=== PATIENT | male | born 1965 | race Caucasian/White ===

== ENCOUNTER 2018-05-24 19:37 | Emergency (ER) | payer MEDICARE ==
[~2018-05-24] VITALS: Ht 190.5 cm; Wt 65.8 kg
== END 2018-05-25 00:09 | disposition home or self-care (01) ==
LOC: ER 19:37
DX: S80.212A Abrasion, left knee, initial encounter (principal); W19.XXXA Unspecified fall, initial encounter
CPT/HCPCS: 73070; 73502; 73562-LT; 73610; 99283-25; A9270-GY

== ENCOUNTER 2018-07-12 17:38 | Emergency (ER) | payer MEDICARE, OTHER ==
[~2018-07-12] VITALS: Ht 190.5 cm; Wt 68.0 kg
[2018-07-12] MEDS ORDERED: SINEMET 25-1001 EACH PO (18:18)
[2018-07-12] MEDS ORDERED: GABA600 PO (18:19)
[2018-07-12] MEDS ORDERED: FLUO10 PO (18:19)
[2018-07-12 19:32] LABS: BASOPHILS ABSOLUTE AUTO 0.05 K/mm3 (0.00-0.23); BASOPHILS PERCENT AUTO 1 % (0-2); EOSINOPHILS ABSOLUTE AUTO 0.18 K/mm3 (0.00-0.68); EOSINOPHILS PERCENT AUTO 2 % (0-6); Hematocrit 40.4 % (37.0-53.0); Hemoglobin 13.4 g/dL (13.5-17.5); IMMATURE GRAN ABSOLUTE AUTO 0.02 K/mm3 (0.00-0.10); IMMATURE GRAN PERCENT AUTO 0 % (0-1); LYMPHOCYTES ABSOLUTE AUTO 2.35 K/mm3 (0.84-5.20); LYMPHOCYTES PERCENT AUTO 31 % (21-46); MONOCYTES ABSOLUTE AUTO 0.69 K/mm3 (0.16-1.47); MONOCYTES PERCENT AUTO 9 % (4-13); Mean Corpuscular HGB Conc 33.2 g/dL (31.5-36.5); Mean Corpuscular Volume 90 fL (80-100); Mean Platelet Volume 9.3 fL (9.1-12.4); NEUTROPHILS PERCENT AUTO 57 % (41-73); Platelet Count 238 K/mm3 (150-400); RDW Coefficient Variation 11.9 % (11.7-14.2); RDW Standard Deviation 39.6 fL (35.1-46.3); Red Blood Cell Count 4.47 M/mm3 (4.30-5.90); White Blood Cell Count 7.59 K/mm3 (4.00-11.30)
[2018-07-12 19:46] LABS: C-REACTIVE PROTEIN, EXT RANGE 0.352 mg/dL (0.000-0.300)
[2018-07-12 19:48] LABS: Alanine Aminotransfer (ALT/SGP 13 U/L (12-78); Albumin, Blood 4.2 g/dL (3.4-5.0); Albumin/Globulin Ratio 1.1 (0.8-1.8); Alk Phos 63 U/L (50-136); Anion Gap 4 mmol/L (6-16); Aspartate Aminotrans (AST/SGOT 19 U/L (12-37); Bilirubin, Total 0.4 mg/dL (0.1-1.0); Blood Urea Nitrogen 16 mg/dL (8-24); Bun/Creatinine Ratio 19.5 (12.0-20.0); CO2, Blood 28 mmol/L (21-32); CPK Creatine Kinase 235 U/L (39-308); Calcium, Blood 9.2 mg/dL (8.5-10.1); Chloride, Blood 106 mmol/L (98-108); Creatinine, Blood 0.82 mg/dL (0.60-1.20); Globulin, Blood 3.7 g/dL (2.2-4.0); Glomerular Filtration Rate >60 (60-); Glucose, Blood 86 mg/dL (70-99); Potassium, Blood 4.4 mmol/L (3.5-5.5); Sodium, Blood 138 mmol/L (136-145); Total Protein, Blood 7.9 g/dL (6.4-8.2)
== END 2018-07-12 21:38 | disposition home or self-care (01) ==
LOC: ER 17:38
PROVIDERS: Physician Assistant
DX: S46.211A Strain of muscle, fascia and tendon of other parts of biceps, right arm, initial encounter (principal); W19.XXXA Unspecified fall, initial encounter; Z79.899 Other long term (current) drug therapy; Z87.891 Personal history of nicotine dependence; G20 Parkinson's disease
CPT/HCPCS: 36415; 73080; 80053; 82550; 83690; 84484; 85025; 85651; 86140; 96361; 96374; 99283-25; A9270-GY; J1170; J7030; Q0163

== ENCOUNTER 2018-08-04 03:37 | Emergency (ER) | payer MEDICARE, OTHER ==
[~2018-08-04] VITALS: Ht 188 cm; Wt 74.8 kg
[~2018-08-04 03:37] MED LIST: FLUO10 PO; GABA600 PO; SINEMET 25-1001 EACH PO
[2018-08-04] MEDS ORDERED: ONDA4ODT MM (04:41)
== END 2018-08-04 06:00 | disposition home or self-care (01) ==
LOC: ER 03:37
DX: S06.9X9A Unspecified intracranial injury with loss of consciousness of unspecified duration, initial encounter (principal); S00.83XA Contusion of other part of head, initial encounter; G20 Parkinson's disease; Z79.899 Other long term (current) drug therapy; W19.XXXA Unspecified fall, initial encounter
CPT/HCPCS: 70450; 72125; 96374; 96375; 99285-25; J2060; J2405; J3010

== ENCOUNTER 2019-01-05 19:46 | Emergency (ER) | payer MEDICARE, OTHER ==
[~2019-01-05] VITALS: Ht 188 cm; Wt 79.4 kg
[~2019-01-05 19:46] MED LIST changes: +ONDA4ODT MM
[2019-01-05 20:14] LABS: BASOPHILS ABSOLUTE AUTO 0.07 K/mm3 (0.00-0.23); BASOPHILS PERCENT AUTO 1 % (0-2); EOSINOPHILS PERCENT AUTO 5 % (0-6); Hematocrit 41.2 % (37.0-53.0); Hemoglobin 13.6 g/dL (13.5-17.5); IMMATURE GRAN ABSOLUTE AUTO 0.01 K/mm3 (0.00-0.10); IMMATURE GRAN PERCENT AUTO 0 % (0-1); LYMPHOCYTES ABSOLUTE AUTO 1.97 K/mm3 (0.84-5.20); LYMPHOCYTES PERCENT AUTO 32 % (21-46); MONOCYTES ABSOLUTE AUTO 0.49 K/mm3 (0.16-1.47); MONOCYTES PERCENT AUTO 8 % (4-13); Mean Corpuscular HGB 29.8 pg (26.0-34.0); Mean Corpuscular Volume 90 fL (80-100); Mean Platelet Volume 9.1 fL (9.1-12.4); NEUTROPHILS ABSOLUTE AUTO 3.25 K/mm3 (1.96-9.15); NEUTROPHILS PERCENT AUTO 54 % (41-73); Platelet Count 250 K/mm3 (150-400); RDW Coefficient Variation 11.9 % (11.7-14.2); RDW Standard Deviation 39.4 fL (35.1-46.3); Red Blood Cell Count 4.57 M/mm3 (4.30-5.90); White Blood Cell Count 6.09 K/mm3 (4.00-11.30)
[2019-01-05 20:35] LABS: Alanine Aminotransfer (ALT/SGP 15 U/L (12-78); Albumin, Blood 3.9 g/dL (3.4-5.0); Albumin/Globulin Ratio 1.1 (0.8-1.8); Alk Phos 90 U/L (50-136); Anion Gap 5 mmol/L (6-16); Aspartate Aminotrans (AST/SGOT 19 U/L (12-37); Bilirubin, Total 0.4 mg/dL (0.1-1.0); Blood Urea Nitrogen 16 mg/dL (8-24); Bun/Creatinine Ratio 17.8 (12.0-20.0); CO2, Blood 27 mmol/L (21-32); Calcium, Blood 9.1 mg/dL (8.5-10.1); Chloride, Blood 107 mmol/L (98-108); Globulin, Blood 3.4 g/dL (2.2-4.0); Glomerular Filtration Rate >60 (60-); Glucose, Blood 83 mg/dL (70-99); Potassium, Blood 4.3 mmol/L (3.5-5.5); Sodium, Blood 139 mmol/L (136-145); Total Protein, Blood 7.3 g/dL (6.4-8.2); Troponin I <0.015 ng/mL (0.000-0.040)
== END 2019-01-06 00:19 | disposition home or self-care (01) ==
LOC: ER 19:46
PROVIDERS: Emergency Medicine
DX: R55 Syncope and collapse (principal); S01.81XA Laceration without foreign body of other part of head, initial encounter; G20 Parkinson's disease; Z87.891 Personal history of nicotine dependence; Z79.899 Other long term (current) drug therapy; W01.10XA Fall on same level from slipping, tripping and stumbling with subsequent striking against unspecified object, initial encounter
CPT/HCPCS: 12011; 70450; 72125; 80053; 84484; 85025; 93005; 93010; 96374-59; 99284-25; J3010

== ENCOUNTER 2019-01-28 10:10 | Emergency (ER) | payer MEDICARE, OTHER ==
[~2019-01-28] VITALS: Ht 188 cm; Wt 79.4 kg
== END 2019-01-28 11:52 | disposition home or self-care (01) ==
LOC: ER 10:10
DX: M25.572 Pain in left ankle and joints of left foot (principal); Z87.891 Personal history of nicotine dependence
CPT/HCPCS: 29515; 73610; 99283-25; L1906

== ENCOUNTER 2019-03-19 04:10 | Emergency (ER) | payer MEDICARE, OTHER ==
[~2019-03-19] VITALS: Ht 188 cm; Wt 79.4 kg
[2019-03-19] MEDS ORDERED: AMAN100 PO (04:26)
[2019-03-19 05:06] LABS: BASOPHILS ABSOLUTE AUTO 0.05 K/mm3 (0.00-0.23); BASOPHILS PERCENT AUTO 1 % (0-2); EOSINOPHILS ABSOLUTE AUTO 0.34 K/mm3 (0.00-0.68); EOSINOPHILS PERCENT AUTO 7 % (0-6); Hematocrit 36.4 % (37.0-53.0); Hemoglobin 11.8 g/dL (13.5-17.5); IMMATURE GRAN ABSOLUTE AUTO 0.01 K/mm3 (0.00-0.10); IMMATURE GRAN PERCENT AUTO 0 % (0-1); LYMPHOCYTES ABSOLUTE AUTO 1.89 K/mm3 (0.84-5.20); LYMPHOCYTES PERCENT AUTO 36 % (21-46); MONOCYTES PERCENT AUTO 12 % (4-13); Mean Corpuscular HGB 29.5 pg (26.0-34.0); Mean Corpuscular HGB Conc 32.4 g/dL (31.5-36.5); Mean Corpuscular Volume 91 fL (80-100); Mean Platelet Volume 9.5 fL (9.1-12.4); NEUTROPHILS ABSOLUTE AUTO 2.33 K/mm3 (1.96-9.15); NEUTROPHILS PERCENT AUTO 45 % (41-73); Platelet Count 214 K/mm3 (150-400); RDW Coefficient Variation 12.1 % (11.7-14.2); RDW Standard Deviation 40.7 fL (35.1-46.3); White Blood Cell Count 5.22 K/mm3 (4.00-11.30)
[2019-03-19 05:17] LABS: Alanine Aminotransfer (ALT/SGP 21 U/L (12-78); Albumin, Blood 3.6 g/dL (3.4-5.0); Albumin/Globulin Ratio 1.2 (0.8-1.8); Alk Phos 76 U/L (50-136); Anion Gap 4 mmol/L (6-16); Aspartate Aminotrans (AST/SGOT 13 U/L (12-37); Bilirubin, Total 0.4 mg/dL (0.1-1.0); Blood Urea Nitrogen 22 mg/dL (8-24); Bun/Creatinine Ratio 26.3 (12.0-20.0); CO2, Blood 27 mmol/L (21-32); Calcium, Blood 8.6 mg/dL (8.5-10.1); Chloride, Blood 108 mmol/L (98-108); Creatinine, Blood 0.84 mg/dL (0.60-1.20); Globulin, Blood 3.1 g/dL (2.2-4.0); Glomerular Filtration Rate >60 (60-); Glucose, Blood 84 mg/dL (70-99); Magnesium, Blood 2.1 mg/dL (1.6-2.4); Potassium, Blood 4.2 mmol/L (3.5-5.5); Sodium, Blood 139 mmol/L (136-145); Total Protein, Blood 6.7 g/dL (6.4-8.2)
== END 2019-03-19 07:29 | disposition home or self-care (01) ==
LOC: ER 04:10
PROVIDERS: Emergency Medicine
DX: R60.0 Localized edema (principal); Z79.899 Other long term (current) drug therapy; Z87.891 Personal history of nicotine dependence
CPT/HCPCS: 36415; 80053; 83735; 83880; 85025; 93971; 99284-25

== ENCOUNTER 2019-08-02 14:56 | Observation (INO) | payer MEDICARE, OTHER ==
[~2019-08-02] VITALS: Ht 188 cm; Wt 78.9 kg
[~2019-08-02 14:56] MED LIST changes: +AMAN100 PO; +CARBIDOPA-LEVO1 EA15 PO; -FLUO10 PO; +Prozac40 MG PO; -SINEMET 25-1001 EACH PO
[2019-08-02] MEDS ORDERED: GABAPENTIN600 MG PO (15:24)
[2019-08-02 15:46] LABS: BASOPHILS ABSOLUTE AUTO 0.06 K/mm3 (0.00-0.23); BASOPHILS PERCENT AUTO 1 % (0-2); EOSINOPHILS ABSOLUTE AUTO 0.35 K/mm3 (0.00-0.68); EOSINOPHILS PERCENT AUTO 5 % (0-6); Hematocrit 42.3 % (37.0-53.0); Hemoglobin 13.6 g/dL (13.5-17.5); IMMATURE GRAN ABSOLUTE AUTO 0.02 K/mm3 (0.00-0.10); IMMATURE GRAN PERCENT AUTO 0 % (0-1); LYMPHOCYTES ABSOLUTE AUTO 1.56 K/mm3 (0.84-5.20); LYMPHOCYTES PERCENT AUTO 21 % (21-46); MONOCYTES ABSOLUTE AUTO 0.69 K/mm3 (0.16-1.47); MONOCYTES PERCENT AUTO 9 % (4-13); Mean Corpuscular HGB 28.9 pg (26.0-34.0); Mean Corpuscular HGB Conc 32.2 g/dL (31.5-36.5); Mean Corpuscular Volume 90 fL (80-100); Mean Platelet Volume 9.1 fL (9.1-12.4); NEUTROPHILS ABSOLUTE AUTO 4.73 K/mm3 (1.96-9.15); NEUTROPHILS PERCENT AUTO 64 % (41-73); Platelet Count 278 K/mm3 (150-400); RDW Standard Deviation 39.8 fL (35.1-46.3); Red Blood Cell Count 4.71 M/mm3 (4.30-5.90); White Blood Cell Count 7.41 K/mm3 (4.00-11.30)
[2019-08-02 15:48] LABS: Alanine Aminotransfer (ALT/SGP 30 U/L (12-78); Albumin, Blood 3.8 g/dL (3.4-5.0); Alk Phos 77 U/L (50-136); Anion Gap 3 mmol/L (6-16); Aspartate Aminotrans (AST/SGOT 34 U/L (12-37); Bilirubin, Total 0.3 mg/dL (0.1-1.0); Blood Urea Nitrogen 13 mg/dL (8-24); Bun/Creatinine Ratio 15.4 (12.0-20.0); CO2, Blood 30 mmol/L (21-32); Calcium, Blood 9.2 mg/dL (8.5-10.1); Chloride, Blood 105 mmol/L (98-108); Creatinine, Blood 0.85 mg/dL (0.60-1.20); Globulin, Blood 3.9 g/dL (2.2-4.0); Glomerular Filtration Rate >60 (60-); Glucose, Blood 72 mg/dL (70-99); Potassium, Blood 4.9 mmol/L (3.5-5.5); Sodium, Blood 138 mmol/L (136-145); Total Protein, Blood 7.7 g/dL (6.4-8.2); Troponin I <0.015 ng/mL (0.000-0.040)
[2019-08-02 19:33] LABS: Source, Urine Clean Catch
[2019-08-02 19:43] LABS: Appearance, Urine Clear (Clear); Bilirubin, Urine Neg (Neg); Blood, Urine Neg (Neg); Color, Urine Yellow (P-Yellow); Glucose Qualitative, Urine Neg (Neg); Ketones, Urine Neg (Neg); Leukocyte Esterase, Urine 1+ (Neg); Nitrite, Urine Neg (Neg); Protein, Urine Neg (Neg); Urobilinogen, Urine NORM (Normal); pH, Urine 6.5 (5.0-8.0)
[2019-08-02 19:50] LABS: Red Blood Cells, Urine 0-2 /hpf (0-2); Squamous Epithelial Cells Not Seen /hpf (Few); White Blood Cells, Urine 0-2 /hpf (0-5)
[2019-08-02 19:51] LABS: Bacteria Mod /hpf; Hyaline Casts 0-2 /lpf (0-2)
[2019-08-03 05:08] LABS: CHOL/HDL RATIO 3.1; Cholesterol 163 mg/dL (50-200); HDL Cholesterol 53 mg/dL (>39); LDL/HDL RATIO 1.7; Low Density Lipoprotein Chol 92 mg/dL (0-110); Triglycerides 92 mg/dL (30-160); Very Low Density Lipoprot Chol 18 mg/dL (6-32)
[2019-08-03] MEDS ORDERED: METH40 PO (06:32)
[2019-08-03] MEDS ORDERED: ASPI81CH PO (13:10)
--- NOTE | 2019-08-03 15:06 | NUR ---
Per admit trigger, I met with Mr. Johnson to offer information/education about advanced care planning. He was very interested in completing an Advanced Directive. I explained the document to him. He plans to complete it post-discharge. I will remain available.
--- NOTE | 2019-08-03 15:42 | NUR ---
DISCHARGE NOTE PT WENT HOME BY [facility]AXI. PIV REMOVED. ONLY NEW MED WAS ASPIRIN (OTC), SO MEDS WERE NOT FAXED, BUT WENT OVER MED CHANGES. EDUCATED ON CVA PREVENTION. [facility] IS TO CALL TO MAKE F/U APPT. PT GOT HIS ONE DOSE OF METHADONE PRIOR TO DC.
== END 2019-08-03 15:17 | disposition home or self-care (01) ==
LOC: ER 14:56 → MEDS 14:57 → ENPENDDIS 08-03 12:35 → MEDS 08-03 15:17
PROVIDERS: Emergency Medicine; ADMIT Internal Medicine
DX: I65.23 Occlusion and stenosis of bilateral carotid arteries (principal); G20 Parkinson's disease; G89.4 Chronic pain syndrome; Z79.899 Other long term (current) drug therapy; Z79.891 Long term (current) use of opiate analgesic; Z87.891 Personal history of nicotine dependence
CPT/HCPCS: 36415; 70450; 70551; 71045; 80053; 80061; 81001; 82947; 84484; 85025; 87086; 93005; 93010; 93880; 96372; 96374; 97166; 97530; 99285-25; A9270; G0378; J1650; J2405

== ENCOUNTER 2020-01-26 11:38 | Inpatient (IN) | payer MEDICARE, OTHER ==
[~2020-01-26] VITALS: Ht 188 cm; Wt 79.6 kg
[~2020-01-26 11:38] MED LIST changes: +ASPI81CH PO; +GABAPENTIN600 MG PO; +METH40 PO
[2020-01-26 12:25] LABS: BASOPHILS ABSOLUTE AUTO 0.05 K/mm3 (0.00-0.23); BASOPHILS PERCENT AUTO 1 % (0-2); EOSINOPHILS ABSOLUTE AUTO 0.01 K/mm3 (0.00-0.68); EOSINOPHILS PERCENT AUTO 0 % (0-6); Hematocrit 41.2 % (37.0-53.0); Hemoglobin 13.6 g/dL (13.5-17.5); IMMATURE GRAN ABSOLUTE AUTO 0.02 K/mm3 (0.00-0.10); IMMATURE GRAN PERCENT AUTO 0 % (0-1); LYMPHOCYTES ABSOLUTE AUTO 0.66 K/mm3 (0.84-5.20); LYMPHOCYTES PERCENT AUTO 8 % (21-46); MONOCYTES ABSOLUTE AUTO 0.45 K/mm3 (0.16-1.47); MONOCYTES PERCENT AUTO 5 % (4-13); Mean Corpuscular HGB 30.1 pg (26.0-34.0); Mean Corpuscular Volume 91 fL (80-100); Mean Platelet Volume 9.6 fL (9.1-12.4); NEUTROPHILS ABSOLUTE AUTO 7.39 K/mm3 (1.96-9.15); NEUTROPHILS PERCENT AUTO 86 % (41-73); Platelet Count 282 K/mm3 (150-400); RDW Coefficient Variation 12.3 % (11.7-14.2); Red Blood Cell Count 4.52 M/mm3 (4.30-5.90); White Blood Cell Count 8.58 K/mm3 (4.00-11.30)
[2020-01-26 12:44] LABS: Alanine Aminotransfer (ALT/SGP 50 U/L (12-78); Albumin, Blood 3.8 g/dL (3.4-5.0); Albumin/Globulin Ratio 1.1 (0.8-1.8); Alk Phos 100 U/L (50-136); Anion Gap 10 mmol/L (6-16); Aspartate Aminotrans (AST/SGOT 40 U/L (12-37); Bilirubin, Total 0.3 mg/dL (0.1-1.0); Blood Urea Nitrogen 13 mg/dL (8-24); Bun/Creatinine Ratio 20.3 (12.0-20.0); CO2, Blood 22 mmol/L (21-32); Calcium, Blood 9.2 mg/dL (8.5-10.1); Chloride, Blood 104 mmol/L (98-108); Creatinine, Blood 0.64 mg/dL (0.60-1.20); Globulin, Blood 3.6 g/dL (2.2-4.0); Glomerular Filtration Rate >60 (60-); Glucose, Blood 115 mg/dL (70-99); Potassium, Blood 4.5 mmol/L (3.5-5.5); Sodium, Blood 136 mmol/L (136-145); Total Protein, Blood 7.4 g/dL (6.4-8.2)
[2020-01-26 16:03] LABS: U Amphetamine Screen Not Detected; U Barbituate Screen Not Detected; U Benzodiazapine Screen Not Detected; U Cocaine Screen Not Detected; U Methadone Screen DETECTED; U Methamphetamine Screen Not Detected; U Opiates Screen Not Detected; U Phencyclidine Screen Not Detected
[2020-01-26 16:04] LABS: U Buprenorphine Screen Not Detected; U Cannabinoids Screen Not Detected; U Oxycodone Screen Not Detected; U Propoxyphene Screen Not Detected
[2020-01-26 16:39] LABS: International Normalized Ratio 0.98; Prothrombin Time Results 10.5 Sec (9.7-11.5)
--- NOTE | 2020-01-26 19:10 | NUR ---
ADMIT NOTE RECEIVED REPORT FROM ENMA AYALA IN ED. PT TO ROOM AT 1755, 4 PERSON TRANSFER ASSIST WITH SLIDER SHEET. PT ON IV FLUDIS WITH ADDITIVES. SEVERE TREMORS; NUMB/TINGLING; COLLINS 7/10; DIAPHORETIC; ANXIOUS; CIWA 25; MEDICATED PER EMAR. PT STATES LAST DRINK 0700 01/26/20; DRINKING 1/2 GALLOR OF WHISKEY DAILY. PT LIVES WITH BROTHER WHO HELPS WHEN HE IS NOT AT WORK, PT STATES HE WALKS WITH WALKER SHORT DISTANCES. OUTPATIENT PLANS TO BE ADMITED TO [facility]. PT ORIENTED TO ROOM AND CALL LIGHT. EDUCATED ON FALL RISK AND BED ALARM. PT A&Ox4; ANSWER QUESTIONS APPROPRIATELY, SPEECH SLURRED AT TIMES. PUPILS EQUAL AT 5 MM, SLUGGISH REPOSNSE TO LIGHT. PT DENIES PAIN, SOB, NAUSEA AND DIZZINESS. VSS. NO OTHER ACUTE CHAGNES NOTED. BED IN LOW, BED ALARM ON, CALL LIGHT WITHIN REACH.
--- NOTE | 2020-01-26 20:05 | NUR ---
ASSUMED CARE RECEIVED REPORT BEDSIDE FROM ENMA MIRZA; PT SLEEPING SOUNDLY; CAMERA VERIFIED ON IN ROOM; VSS; CURRENTLY NO TELE ON DUE TO TREMORS PER REPORT; O2 SATS >93 ON RA; SEIZURE PADS IN PLACE; CALL LIGHT IN REACH; BED IN LOWEST POSITION; BED ALARM ON FOR SAFETY.
[2020-01-27 04:10] LABS: Alanine Aminotransfer (ALT/SGP 9 U/L (12-78); Albumin/Globulin Ratio 0.9 (0.8-1.8); Alk Phos 80 U/L (50-136); Anion Gap 6 mmol/L (6-16); Aspartate Aminotrans (AST/SGOT 27 U/L (12-37); Bilirubin, Direct 0.1 mg/dL (0.0-0.3); Bilirubin, Indirect 0.6 mg/dL (0.1-0.7); Bilirubin, Total 0.7 mg/dL (0.1-1.0); Blood Urea Nitrogen 12 mg/dL (8-24); Bun/Creatinine Ratio 16.1 (12.0-20.0); CO2, Blood 27 mmol/L (21-32); Chloride, Blood 107 mmol/L (98-108); Creatinine, Blood 0.75 mg/dL (0.60-1.20); Globulin, Blood 3.2 g/dL (2.2-4.0); Glomerular Filtration Rate >60 (60-); Glucose, Blood 82 mg/dL (70-99); Magnesium, Blood 2.3 mg/dL (1.6-2.4); Phosphorus, Blood 2.9 mg/dL (2.5-4.9); Potassium, Blood 3.7 mmol/L (3.5-5.5); Sodium, Blood 140 mmol/L (136-145); Total Protein, Blood 6.2 g/dL (6.4-8.2)
--- NOTE | 2020-01-27 06:28 | NUR ---
SHIFT SUMMARY PT ORIENTED TO SELF; PLACE; EVENT & BIRTHDATE, WHEN FULLY AWAKE; ATIVAN GIVEN FOR CIWA OF 18, SEVERE TREMORS / SWEATING; VSS; DENIES CHEST PAIN; O2 SATS >93 ON RA; CAMERA ON IN ROOM; SEIZURE PADS IN PLACE; URINAL W/ ASSISTANCE IN BED; ATTENDS IN PLACE BACK UP; CALL LIGHT IN REACH; BED IN LOWEST POSITION; WILL CONTINUE TO MONITOR CLOSELY UNTIL HAND OFF TO DAY SHIFT RN.
--- NOTE | 2020-01-27 18:38 | NUR ---
NO ACUTE EVENTS THIS SHIFT, VSS. PATIENT ORIENTED, RESPONDS TO VERBAL STIMULUS. CIWA SCORES RANGED FROM 9-16 THIS SHIFT. PATIENT ENDORSED CHRONIC HIP AND LOWER BACK PAIN, HOWEVER ENDORSED IMPROVEMENT AFTER ATIVAN ADMINISTRATIONS PER CIWA PROTOCOL. PATIENT ON CAMERA, NO NOTABLE EVENTS THIS SHIFT.
[2020-01-28 04:12] LABS: Anion Gap 3 mmol/L (6-16); Blood Urea Nitrogen 9 mg/dL (8-24); Bun/Creatinine Ratio 11.8 (12.0-20.0); CO2, Blood 30 mmol/L (21-32); Calcium, Blood 8.9 mg/dL (8.5-10.1); Chloride, Blood 106 mmol/L (98-108); Creatinine, Blood 0.76 mg/dL (0.60-1.20); Glomerular Filtration Rate >60 (60-); Glucose, Blood 80 mg/dL (70-99); Potassium, Blood 3.6 mmol/L (3.5-5.5); Sodium, Blood 139 mmol/L (136-145)
--- NOTE | 2020-01-28 06:35 | NUR ---
SHIFT SUMMARY PT A&O TO SELF & LOCATION. DISORIENTED TO DATE BY 2 DAYS & UNABLE TO ADD SERIAL #'[id number]. PT CIWA < 10 W/ MOST SIGNIFICANT SCORING BEING TREMORS WHICH PT HAS AT BASELINE. PT VSS. SPO2 > 90% ON RA. PT NO TELE STATUS. PT W/ EPISODES OF CONTINENCE & INCONTINENCE THIS SHIFT, USING URINAL AT TIMES OR SOILING ATTENDS. Q2H REPOSITIONING PROVIDED. PT SLEEPING MAJORITY OF SHIFT W/ NO NEED FOR CIWA TREATMENT PER EMAR THIS SHIFT. WILL CONTINUE TO MONITOR & PROVIDE CARE UNTIL REPORT OFF TO DAY SHIFT RN.
--- NOTE | 2020-01-28 17:55 | NUR ---
NO ACUTE EVENTS THIS SHIFT. PATIENT'S VSS, HR NOTED IN 50S. CIWA SCORE RANGED 9-10 THIS SHIFT, 1 MG ATIVAN EFFECTIVE FOR WITHDRAWAL MANAGEMENT. TREMORS ABSENT AT TIMES THIS SHIFT, AT WORST SEVERE ARM JERKING MOTIONS NOTED. PATIENT IS PLEASANT AND APPRECIATIVE OF CARE, UNDERSTANDS AND WILLING PART OF WITHDRAWAL MANAGEMENT AND INTERESTED IN ALCOHOL USE CESSATION. PATIENT IS NOT ABLE TO MANAGE PO INTAKE WITHOUT ASSISTANCE R/T PARKINSON'S, PO MEDS GIVEN EFFECTIVELY VIA APPLESAUCE D/T TREMORS, SUFFICIENT SWALLOW NOTED.
[2020-01-29 04:10] LABS: BASOPHILS ABSOLUTE AUTO 0.05 K/mm3 (0.00-0.23); BASOPHILS PERCENT AUTO 1 % (0-2); EOSINOPHILS ABSOLUTE AUTO 0.35 K/mm3 (0.00-0.68); EOSINOPHILS PERCENT AUTO 6 % (0-6); Hematocrit 40.4 % (37.0-53.0); Hemoglobin 12.9 g/dL (13.5-17.5); IMMATURE GRAN ABSOLUTE AUTO 0.02 K/mm3 (0.00-0.10); IMMATURE GRAN PERCENT AUTO 0 % (0-1); LYMPHOCYTES ABSOLUTE AUTO 1.67 K/mm3 (0.84-5.20); LYMPHOCYTES PERCENT AUTO 28 % (21-46); MONOCYTES ABSOLUTE AUTO 0.58 K/mm3 (0.16-1.47); MONOCYTES PERCENT AUTO 10 % (4-13); Mean Corpuscular HGB 29.3 pg (26.0-34.0); Mean Corpuscular HGB Conc 31.9 g/dL (31.5-36.5); Mean Corpuscular Volume 92 fL (80-100); Mean Platelet Volume 9.4 fL (9.1-12.4); NEUTROPHILS ABSOLUTE AUTO 3.24 K/mm3 (1.96-9.15); NEUTROPHILS PERCENT AUTO 55 % (41-73); Platelet Count 237 K/mm3 (150-400); RDW Coefficient Variation 11.9 % (11.7-14.2); RDW Standard Deviation 40.5 fL (35.1-46.3); Red Blood Cell Count 4.41 M/mm3 (4.30-5.90); White Blood Cell Count 5.91 K/mm3 (4.00-11.30)
[2020-01-29 04:30] LABS: Alanine Aminotransfer (ALT/SGP 10 U/L (12-78); Albumin, Blood 3.2 g/dL (3.4-5.0); Alk Phos 86 U/L (50-136); Anion Gap 5 mmol/L (6-16); Aspartate Aminotrans (AST/SGOT 36 U/L (12-37); Bilirubin, Total 0.6 mg/dL (0.1-1.0); Blood Urea Nitrogen 9 mg/dL (8-24); Bun/Creatinine Ratio 11.1 (12.0-20.0); CO2, Blood 30 mmol/L (21-32); Calcium, Blood 9.3 mg/dL (8.5-10.1); Chloride, Blood 105 mmol/L (98-108); Creatinine, Blood 0.81 mg/dL (0.60-1.20); Globulin, Blood 3.2 g/dL (2.2-4.0); Glomerular Filtration Rate >60 (60-); Glucose, Blood 78 mg/dL (70-99); Sodium, Blood 140 mmol/L (136-145); Total Protein, Blood 6.4 g/dL (6.4-8.2)
--- NOTE | 2020-01-29 05:57 | NUR ---
SHIFT SUMMARY PT CONTINUES TO BE A&O TO SELF & LOCATION, FOLLOWING INSTRUCTIONS. CONTINUED BUE TREMORS/JERKING MOVEMENTS NOTED. VSS. SPO2 > 90% ON RA. PT C/O HEADACHE, MEDICATED W/ TYLENOL PER EMAR X1 THIS SHIFT & DAMP WASH CLOTH TO FOREHEAD W/ PT REPORT OF IMPROVEMENT. PT SLEEPING MAJORITY OF SHIFT.
--- NOTE | 2020-01-29 17:29 | NUR ---
NO ACUTE EVENTS THIS SHIFT. VSS, CIWA RANGED 8-16. PATIENT APPEARS MORE ALERT THIS SHIFT, SPEAKING MORE CLEARLY AND HOLDING CONVERSATIONS WITH NURSING STAFF. PATIENT STILL NOT ABLE TO USE CALL LIGHT. WITH FFREQUENT ROUNDING PATIENT IS ABLE TO VERBALIZE WELL ANY NEEDS FOR PO INTAKE/TOILETING ETC. ON ROOM AIR, WILL SNORE AT TIMES WHEN SLEEPING, BUT NO APNEIC EPISODES NOTED THIS SHIFT.
[2020-01-30 04:12] LABS: BASOPHILS ABSOLUTE AUTO 0.07 K/mm3 (0.00-0.23); BASOPHILS PERCENT AUTO 1 % (0-2); EOSINOPHILS ABSOLUTE AUTO 0.38 K/mm3 (0.00-0.68); EOSINOPHILS PERCENT AUTO 7 % (0-6); Hematocrit 41.4 % (37.0-53.0); Hemoglobin 13.6 g/dL (13.5-17.5); IMMATURE GRAN ABSOLUTE AUTO 0.01 K/mm3 (0.00-0.10); IMMATURE GRAN PERCENT AUTO 0 % (0-1); LYMPHOCYTES ABSOLUTE AUTO 1.63 K/mm3 (0.84-5.20); LYMPHOCYTES PERCENT AUTO 31 % (21-46); MONOCYTES ABSOLUTE AUTO 0.56 K/mm3 (0.16-1.47); MONOCYTES PERCENT AUTO 11 % (4-13); Mean Corpuscular HGB Conc 32.9 g/dL (31.5-36.5); Mean Corpuscular Volume 91 fL (80-100); Mean Platelet Volume 9.6 fL (9.1-12.4); NEUTROPHILS ABSOLUTE AUTO 2.59 K/mm3 (1.96-9.15); NEUTROPHILS PERCENT AUTO 49 % (41-73); Platelet Count 225 K/mm3 (150-400); RDW Coefficient Variation 11.9 % (11.7-14.2); RDW Standard Deviation 40.2 fL (35.1-46.3); Red Blood Cell Count 4.54 M/mm3 (4.30-5.90); White Blood Cell Count 5.24 K/mm3 (4.00-11.30)
[2020-01-30 04:33] LABS: Alanine Aminotransfer (ALT/SGP 14 U/L (12-78); Albumin, Blood 3.1 g/dL (3.4-5.0); Albumin/Globulin Ratio 0.9 (0.8-1.8); Alk Phos 83 U/L (50-136); Anion Gap 5 mmol/L (6-16); Aspartate Aminotrans (AST/SGOT 30 U/L (12-37); Bilirubin, Total 0.5 mg/dL (0.1-1.0); Blood Urea Nitrogen 11 mg/dL (8-24); CO2, Blood 29 mmol/L (21-32); Calcium, Blood 9.2 mg/dL (8.5-10.1); Chloride, Blood 105 mmol/L (98-108); Creatinine, Blood 0.78 mg/dL (0.60-1.20); Globulin, Blood 3.4 g/dL (2.2-4.0); Glomerular Filtration Rate >60 (60-); Glucose, Blood 89 mg/dL (70-99); Sodium, Blood 139 mmol/L (136-145); Total Protein, Blood 6.5 g/dL (6.4-8.2)
--- NOTE | 2020-01-30 06:11 | NUR ---
SHIFT SUMMARY PT CONTINUES TO BE A&O X3. PCU NO TELE STATUS. VSS. SPO2 > 90% ON RA. BUE TREMORS/JERKING MOVEMENTS NOTED. PT C/O HEADACHE, MEDICATED W/ TYLENOL PER EMAR X1 THIS SHIFT. PT C/O NAUSEA & "GETTING ANXIOUS" @ APPROX 2200 THIS SHIFT W/ PT REPORT OF "I USUALLY MEDICATE W/ ALCOHOL AT THIS TIME." PT PROVIDED W/ PRN ATIVAN PER EMAR W/ PT REPORT OF IMPROVEMENT IN SYMPTOMS. CIWA 5-8 THIS SHIFT. WILL CONTINUE TO MONITOR & PROVIDE CARE UNTIL REPORT OFF TO DAY SHIFT RN.
--- NOTE | 2020-01-30 11:01 | NUR ---
ASSUMED CARE FROM [facility] RN. PT HAS HISTORY OF PARKINSON'S DISEASE; PT STATES "TREMORS ARE WORSE THAN NORMAL." PT HAS BEEN FEELING ANXIOUS THIS MORNING; 2MG OF ATIVAN WAS GIVEN THIS MORNING; PT STATED HE WAS NOT FEELING ANY RELIEF AND WAS GIVEN 2MG MORE OF ATIVAN; PT IS ATTEMPTED TO SLEEP AND REST AT THIS TIME. PT TOOK ALL MORNING MEDICATIONS AND WAS REPOSITIONED AFTER BREAKFAST. PT WAS ASSISTED WITH HIS MEAL BY LUIS CANELA RN.
--- NOTE | 2020-01-30 18:12 | NUR ---
SHIFT SUMMARY PT HAS CHANGED TO MEDICAL STATUS AND IS CURRENTLY WAITING ON A BED. VS STABLE, CIWA SCORE 10 THIS EVENING. PT REPORTS FEELING ANXIOUS. EARLIER IN THE DAY HE WAS GIVEN 4MG OF ATIVAN SPLIT INTO 2 2MG DOSES, AFTER HE REPORTED STILL FEELING ANXIOUS DESPITE THE 1ST 2MG DOSE; PT WAS THEN ABLE TO SLEEP AND REST, HOWEVER HIS BREATING SLOWED TO 12-14 RESPIRATIONS PER MINUTE FROM AN EARLIER 18; WILL CONTINUE TO MONITOR RESPIRATIONS WITH ATIVAN ADMINISTRATION. PT WAS ABLE TO USE THE URINAL THROUGHOUT THE DAY WITH STAFF ASSISTANCE. PT RESTING AT THIS TIME.
--- NOTE | 2020-01-30 18:21 | NUR ---
SHIFT SUMMARY ADDITION: PT HAS BEEN TAKING METHADONE BUT WILL REMAIN HERE AT THE HOSPITAL FOR THE NEXT WEEK OR SO AND WILL BE WEANED FROM THE METHADONE AND SWITCHED TO SABOXONE SO THAT ALL OF THE MEDICATIONS CAN BE UNDER THE CARE OF [facility].
[2020-01-31 03:43] LABS: BASOPHILS ABSOLUTE AUTO 0.06 K/mm3 (0.00-0.23); BASOPHILS PERCENT AUTO 1 % (0-2); EOSINOPHILS ABSOLUTE AUTO 0.42 K/mm3 (0.00-0.68); EOSINOPHILS PERCENT AUTO 6 % (0-6); Hematocrit 41.5 % (37.0-53.0); Hemoglobin 13.2 g/dL (13.5-17.5); IMMATURE GRAN ABSOLUTE AUTO 0.02 K/mm3 (0.00-0.10); IMMATURE GRAN PERCENT AUTO 0 % (0-1); LYMPHOCYTES ABSOLUTE AUTO 1.65 K/mm3 (0.84-5.20); LYMPHOCYTES PERCENT AUTO 25 % (21-46); MONOCYTES ABSOLUTE AUTO 0.59 K/mm3 (0.16-1.47); MONOCYTES PERCENT AUTO 9 % (4-13); Mean Corpuscular HGB 29.1 pg (26.0-34.0); Mean Corpuscular HGB Conc 31.8 g/dL (31.5-36.5); Mean Corpuscular Volume 91 fL (80-100); Mean Platelet Volume 9.2 fL (9.1-12.4); NEUTROPHILS ABSOLUTE AUTO 3.89 K/mm3 (1.96-9.15); NEUTROPHILS PERCENT AUTO 59 % (41-73); Platelet Count 225 K/mm3 (150-400); RDW Standard Deviation 40.1 fL (35.1-46.3); Red Blood Cell Count 4.54 M/mm3 (4.30-5.90); White Blood Cell Count 6.63 K/mm3 (4.00-11.30)
[2020-01-31 04:05] LABS: Alanine Aminotransfer (ALT/SGP 14 U/L (12-78); Albumin/Globulin Ratio 0.9 (0.8-1.8); Alk Phos 80 U/L (50-136); Anion Gap 4 mmol/L (6-16); Aspartate Aminotrans (AST/SGOT 30 U/L (12-37); Bilirubin, Total 0.3 mg/dL (0.1-1.0); Blood Urea Nitrogen 14 mg/dL (8-24); Bun/Creatinine Ratio 18.4 (12.0-20.0); CO2, Blood 29 mmol/L (21-32); Calcium, Blood 8.9 mg/dL (8.5-10.1); Chloride, Blood 105 mmol/L (98-108); Creatinine, Blood 0.76 mg/dL (0.60-1.20); Globulin, Blood 3.4 g/dL (2.2-4.0); Glomerular Filtration Rate >60 (60-); Glucose, Blood 82 mg/dL (70-99); Potassium, Blood 4.4 mmol/L (3.5-5.5); Sodium, Blood 138 mmol/L (136-145); Total Protein, Blood 6.4 g/dL (6.4-8.2)
--- NOTE | 2020-01-31 04:55 | NUR ---
SHIFT SUMMARY NO ACUTE CHANGES THIS SHIFT. A&O, ABLE TO STATE SELF, PERSON, PLACE, EVENT. SP02>92% ON RA. PT MEDICAL STATUS, NO TELEMETRY. BP SOFT. PT OCCASIONALLY INCONTINENT, C/D ATTENDS IN PLACE. Q2H REPOSITIONS. PT C/O OF HIP/SIATIC PAIN. REPOSITIONING HELPED ALLEVIATE. CIWA SCORES 0-10. PT STATED MODERATE HEADACHE AND ANXIETY AT BEGINNING OF SHIFT. PT ALSO HAD MINIMAL TREMORS, DIFFICULT TO DISTINGUIST W/ TREMORS D/T HX OF PARKINSONS. MEDICATED W/ 2MG ATIVAN PER EMAR. PT WAS ABLE TO EAT VANILLA ENSURE WITH ASSISTANCE AND NO ISSUES. PT SLEPT T/O THE NIGHT. CALL LIGHT IN REACH. WILL CONTINUE TO MONITOR.
--- NOTE | 2020-01-31 18:24 | NUR ---
SHIFT SUMMARY PT IS ALERT AND ORIENTEDx4, BUE TREMORS NOTED, PT REPORTS THEY ARE HIS PARKINSONS TREMORS. CIWA SCORE TODAY 1-4. PT REPORTS HE IS FEELING BETTER. CONTINUES TO NEED ASSITANCE WITH MEALS, BUT HAS A GOOD APPETITE. ABLE TO USE URINAL WITH ASSITANCE OCCASSIONALLY INCONTINENT. VITALS HAVE BEEN STABLE. NO AVAIL MEDICAL BEDS TODAY FOR TRANSFER.
--- NOTE | 2020-02-01 06:24 | NUR ---
shift summary: Pt is alert and oriented to self, place, day and event. No acute changes this shift. Vital signs remained stable. On room air. Moderate anxiety at start of shift with a CIWA of 8, 1mg of ativan given. Subsequent CIWA 0-1. Able to use urinal with assistance. 1 episode of incontinence, attends in place. Q2 turns. BUE tremors (hx of parkinsons). IV in L hand flushing well this shift and saline locked. Bed locked, in low position and call light in reach. Patient slept most of the night and stated "I've been sleeping good" when waking for cares.
--- NOTE | 2020-02-01 18:14 | NUR ---
SHIFT SUMMARY PT IS ALERT AND ORIENTED, FOLLOWS COMMANDS, HAS PARKINSON TREMORS. PHYSICAL AND OCCUPATIONAL THEARPY WORKED WITH PT. PT WAS ABLE TO AMBULATE INTO HALLWAY WITH ASSISTANCE AND SAT UP IN CHAIR FOR A FEW HOURS. CIWA SCORES WERE LOW, PT C/O ANXIETY, BUT FELT IT WAS CLOSER TO HIS HOME ANXIETY LEVEL. DISCUSSED DISCHARGE PLAN WITH DR GROVER AND EFM ANCHOR TACKER. PT CURRENTLY TOLERATING TAPER OF METHADONE. VITALS HAVE BEEN STABLE TODAY.
--- NOTE | 2020-02-02 05:47 | NUR ---
SHIFT SUMMARY PT A&O X 4; PLEASANT & COMPLIANT W/ CARE; NO DISTRESS NOTED; DENIES CHEST PAIN; VSS; O2 SATS >93 ON RA; Q 2 TURNS PROVIDED; PT C/O ANXIETY; ATIVAN ADMINISTERED 1X THIS SHIFT; PO SNACKS PROVIDED W/ ASSISTANCE; PT USES URINAL IN BED W/ ATTENDS IN PLACE FOR INCONTINENT EPISODES; CALL LIGHT IN REACH; BED IN LOWEST POSITION; WILL CONTINUE TO MONITOR UNTIL HAND OFF TO DAY SHIFT RN.
--- NOTE | 2020-02-02 17:12 | NUR ---
PT SUMMARY: NO ACUTE CHANGE FOR THE SHIFT, VITALS HAS BEEN STABLE. PT REQUESTED ATIVAN X1 FOR ANXIETY AND WAS EFFECTIVE. PT WORKED WITH THERAPY TODAY WAS ABLA TO AMBULATE IN THE HALLWAY BACK TO HIS ROOM, CIWA AT 4, SHOWS NO OTHER SYMPTOMS OF WITHDRAWAL, PT HAS BEEN ALERT, COOPERATIVE THIS SHIFT, ABLE TO MAKE NEEDS KNOWN. PT TO POSSIBLY DISCHARGE TO SNF TOMORROW. DR GROVER WROTE PRESCRIPTION FOR MORPHINE 15MG WHEN PT TRANSFERRED TO SNF AND TO TRANSITION TO SUBUTEX AFTER. PT REMAINED IN BED FOR THE REST OF THE SHIFT, RAIL PADDINGS IN PLACE BED IN LOWEST POSITION. CALL LIGHTS IN REACH YANETH REPORT TO ONCOMING SHIFT
--- NOTE | 2020-02-03 05:38 | NUR ---
SHIFT SUMMARY NO ACUTE CHANGES THIS SHIFT. PT A&OX4. USES CALL LIGHT APPROPRIATELY. VSS. SP02>92% ON RA. PT DENIES SOB. PT MEDICAL STATUS, NO TELEMETRY. PT C/O OF MODERATE L SIATIC PAIN. Q2H REPOSITIONING. PT STATED AMBULATING WITH PT DURING DAY SHIFT "HELPED" HIS SIATIC PAIN. PT USED URINAL AT BEDSIDE W/ ASSISTANCE. ALSO HAD SOME INCONTINENT VOIDS. C/D ATTENDS IN PLACE. NO BM. PT ATE PUDDING AT BEGINNING OF SHIFT WITH MINIMAL ASSISTANCE. CIWA SCORES HAVE BEEN 0-1 THIS SHIFT. PT SLEPT T/O THE NIGHT. CALL LIGHT IN REACH. WILL CONTINUE TO MONITOR.
--- NOTE | 2020-02-03 09:51 | NUR ---
ASSUMED CARE FROM NOC RN. PT WAS RESTING AT THE TIME OF REPORT. PT WAS ASSESED, STABLE VS AND BREATHING, CIWA SCORE 2. PT REPORTED MODERATE ANXIETY AND WAS GIVEN ATIVAN FOR THAT. PT WORKED WITH OT THIS MORNING AND IS NOW UP IN THE CHAIR; THE WALKER AND GAIT BELT WAS USED. PT IS CURRENTLY WAITING ON SNF PLACEMENT.
--- NOTE | 2020-02-03 12:19 | NUR ---
PT IS FEELING ANXIOUS ABOUT DISCHARGE, HE IS WORRIED ABOUT HAVING A PLACE TO GO. PT STATED "HIS 2ND COMMITTED SUICIDE SEVERAL WEEKS AGO AND IT SENT HIM INTO A TAILSPIN." PT HAS BEEN ANXIOUS IN GENERAL. HE WAS GIVEN ATIVAN 2MG WHICH SEEMS TO TAKE THE EDGE OFF, VERBALIZED BY THE PT
--- NOTE | 2020-02-03 16:16 | NUR ---
PCU SUMMARY PT WAS CHANGED TO MEDICAL STATUS NO TELE SEVERAL DAYS AGO BUT HAS BEEN WAITING ON A MEDICAL UNIT BED. I HAVE GIVEN REPORT TO JOHN CUADRA RN ON THE MEDICAL UNIT SO THAT SHE CAN ASSUME CARE. TODAY THE PT HAS WORKED WITH OT AND PT, HE HAS MOVED TO THE CHAIR AND SPENT TIME SITTING UP THIS MORNING. WITH VARIOUS TOOLS, SUCH LARGE REGISTERED RADIOLOGIC TECHNOLOGIST SILVERWARE, A WRIST WEIGHT AND TABLE REGISTERED RADIOLOGIC TECHNOLOGIST THE PT HAS BEEN ABLE TO FEED HIMSELF INDEPENDENTLY. PT HAD SOME ANXIETY THIS MORNING BUT HAS NOT REPORTED ANY THIS AFTERNOON. A NEW IV WAS STARTED ON THE RIGHT FOREARM AND THE LEFT WRIST IV WAS DC'D IT HAD BEEN IN FOR APPROX. 4 DAYS. VS STABLE, PT WILL BE MOVED TO MEDICAL FLOOR VIA BED
--- NOTE | 2020-02-03 16:54 | NUR ---
RECEIVED TO RM Alina FROM [facility] BY W/C. HE IS PLEASANT. HE HAS AGREED TO STAY SITTING UP FOR DINNER. HE USES SPECIAL UTENSILS SO HE CAN FEED HIMSELF. CALL LIGHT IN REACH.
--- NOTE | 2020-02-03 17:51 | NUR ---
HE IS SITTING UP IN THE CHAIR FEEDING HIMSELF HIS DINNER WITH HIS SPECIAL UTENSIL STRAINER TENDER AND A WEIGHT ON HIS RT WRIST. NO COMPLAINTS.
--- NOTE | 2020-02-04 06:52 | NUR ---
SHIFT SUMMARY PT IS A 54 Y/O MALE, ADMITTED FOR ETOH WITHDRAWAL. HE IS A&O X 3, WITH A HX OF PARKINSONS AND BASELINE TREMORS. 1-2PA BETWEEN BED AND CHAIR. NO C/O ACUTE PAIN, NAUSEA OR SOB. VITAL SIGNS STABLE. PT SLEPT WELL THROUGH THE NIGHT. NO OTHER ACUTE CHANGES IN PT CONDITION NOTED. WILL CONTINUE TO MONITOR AND TREAT PER EMAR UNTIL HAND OFF TO DAY SHIFT RN.
--- NOTE | 2020-02-04 15:50 | NUR ---
HE HAS BEEN UP IN THE RECLINER SINCE JUST AFTER BREAKFAST. HE CAN SCOOT HIMSELF BACK APPROPRIATELY AFTER INCHING FORWARD GRADUALLY D/T HIS SEVERE TREMORS. HE IS VERY PLEASANT. HE SWALLOWS PILLS WITH WATER OR PEPSI WITHOUT PROBLEM. HE CONTINUES TO USE SPECIAL UTENSILS TO FEED HIMSELF. OT WAS JUST WORKING WITH HIM. HE HAS RECEIVED MSIR X2 FOR HIS CHRONIC PAIN.
--- NOTE | 2020-02-04 18:00 | NUR ---
HE WORKED WELL WITH PT/OT TODAY. HE RECEIVED MSIR TWICE AND ATIVAN ONCE. HE IS ALWAYS CHEERFUL.
--- NOTE | 2020-02-05 04:35 | NUR ---
TRANSITIONAL NURSE SUMMARY PT A/O X4. PLEASANT AND COOPERATIVE. SEVERE TREMORS IN UPPER EXTREMITIES DUE TO PARKINSON'S WITH SHUFFLE GAIT. AMBULATED WITH 1-2 ASSIST W/ GAITBELT AND FWW. CALLS APPROPIRATELY. MEDICATED FOR CHRONIC PAIN. SLEPT WELL TONIGHT. NO ACUTE CHANGES.
--- NOTE | 2020-02-05 16:48 | NUR ---
PT EXPERIENCING INCREASE TREMMORS AND ANXIETY. PT REQUESTED PRN ADIVAN. ORDER WAS CHANGED EARLIER IN THE DAY FOR MEDICAITON TO BE GIVEN Q12 INSTEAD OF Q8. TALKED WITH DR. SINGH ON PHONE AND WAS GIVEN OKAY FOR PT TO RECEIVE HIS ADIVAN EARLY THIS ONE TIME. PT MEDICATED AND RESTING IN ROOM WITH LIGHTS OFF.
--- NOTE | 2020-02-05 16:53 | NUR ---
SHIFT SUMMARY PT IS A&OX4. PT HAS BEEN PLEASANT ALL SHIFT. PT HAS EXPERIENCED PAIN IN BACK OF HEAD, BACK AND LEGS. PT MEDICATED PER EMAR, OFFERED REPOSITIONING AND SHOWERED WHICH SEEMED TO HELP. TREMORS BECAME MORE PRONOUNCED TOWARDS END OF SHIFT. PT REQUESTED ADIVAN FOR ANXIETY AND TREMORS PT MEDICATED WITH APPROVAL FROM DR. SINGH. PT WORKED WITH P.T. AND WALKED THE BLOOD. PT IN CHAIR FOR LUNCH. PT CURENTLY RESTING IN ROOM WAITING FOR DINNER. BED ALARM ON WITH CALL LIGHT W/IN REACH.
--- NOTE | 2020-02-06 05:52 | NUR ---
FITNESS CONSULTANT SUMMARY PT A/O X4. PLEASANT AND SLEPT WELL TONIGHT. MEDICATED FOR CHRONIC PAIN ONCE OVERNIGHT. VSS. CALLS APPROPRITATELY. NO ACUTE CHANGES. CALL LIGHT WITHIN REACH.
--- NOTE | 2020-02-06 17:55 | NUR ---
SHIFT SUMMARY. A&OX4, ONE ASSIST WITH FWW TO BSC, PT USES URINAL AT BEDSIDE WITH ASSISTANCE SECONDARY TO TREMORS. PT IS PLEASANAT AND COOPERATIVE WITH CARE. PT WITH CHRONIC BACK/NECK AND L LEG PAIN MANAGED WELL WITH CURRENT ORDERS. PT DENIES N/V, SOB. GOOD PO INTAKE. NO NEW CHANGES OR CONCERNS.
--- NOTE | 2020-02-07 04:32 | NUR ---
KEY WORKER SUMMARY NO ACUTE CHANGES THIS SHIFT. PT AAOX3, PLEASANT AND ABLE TO MAKE NEEDS KNOWN. MEDICATED WITH PO ATIVAN, PT STATES IT HELPS HIM SLEEP AND REDUCES HIS TREMORS A BIT. PT ALSO MEDICATED WITH PRN MORPHINE FOR CHRONIC PAIN IN HIS LOWER BACK AND L LEG. PT DENIES SOB, N/V. PT HAS RESTED MOST OF THE NIGHT. VSS, WILL CONTINUE TO MONITOR.
--- NOTE | 2020-02-07 11:00 | NUR ---
PT UNCONTROLED SHAKING PT THIS AM VERY SPASTIC, REPORTS HAVING A VERY HARD TIME CONTROLING HIS ARMS, ASK FOR ATIVAN, A CALL WAS MADE TO DR. LENORE FLORES ATIVAL X1 ORDERED NOW AND GIVEN TO THE PT
[2020-02-07] MEDS ORDERED: BUPRENORPHINE HC2 MG SL (15:53)
[2020-02-07] MEDS ORDERED: MIRALAX17 GM PO (15:54)
[2020-02-07] MEDS ORDERED: NARCAN4 M1 (15:55)
--- NOTE | 2020-02-07 18:50 | NUR ---
PT IS A/OX3, PLEASANT AND COOPERATIVE, THE PT APPEARS TO BE BREATHING EASILY ON RA AT THIS TIME, THE PT TYODAY C/O MOSTLY UNCONTROLABLE MUSCLE SPASM, AND REPORTED HAVING A ROUGH DAY BECAUSE OF IT, THE PT WAS UP IN THE CAHIR FOR BREAKFAST THEN BACK TO BED, THE PT WAS ABLE TO KNAP THIS AFTERNOON BEFIRE DINNER, CALL LIGHT IN REACH, NO OTHER CHANGES NOTICED THIS SHIFT
--- NOTE | 2020-02-08 05:10 | NUR ---
TARIFF COMPILING CLERK SUMMARY PT AAOX4 AND PLEASANT. CALLS APPROPRIATELY FOR ASSISTANCE. MEDICATED WITH TYLENOL FOR PAIN X1 PO MORPHINE HAD BEEN DC'D ON DAY SHIFT. PT STATED HE IS SUPPOSED TO BE SWITCHED TO BUPRENORPHINE LATER TODAY FOR PAIN MANAGEMENT. MEDICATED WITH IV ATIVAN X1 AND PO ATIVAN X1 FOR INCREASED TREMORS R/T PARKINSON'S. AT TIMES PARKINSONS TREMORS ARE VERY INTENSE. VSS, WILL CONTINUE TO MONITOR.
[2020-02-08 06:02] LABS: BASOPHILS ABSOLUTE AUTO 0.11 K/mm3 (0.00-0.23); BASOPHILS PERCENT AUTO 2 % (0-2); EOSINOPHILS ABSOLUTE AUTO 0.36 K/mm3 (0.00-0.68); EOSINOPHILS PERCENT AUTO 5 % (0-6); Hematocrit 45.8 % (37.0-53.0); Hemoglobin 14.7 g/dL (13.5-17.5); IMMATURE GRAN ABSOLUTE AUTO 0.01 K/mm3 (0.00-0.10); IMMATURE GRAN PERCENT AUTO 0 % (0-1); LYMPHOCYTES PERCENT AUTO 28 % (21-46); MONOCYTES ABSOLUTE AUTO 0.65 K/mm3 (0.16-1.47); MONOCYTES PERCENT AUTO 9 % (4-13); Mean Corpuscular HGB 29.2 pg (26.0-34.0); Mean Corpuscular HGB Conc 32.1 g/dL (31.5-36.5); Mean Corpuscular Volume 91 fL (80-100); Mean Platelet Volume 9.9 fL (9.1-12.4); NEUTROPHILS ABSOLUTE AUTO 4.02 K/mm3 (1.96-9.15); NEUTROPHILS PERCENT AUTO 56 % (41-73); Platelet Count 258 K/mm3 (150-400); RDW Coefficient Variation 11.7 % (11.7-14.2); RDW Standard Deviation 39.1 fL (35.1-46.3); Red Blood Cell Count 5.04 M/mm3 (4.30-5.90); White Blood Cell Count 7.15 K/mm3 (4.00-11.30)
[2020-02-08 06:18] LABS: Alanine Aminotransfer (ALT/SGP 27 U/L (12-78); Albumin, Blood 3.7 g/dL (3.4-5.0); Albumin/Globulin Ratio 0.9 (0.8-1.8); Alk Phos 97 U/L (50-136); Anion Gap 3 mmol/L (6-16); Aspartate Aminotrans (AST/SGOT 44 U/L (12-37); Bilirubin, Total 0.5 mg/dL (0.1-1.0); Blood Urea Nitrogen 14 mg/dL (8-24); Bun/Creatinine Ratio 19.6 (12.0-20.0); CO2, Blood 29 mmol/L (21-32); Calcium, Blood 9.8 mg/dL (8.5-10.1); Chloride, Blood 108 mmol/L (98-108); Creatinine, Blood 0.71 mg/dL (0.60-1.20); Globulin, Blood 3.9 g/dL (2.2-4.0); Glomerular Filtration Rate >60 (60-); Glucose, Blood 90 mg/dL (70-99); Potassium, Blood 4.6 mmol/L (3.5-5.5); Sodium, Blood 140 mmol/L (136-145); Total Protein, Blood 7.6 g/dL (6.4-8.2)
--- NOTE | 2020-02-08 17:49 | NUR ---
PT IS A/OX3, PLEASANT AND COOPERATIVE, THE PT APPEARS TO BE BREATHING EASILY RA, THE PT WAS STARTED ON SUBTEX BY DR. GROVER TODAY THE DOSAGE WAS TITRATED UP T/O THE DAY TO 16MG, SO FAR AT THIS TIME THE DOSE SEEMS TO BE WORKING FOR THE PT, THE PT IS UP WITH ASSIST TO THE BSC AND HAS 2 HARD FORMED BM'S, THE PT IS UNSTEADY AND ROBERTKY IS A 1-2 PERSON ASSIST UP, CALL LIGHT IN REACH, WILL CONTINUE TO MONITOR AND ASSESS FOR CHANGES
--- NOTE | 2020-02-08 21:51 | NUR ---
MEAGAN (RAILWAY STATION MANAGER) ALERTED THAT ATIVAN IV X1 PREVIOUSLY GIVEN WAS INEFFECTIVE AT CALMING PT AND SUPPRESSING SEVERE PARKINSONIAN TREMOR. ORAL SCHEDULED ATIVAN NOT AVAILABLE UNTIL AFTER MIDNIGHT. MEAGAN RX'D ADDITIONAL DOSE OF ATIVAN 1MG IV NOW. WILL ADMINISTER AND EVALUATE EFFECT.
--- NOTE | 2020-02-09 03:50 | NUR ---
SUMMARY: PT A/OX4, CALLS APPROPRIATELY AND IS PLEASANT/COOPERATIVE W/CARE. HE REQUIRES ASSISTANCE W/ADL'S D/T SEVERE PARKINSONIAN TREMOR BUT HE PREFERS TO BE INDEPENDENT POSSIBLE. PT FEEDS/DRINKS BY SELF BUT UTILIZES URINAL ASSIST. TREMOR CAUSES ANXIETY AND DIFFICULTY SLEEPING AT TIMES SO ADDITIONAL DOSE OF IV ATIVAN X1 WAS RX'D AND RECIEVED PER PT REQUEST. IT HELPED CALM TREMOR BUT Q12H ORAL ATIVAN PRN WAS STILL REQUIRED D/T TREMOR NEVER GOING AWAY ENTIRELY. HE REPORTS HIS CHRONIC ASSOCIATED PAIN IS SLIGHTLY BETTER W/THE ADDITION OF BUPRENORPHINE ON DAY SHIFT. PT WASN'T OOB THIS SHIFT BUT SAT AT EOB AND REPOSITIONED SELF AD TG. BED ALARM ON FOR FALL RISK. NO ACUTE CHANGES, VSS AND AFEBRILE. WCTM AND REPORT TO DAY RN.
--- NOTE | 2020-02-09 17:40 | NUR ---
SHIFT SUMMARY THE PT HAS BEEN PLEASANT AND COOPERATIVE THIS SHIFT. PT'S DOSE OF BUPRENORPHINE WAS INCREASED WHICH BROUGHT THE PT MUCH RELIEF. THE PT WORKED WITH PT TODAY AND REPORTED THAT HE FELT WEAKER TODAY. PT'S IV WAS LEAKING AND DR. ARDON ORDERED A NO IV ACCESS NEEDED. THE PT HAD C/O CONSTIPATION HOWEVER HAD TWO LARGE BM'S TODAY. PT IS RESTING IN BED W CALL LIGHT WITHIN REACH, WCTM.
--- NOTE | 2020-02-09 21:25 | NUR ---
1950 PT ALERT AND ORIENTED X 3, ABLE TO FOLLOW SIMPLE VERBAL COMMANDS; BILATERAL UPPER ARM TREMORS NOTED WITH PATIENT REQUIRING ASSISTANCE WITH TAKING H.S. MEDS AND DRINKING WATER VIA GLASS BY THIS NURSE. 2100 VOIDED 300ML VIA URINAL WITH ASSISTANCE BY THIS NURSE.
--- NOTE | 2020-02-10 04:16 | NUR ---
SHIFT SUMMARY: 55 Y/O SLENDER MALE RESTED COMFORTABLY ALL SHIFT; DENIES PAIN OR NAUSEA; ALERT AND ORIENTED X 4; PT HAS GROSS TREMORS TO BILATERAL UPPER ARMS NOTED; PT REQUIRES ASSISTANCE WITH ALL ADLS/IADLS TO INCLUDE HOLDING URINAL AND GLASS OF WATER PT HAS DIFFICULTY WITH THESE TASKS AT TIMES; BED ALARM APPLIED FOR SAFETY; BED LOW POSITION WITH CALL LIGHT AT SIDE.
--- NOTE | 2020-02-10 20:17 | NUR ---
SHIFT SUMMARY: NO ACUTE EVENTS. C/O PAIN WITH MUSCLE SPASMS; MEDICATED PER EMAR. USING URINAL WITH ASSISTANCE. TRANSFERRED FROM BED TO CHAIR WITH ASSISTANCE. WAS IN GOOD SPIRITS, IS LOOKING FORWARD TO D/C.
--- NOTE | 2020-02-11 05:13 | NUR ---
SHIFT SUMMARY LYING IN SEMI FOWLERS WITH EYES OPEN. HAS RESTED WELL THIS SHIFT. MEDICATED WITH SCHEDULED PAIN MEDS AND PRN ATIVAN PER MD ORDERS WHEN AVAILABLE. CONTINUES TO HAVE SEVERE TREMOR. ASSISTED EVERAL TIMES WITH URINAL. OUTPUT DOCUMENTED. DENIES PAIN, DISCOMFORT, OR FURTHER NEEDS AT THIS TIME. SAFETY MEASURES IN PLACE. WILL CONTINUE TO MONITOR AND GIVE HAND OFF TO ONCOMING SHIFT USING SBAR.
--- NOTE | 2020-02-11 18:18 | NUR ---
SHIFT SUMMARY PATIENT IS ALERT AND ORIENTED. DENIES ANY CONCERNS AT THIS TIME. HE HAS MAJOR BASELINE TREMORS. HE HAS PARKINSONS EARLY ONSET. AWAITING PLACEMENT.
--- NOTE | 2020-02-12 04:59 | NUR ---
SHIFT SUMMARY ASSUMED CARE OF PT AT 1900. PT IS A/OX4. PT HAS TREMORS T/O BODY. HEART SOUNDS REUGLAR, LUNG SOUNDS CLEAR. PT REQUESTS ATIVAN TO HELP WITH TREMORS. PT WAS CONTINENT T/O THE NIGHT. NO ACUTE EVENTS DURING THE NIGHT. PT SLEPT T/O THE NIGHT. CALL LIGHT IN REACH, BED IN LOWEST POSTION.
--- NOTE | 2020-02-12 18:18 | NUR ---
SHIFT SUMMARY PATIENT PLACED ON ADDERALL TODAY FOR HIS TREMORS. PATIENT STATES A LONG HISTORY OF ADHD. HE HAS BEEN ON VYVANSE IN THE PAST BUT WE ARE AWAITING PRIOR AUTHORIZATION FOR A PHARMACY TO DELIVER THAT MEDICATION TO THE HOSPITAL. PATIENT IS PLEASANT AND MUCH CALMER. HE STATES THIS IS THE BEST HE HAS FELT IN WEEKS. NO ACUTE CONCERNS AT THIS TIME.
--- NOTE | 2020-02-13 04:22 | NUR ---
SHIFT SUMMARY ASSUMED CARE OF PT AT 1900. PT IS A/OX4. HEART SOUNDS REGULAR, LUNG SOUNDS CLEAR. PT WAS CONTINENT T/O THE NIGHT. PT HAS TREMORS T/O BODY BUT STATES THAT HE LIKES HIS NEW MEDICATION REGEME. NO ACUTE EVENTS DURING THE NIGHT. PT SLEPT T/O THE NIGHT. CALL LIGHT IN REACH, BED IN LOWEST POSTION.
[2020-02-13 10:05] LABS: BASOPHILS ABSOLUTE AUTO 0.12 K/mm3 (0.00-0.23); BASOPHILS PERCENT AUTO 2 % (0-2); EOSINOPHILS ABSOLUTE AUTO 0.16 K/mm3 (0.00-0.68); EOSINOPHILS PERCENT AUTO 2 % (0-6); Hematocrit 44.2 % (37.0-53.0); Hemoglobin 14.6 g/dL (13.5-17.5); IMMATURE GRAN ABSOLUTE AUTO 0.02 K/mm3 (0.00-0.10); IMMATURE GRAN PERCENT AUTO 0 % (0-1); LYMPHOCYTES ABSOLUTE AUTO 1.59 K/mm3 (0.84-5.20); LYMPHOCYTES PERCENT AUTO 21 % (21-46); MONOCYTES ABSOLUTE AUTO 0.67 K/mm3 (0.16-1.47); MONOCYTES PERCENT AUTO 9 % (4-13); Mean Corpuscular Volume 91 fL (80-100); Mean Platelet Volume 9.5 fL (9.1-12.4); NEUTROPHILS ABSOLUTE AUTO 5.06 K/mm3 (1.96-9.15); NEUTROPHILS PERCENT AUTO 66 % (41-73); Platelet Count 297 K/mm3 (150-400); RDW Coefficient Variation 11.9 % (11.7-14.2); RDW Standard Deviation 39.7 fL (35.1-46.3); Red Blood Cell Count 4.86 M/mm3 (4.30-5.90); White Blood Cell Count 7.62 K/mm3 (4.00-11.30)
[2020-02-13 10:13] LABS: Anion Gap 8 mmol/L (6-16); Blood Urea Nitrogen 14 mg/dL (8-24); Bun/Creatinine Ratio 20.4 (12.0-20.0); CO2, Blood 25 mmol/L (21-32); Calcium, Blood 9.3 mg/dL (8.5-10.1); Chloride, Blood 106 mmol/L (98-108); Creatinine, Blood 0.69 mg/dL (0.60-1.20); Glomerular Filtration Rate >60 (60-); Glucose, Blood 60 mg/dL (70-99); Potassium, Blood 4.1 mmol/L (3.5-5.5); Sodium, Blood 139 mmol/L (136-145)
--- NOTE | 2020-02-13 17:18 | NUR ---
SHIFT SUMMARY PATIENT IS PLEASANT. ALERT AND ORIENTED. HIS PAIN IS [id number] AND HIS TREMORS LOOK MUCH BETTER TODAY. NO ACUTE CONCERNS PER PATIENT BUT AWAITING AUTHORIZATION OF HIS VYVANSE. HE IS STARTING TO FEEL BETTER AND STATES HE FEELS LIKE HE HAS A CLEAR HEAD.
--- NOTE | 2020-02-14 04:09 | NUR ---
SHIFT SUMMARY ASSUMED CARE OF PT AT 1900. PT IS A/OX4. PT DENIES ANY NEW SYMPTOMS. PT STATES THAT HIS TREMORS ARE GETTING BETTER AND HE IS EXCITED ABOUT GETTING APPROVED FOR HIS MEDICATION TODAY. NO ACUTE EVENTS, PT SLEPT T/O THE NIGHT. CALL LIGHT IN REACH, BED IN LOWEST POSTION.
--- NOTE | 2020-02-14 14:22 | NUR ---
HOSSEIN PRE-AUTHORIZATION. AWAITING PRE-AUTH. SEBAS ZAVALA, CONFIRMS THAT MEDICATION IS AVAILABLE AT [facility], AND THAT OBTAINING THE MED AND PRE-AUTH IS STILL IN PROCESS.
--- NOTE | 2020-02-15 04:17 | NUR ---
DOUBLE CUT OFF SAW OPERATOR SUMMARY A/OX4, APPEARED TO SLEEP T/O THE NIGHT. DENIES PAIN OR SOB. VSS. NO ACUTE CHANGES AT THIS TIME. BED IN LOWEST POSITION WITH CALL LIGHT IN REACH. WILL CONTINUE TO MONITOR AND REPORT TO ONCOMING RN.
--- NOTE | 2020-02-15 11:19 | NUR ---
PT ALERT AND ORIENTED. 1PA TO THE CHAIR AND TO USE THE URINAL. PT HAS ESSENTIAL TREMMORS AT ALL TIMES. PT CALLS APPROPRIATELY, OCCASSIONALLY NEEDS ASSISTANCE GETTING PILLS INTO HIS MOUTH WITHOUT SPILLING. PT HAS BED ALARM FOR SAFETY.
--- NOTE | 2020-02-15 16:38 | NUR ---
Patient is sitting on a chair and alert. Patient immediately shares about his life, his addictions, his disease, his family unit complications and the suicide of his 7mos ago. Patient talks about his 7th Day [employer] misty and the hit his Parkinson's diagnosis took on that misty. Patient talks about the struggle he has in finding a SNF that will take him due to his addiction and how he plans to turn it all around. I reinforce helpful attitudes and practices, hear confession and provide therapeutic listening, grief support, pastoral counselor/art therapist and prayer. Patient responds well and and shows signs of restored misty. I will continue to assist patient through the family unit issues and the issues surrounding his addiction and disease.
--- NOTE | 2020-02-15 17:49 | NUR ---
SHIFT SUMMARY- PT ALERT AND ORIENTED X4. PT HAS BEEN PLEASENT AND HAD NO ACUTE CHANGE T/O THE SHIFT. PT IS COOPERATIVE WITH CARE AND IS VERY WILLING TO WORK WITH THERAPIES. PT HAD A SHOWER TODAY AFTER PT/OT EVALS HE WAS A BIT WEAK ON THE WALK BACK TO HIS RECLINER, A SECOND PERSON WAS NEEDED FOR SBA FOR SAFETY. PT IS CURRENTLY AWAITING PLACEMENT. PT RECIEVED A BROWN COW THIS EVENING HE HAS HAD NO BM FOR 2 DAYS. PT IS RECIEVING MIRALAX TID SCHEDULED WELL. PT HAS DENIED THE NEED FOR PAIN MEDICATION T/O THE SHIFT. PT CAN TAKE HIS MEDS WHOLE WITH WATER; HOWEVER THE MORING MEDS HE LIKES INTO THREE CUPS SL, LARGE AND SMALL PILLS. PT REQUESTED TO BE SEEN BY PASTORAL CARE AND DALILA FROM PASTORAL CARE CAME TO SEE HIM THIS AFTERNOON. PT HAS BEEN PLEASENT AND COOPERATIVE T/O THE DAY. WILL PASS ON TO NIGHT RN IN BEDSIDE REPORT.
--- NOTE | 2020-02-16 05:46 | NUR ---
SHIFT SUMMARY PT PLEASANT AND COOPERATIVE. SLEPT WELL THIS EVENING. CONTINUES TO HAVE TREMORS R/T PARKINSONS. DID WELL HOLDING PILL CUP AND SODA CAN INDEPENDENTLY EVEN WITH TREMORS. PT REQUESTING ENEMA AT START OF SHIFT. NEW ORDER OBTAINED. SCHEDULED BOWEL CARE GIVEN WITH NO RESULTS YET. WILL WAIT FOR PT TO BE MORE AWAKE TO ADMINISTER ENEMA. PT REPORTS THAT HIS LAST CHARTED BM WAS ONLY A SMALL, HARD "PEBBLE" AND THAT HE REALLY HASN'T HAD A BM FOR 4 DAYS. VITAL SIGNS STABLE. NO ACUTE CHANGES THIS SHIFT. WILL CONTINUE TO MONITOR AND REPORT TO DAY RN.
--- NOTE | 2020-02-16 11:28 | NUR ---
PT REQUESTED AN ENEMA STATING THE LAST BM HE HAD WAS HARD AND DIFFICULT TO PASS AND SMALL. GAVE THE PT AN ENEMA WHICH HE COULD ONLY HOLD FOR 15 MINUTES BEFORE FEELING THE URGE TO GO. HE IS CURRENTLY ON THE COMODE TRYING TO HAVE A BM. PT FELT HURRIED TO GO BUT IS STRAINING ALOT WITH THIS STOOL. PT STATES THIS IS NORMAL FOR HIM TO WORK THIS HARD FOR STOOL.
--- NOTE | 2020-02-16 15:31 | NUR ---
PT CONVEYED CONCERN THAT HE HAS A [employer] CARD FOR HIS SSI PAYMENTS. PT STATED THAT HE KNOWS HOW TO CALL AND CANCEL THE CURRENT CARD AND REQUEST A NEW ONE, HE IS NOT CERTAIN HE WILL BE ABLE TO GET IT BACK. RECIEVED A CALL FROM [employer] WHO STATED THEY ARE CONTACTING [employer] AND WILL CONTACT [employer]ON FOR THE PT TO TRY TO FIGURE THIS OUT.
--- NOTE | 2020-02-16 16:11 | NUR ---
[employer] CALLED BACK WITH A NUMBER THAT WAS FOR THE [employer]. PT WAS ABLE TO CALL AND CANCEL HIS CARD. HE IS CURRENTLY TRYING TO DETERMINE WHERE TO SEND HIS NEW CARD TO. THIS HELPED TO REDUCE HIS ANXIETY QUITE A BIT.
--- NOTE | 2020-02-16 17:18 | NUR ---
SHIFT SUMMARY- PT ALERT AND ORIENTED X4. PT HAS EVALUATIONS FOR POTENTIAL [facility] FACILITIES TOMORROW FOR POTENTIAL PLACEMENT. PT WAS ANXIOUS ABOUT THIS WELL HIS DEBIT CARD (SEE PREVIOUS NOTES FOR DETAILS) WELL HIS PRIOR AUTHORIZATION FOR THE VIVANCE. PT WAS ABLE TO CANCEL HIS DEBIT CARD, CALLED CARE MANAGEMENT WAS CONTACTED TO DETERMINE IF THE PRIOR AUTHORIZATION HAS BEEN COMPLETED, SHEOULD GET A CALL BACK TOMORROW. PT IS CURRENTLY SITTING IN THE RECLINER HIS TREMMORS WERE SO BAD STAFF WERE UNABLE TO OBTAIN A BLOOD PRESSURE EARLIER. WILL ATTEMPT IN A LITTLE WHILE THE PT IS CALMER NOW. THE TREMMORS SEEM TO BE A BIT BETTER. PT HAD AN ENEMA THIS MORNING AND HAD A LARGE BM A RESULT. WILL PASS ALL ON IN REPORT TO NIGHT RN.
--- NOTE | 2020-02-17 04:58 | NUR ---
SHIFT SUMMARY PT ANXIOUS ABOUT NEW DISCUSSIONS FOR D/C TO [facility]. PT STATES THAT HE WOULD PREFER TO GO TO REHAB AND ATTEMPT TO GET HIS STRENGTH BACK SO HE CAN MAINTAIN HIS INDEPENDENCE. ENCOURAGED HIM TO SPEAK WITH CARE MANAGEMENT ABOUT HIS OPTIONS. PT CONTINUES TO HAVE BASELINE PARKINSONS TREMORS. HAD ONE SMALL BM THIS EVENING HOWEVER PT HAD LARGE BM ON DAY SHIFT AND REPORTS FEELING MUCH BETTER. PT INCONTINENT X 1 THIS SHIFT REQUIRING A FULL BED CHANGE. VITAL SIGNS STABLE. NO ACUTE EVENTS THIS EVENING. WILL CONTINUE TO MONITOR AND REPORT TO DAY RN.
--- NOTE | 2020-02-17 08:57 | NUR ---
DR BURGOS CAME TO SEE THE PT- SPOKE TO HIM ABOUT THE VIVANCE PRIOR AUTHORIZATION. CALLED [facility] THE PHARMACY SAID THE PRIOR AUTHORIZATION HAS NOT YET BEEN ACCEPTED OR DECLINED. PER THE PHARMACY THIS COULD MEAN THEY ARE WAITING FOR THE INSURANCE COMPANY OR THE FORMS FROM THE DR OFFICE. ASKED DR BURGOS ABOUT IT HE WILL LOOK INTO IT. ALSO LEFT A MESSAGE FOR THE SUPPORT SERVICES COORDINATOR ABOUT THE SAME. PT SEEMS TO BE IN BETTER SPIRITS THIS MORNING. PT SHOULD BE EVALUATED BY AN ADULT F[facility] HOME LATER TODAY; HOWEVER HE CONVEYED TO DR BURGOS THAT HE WOULD LIKE TO GO TO SNF SO THAT HE CAN POSSIBLY GO BACK TO LIVING ON HIS OWN. PT IS UNABLE TO HOLD HIS OWN URINAL D/T SEVERE PARKINSONS TREMMORS, PT CAN NOT WALK SAFELY WITHOUT ASSISTANCE. NOT SURE THAT LIVING ALONE IS A SAFE SITUATION FOR THE PT. DR MCKEON.
--- NOTE | 2020-02-17 17:18 | NUR ---
SHIFT SUMMARY- PT ALERT AND ORIENTED. PT RECIEVED A PHONE CALL FROM A FOSTER FACILITY WHILE HE WAS IN THE SHOWER THEY WERE ASKED TO CALL BACK IN 10 MINUTES AND GIVEN THE DIRECT ROOM PHONE NUMBER. NO OTHER CALLS CAME IN. PT DID NOT HAVE ANY VISITORS TODAY. PT HAS BEEN CONCERNED ABOUT THE PRIOR AUTHORIZATION FOR HIS VIVANCE. NO INFORMATION HAS BEEN RECIEVED ON THIS. PLACED ANOTHER CALL TO LEAD GENERATOR AND LEFT A MESSAGE THIS EVENING. WILL PASS ON TO NIGHT RN IN REPORT. PT CURRENTLY IS SLEEPING SOUNDLY AND IS SO RELAXED THAT HIS ARMS ARE BARELY SHAKING AT ALL. STAFF ARE PLANNING TO HOLD HIS DINNER TRAY FOR A BIT TO ALLOW THE PT TO GET MUCH RELAXED REST HE CAN. PT HAS SEEMED FAR MORE EXHAUSTED TODAY WHEN COMPARED TO THE LAST 2 DAYS. PT HAS CONSUMED 100% OF BREAKFAST AND LUNCH TODAY, HE HAS HAD A GOOD APPETITE FOR THE PAST THREE DAYS. WILL CTM AND PASS ON TO NIGHT RN IN REPORT.
--- NOTE | 2020-02-17 21:31 | NUR ---
PATIENT IS CALM AND COOPERATIVE WITH CARE, PLEASANT. HE IS ALERT AND ORIENTED X5. NO COMPLAINTS OF PAIN. ASKS TO BE REPOSITIONED. HE HAS TREMORS IN HIS UPPER EXTREMITIES. ABLE TO TAKE PILLS WITHOUT ISSUE. UP TO BSC WITH ONE PERSON ASSIST AND FWW. CALL LIGHT IN REACH.
--- NOTE | 2020-02-18 05:28 | NUR ---
PATIENT HAS BEEN ABLE TO SLEEP THROUGH THE NIGHT. HE IS CONTINENT OF URINE AND REQUIRES HELP WITH HOLDING THE URINAL. NO ACUTE CHANGES. CALL LIGHT IN PLACE.
--- NOTE | 2020-02-18 17:24 | NUR ---
SHIFT SUMAMRY: NO ACUTE CHANGES TO REPORT THIS SHIFT. PT A&O; CALM AND COOPERATIVE WITH CARE. BUE TREMORS; PT REQUIRES ASSISTANCE WITH FEEDING & TOILETING. NO C/O PAIN THIS SHIFT. PATIENT UP WITH 1-ASSIST. PT/OT FOLLOWING. AWAITING PLACEMENT. WCTM.
--- NOTE | 2020-02-18 21:34 | NUR ---
ASSUMED CARE. AOX4, COOPERATIVE. STATES PAIN 7-10/03. ON SCHEDULED PAIN MEDS. NUMBNESS BLE NOTHING OUT OF HIS NORM. TREMORS BUE. NECK STIFF WITH DECREASE IN ROM ALSO HIS NORM. SKIN PWD, TOES NAILS CURLED. OVER ALL ASSESSMENT IS BENIGN. ADMINISTERED MEDS, ABLE TO SWALLOW WITH NO DIFFICULTY. PLACED WEIGHT ON RIGHT WRIST. HE WAS ABLE TO EAT TWO PUDDINGS. GOT HIM CLEANED UP AND READY FOR BED. USED URINAL, VOIDED 500CC CLEAR YELLOW. REPOSITIONED DOWN IN BED. CALL LIGHT GIVEN.
--- NOTE | 2020-02-19 05:06 | NUR ---
SHIFT SUMMARY: AOX3, COOPERATIVE. VS WNL, AFEBRILE. STAYED UP FOR SHORT PERIOD OF TIME, HAD SNACK THEN LAID DOWN FOR THE NIGHT. SLEPT WELL. USED CALL LIGHT APPROPRIATLY. DENIED ANY COMPLAINTS. DOING WELL ON SCHEDULED PAIN MEDICATION. IS AWAITING PLACEMENT. CALL LIGHT REMAINS IN REACH.
[2020-02-19 12:06] LABS: BASOPHILS ABSOLUTE AUTO 0.05 K/mm3 (0.00-0.23); BASOPHILS PERCENT AUTO 1 % (0-2); EOSINOPHILS ABSOLUTE AUTO 0.69 K/mm3 (0.00-0.68); EOSINOPHILS PERCENT AUTO 9 % (0-6); Hematocrit 40.3 % (37.0-53.0); IMMATURE GRAN ABSOLUTE AUTO 0.01 K/mm3 (0.00-0.10); IMMATURE GRAN PERCENT AUTO 0 % (0-1); LYMPHOCYTES ABSOLUTE AUTO 1.51 K/mm3 (0.84-5.20); LYMPHOCYTES PERCENT AUTO 19 % (21-46); MONOCYTES ABSOLUTE AUTO 0.75 K/mm3 (0.16-1.47); MONOCYTES PERCENT AUTO 9 % (4-13); Mean Corpuscular HGB 29.3 pg (26.0-34.0); Mean Corpuscular HGB Conc 32.3 g/dL (31.5-36.5); Mean Corpuscular Volume 91 fL (80-100); Mean Platelet Volume 9.7 fL (9.1-12.4); NEUTROPHILS ABSOLUTE AUTO 5.07 K/mm3 (1.96-9.15); NEUTROPHILS PERCENT AUTO 63 % (41-73); Platelet Count 224 K/mm3 (150-400); RDW Coefficient Variation 11.9 % (11.7-14.2); Red Blood Cell Count 4.44 M/mm3 (4.30-5.90); White Blood Cell Count 8.08 K/mm3 (4.00-11.30)
[2020-02-19 12:27] LABS: Alanine Aminotransfer (ALT/SGP 24 U/L (12-78); Albumin, Blood 3.2 g/dL (3.4-5.0); Alk Phos 81 U/L (50-136); Anion Gap 8 mmol/L (6-16); Aspartate Aminotrans (AST/SGOT 32 U/L (12-37); Bilirubin, Total 0.2 mg/dL (0.1-1.0); Blood Urea Nitrogen 16 mg/dL (8-24); Bun/Creatinine Ratio 24.6 (12.0-20.0); CO2, Blood 24 mmol/L (21-32); Chloride, Blood 105 mmol/L (98-108); Creatinine, Blood 0.65 mg/dL (0.60-1.20); Globulin, Blood 3.2 g/dL (2.2-4.0); Glomerular Filtration Rate >60 (60-); Glucose, Blood 98 mg/dL (70-99); Potassium, Blood 3.9 mmol/L (3.5-5.5); Sodium, Blood 137 mmol/L (136-145); Total Protein, Blood 6.4 g/dL (6.4-8.2)
--- NOTE | 2020-02-19 17:48 | NUR ---
SHIFT SUMMARY: NO ACUTE CHANGES TO REPORT THIS SHIFT. PT A&O; CALM AND COOPERATIVE WITH CARE. NO C/O PAIN THIS SHIFT. PATIENT UP TO CHAIR WITH 1-ASSIST. BUE TREMORS; PATIENT REQURIES ASSISTANCE c FEEDING & TOILETING. VSS. AWAITING PLACEMENT. WCTM.
--- NOTE | 2020-02-20 04:23 | NUR ---
SHIFT SUMMARY PT A&Ox4, CALM AND COOPERATIVE WITH CARE, AND CALLS APPROPRAITELY. PT COMPLAINED OF FEELING CONSTIPATED AND REQUESTED AN ENEMA THIS EVENING. ENEMA WAS ADMINISTERED AND PT HAD A LARGE SOFT BM SHORTLY AFTER. BUE TREMOR NOTED R/T TO DX OF PARKINSONS AND R SIDED DEFICITS NOTED WELL R/T CVA IN THE PAST. PT SLEPT ON/OFF T/O SHIFT. CALLED FOR HELP WITH URINAL AND A SNACK. PT IS CURRENTLY SLEEPING WITH CALL LIGHT WITHIN REACH AND BED IN LOWEST POSITION.
[2020-02-20 11:39] LABS: BASOPHILS ABSOLUTE AUTO 0.04 K/mm3 (0.00-0.23); BASOPHILS PERCENT AUTO 0 % (0-2); EOSINOPHILS ABSOLUTE AUTO 0.92 K/mm3 (0.00-0.68); EOSINOPHILS PERCENT AUTO 10 % (0-6); Hematocrit 41.7 % (37.0-53.0); Hemoglobin 13.5 g/dL (13.5-17.5); IMMATURE GRAN ABSOLUTE AUTO 0.03 K/mm3 (0.00-0.10); IMMATURE GRAN PERCENT AUTO 0 % (0-1); LYMPHOCYTES ABSOLUTE AUTO 1.51 K/mm3 (0.84-5.20); LYMPHOCYTES PERCENT AUTO 17 % (21-46); MONOCYTES ABSOLUTE AUTO 0.77 K/mm3 (0.16-1.47); MONOCYTES PERCENT AUTO 9 % (4-13); Mean Corpuscular HGB 29.5 pg (26.0-34.0); Mean Corpuscular HGB Conc 32.4 g/dL (31.5-36.5); Mean Corpuscular Volume 91 fL (80-100); Mean Platelet Volume 9.7 fL (9.1-12.4); NEUTROPHILS ABSOLUTE AUTO 5.66 K/mm3 (1.96-9.15); NEUTROPHILS PERCENT AUTO 64 % (41-73); Platelet Count 227 K/mm3 (150-400); RDW Coefficient Variation 11.9 % (11.7-14.2); RDW Standard Deviation 40.4 fL (35.1-46.3); Red Blood Cell Count 4.57 M/mm3 (4.30-5.90); White Blood Cell Count 8.93 K/mm3 (4.00-11.30)
[2020-02-20 11:54] LABS: Alanine Aminotransfer (ALT/SGP 31 U/L (12-78); Albumin, Blood 3.1 g/dL (3.4-5.0); Albumin/Globulin Ratio 0.9 (0.8-1.8); Alk Phos 85 U/L (50-136); Anion Gap 4 mmol/L (6-16); Aspartate Aminotrans (AST/SGOT 25 U/L (12-37); Bilirubin, Total 0.3 mg/dL (0.1-1.0); Blood Urea Nitrogen 16 mg/dL (8-24); Bun/Creatinine Ratio 23.2 (12.0-20.0); CO2, Blood 28 mmol/L (21-32); Calcium, Blood 9.1 mg/dL (8.5-10.1); Chloride, Blood 108 mmol/L (98-108); Creatinine, Blood 0.69 mg/dL (0.60-1.20); Globulin, Blood 3.4 g/dL (2.2-4.0); Glomerular Filtration Rate >60 (60-); Glucose, Blood 99 mg/dL (70-99); Sodium, Blood 140 mmol/L (136-145); Total Protein, Blood 6.5 g/dL (6.4-8.2)
--- NOTE | 2020-02-20 17:39 | NUR ---
SHIFT SUMMARY: NO ACUTE CHANGES TO REPORT THIS SHIFT. PT A&O; CALM AND COOPERATIVE WITH CARE. NO C/O PAIN THIS SHIFT. BUE TREMORS R/T PARKINSONS; PT REQUIRES ASSISTANCE WITH FEEDING & TOILETING. PT SLEEPING OFF AND ON T/O SHIFT. PT/OT FOLLOWING. AWAITING PLACEMENT. WCTM.
--- NOTE | 2020-02-21 04:12 | NUR ---
SHIFT SUMMARY NO ACUTE CHANGES T/O SHIFT, A&Ox4, PT STILL COMPLAINING OF DISCOMFORT R/T TO CONSTIPATION. PT REQUESTED AN ENEMA THIS EVENING, ENEMA WAS ADMINISTERED AND PT HAD A LARGE SOFT BM SHORTLY AFTER. PT STATED HE FEELS BETTER BUT THAT HE STILL FEELS SOMEWHAT BACKED UP. STATES HE WOULD LIKE ANOTHER ENEMA IN THE AM. PT HAS SLEPT PEACEFULLY T/O SHIFT AND APPEARS TO BE IN NO DISTRESS. BUE TREMOR NOTED AND CONTRACTURES OF BLE AND BUE. PT IS CURRENTLY SLEEPING WITH CALL LIGHT WITHIN REACH.
--- NOTE | 2020-02-21 16:36 | NUR ---
SUMMARY PT IS A/O X4, PLEASANT/COOPERATIVE AFFECT. HE STATE INCREASING WEAKNESS THE LAST FEW DAYS, STATE UNABLE TO AMBULATE @ THIS TIME. PT/OT STATE THIS IS A DECLINE. HE IS 2 ASSIST TO STAND, ONLY ABLE TO STAND/PIVOT TO CHAIR. HX PARKINSONS, BUE TREMORS/JERKING WHEN AWAKE, HE REQUIRES ASSIST w MEAL SET-UP, FLUIDS. ETOH W/D RESOLVED. [facility] INTERVENTIONAL PHYSICIANSENIOR ADMINISTRATIVE SERVICES OFFICER AWAITING SNF PLACEMENT. VSS.
--- NOTE | 2020-02-22 04:45 | NUR ---
SHIFT SUMMARY ADMITTED FOR ETOH WITHDRAWAL. DNR CODE. BUPRENORPINE IS SCHEDULED. PLAN IS FOR PLACEMENT. PT HAS HX OF PARKINSONS, TREMORS, MULTI-SUBSTANCE ABUSE. HE IS WEAK AND THE TREMORS ARE SEVERE, SO HE IS A HIGH FALL RISK. HE SLEPT WELL THIS SHIFT AND CALLED APPROPRIATELY. HE IS COOPERATIVE WITH CARE AND ABLE TO MAKE HIS NEEDS KNOWN.
[2020-02-22 05:03] LABS: BASOPHILS ABSOLUTE AUTO 0.04 K/mm3 (0.00-0.23); BASOPHILS PERCENT AUTO 1 % (0-2); EOSINOPHILS ABSOLUTE AUTO 1.02 K/mm3 (0.00-0.68); EOSINOPHILS PERCENT AUTO 13 % (0-6); Hematocrit 40.4 % (37.0-53.0); IMMATURE GRAN ABSOLUTE AUTO 0.02 K/mm3 (0.00-0.10); IMMATURE GRAN PERCENT AUTO 0 % (0-1); LYMPHOCYTES ABSOLUTE AUTO 1.45 K/mm3 (0.84-5.20); LYMPHOCYTES PERCENT AUTO 19 % (21-46); MONOCYTES ABSOLUTE AUTO 0.68 K/mm3 (0.16-1.47); MONOCYTES PERCENT AUTO 9 % (4-13); Mean Corpuscular HGB 29.3 pg (26.0-34.0); Mean Corpuscular HGB Conc 32.2 g/dL (31.5-36.5); Mean Corpuscular Volume 91 fL (80-100); Mean Platelet Volume 9.9 fL (9.1-12.4); NEUTROPHILS ABSOLUTE AUTO 4.51 K/mm3 (1.96-9.15); NEUTROPHILS PERCENT AUTO 58 % (41-73); Platelet Count 207 K/mm3 (150-400); RDW Standard Deviation 40.8 fL (35.1-46.3); Red Blood Cell Count 4.43 M/mm3 (4.30-5.90); White Blood Cell Count 7.72 K/mm3 (4.00-11.30)
[2020-02-22 05:33] LABS: Alanine Aminotransfer (ALT/SGP 23 U/L (12-78); Albumin, Blood 2.9 g/dL (3.4-5.0); Albumin/Globulin Ratio 0.9 (0.8-1.8); Alk Phos 78 U/L (50-136); Anion Gap 5 mmol/L (6-16); Aspartate Aminotrans (AST/SGOT 17 U/L (12-37); Bilirubin, Total 0.3 mg/dL (0.1-1.0); Blood Urea Nitrogen 16 mg/dL (8-24); Bun/Creatinine Ratio 18.9 (12.0-20.0); C-REACTIVE PROTEIN, EXT RANGE 0.516 mg/dL (0.000-0.300); CO2, Blood 30 mmol/L (21-32); Chloride, Blood 106 mmol/L (98-108); Creatinine, Blood 0.85 mg/dL (0.60-1.20); Globulin, Blood 3.2 g/dL (2.2-4.0); Glomerular Filtration Rate >60 (60-); Glucose, Blood 94 mg/dL (70-99); Phosphorus, Blood 4.1 mg/dL (2.5-4.9); Sodium, Blood 141 mmol/L (136-145); Total Protein, Blood 6.1 g/dL (6.4-8.2)
--- NOTE | 2020-02-22 16:10 | NUR ---
SUMMARY PT IS A/O X4, PLEASANT AFFECT. HX PARKINSONS, WHEN AWAKE SIGNIFICANT BUE TREMOR, REQUIRES ASSIST TO EAT, ADLS. HE CONTINUES TO EXPERIENCE INCREASED WEAKNESS, UNABLE TO AMBULATE, DIFFICULTY JUST SITTING UP ON BEDSIDE. PT/OT WORKED w HIM THIS AFTERNOON STATE THIS IS RAPID DECLINE IN STRENGTH, STATE PT HAS BEEN REPORTING POOR SLEEP @ NOC, SUGGEST MOVING PT FROM SCU TO PROMOTE SLEEP, MANAGER WEB APPLICATION NOTIFIED. VSS. ETOH W/D RESOLVED. PLAN FOR SNF WHEN APPROP.
--- NOTE | 2020-02-23 04:49 | NUR ---
SHIFT SUMMARY ADMITTED FOR ETOH WITHDRAWAL (CIWA MONITORING IS COMPLETED). DNR CODE. PT IS AWAITING PLACEMENT. HE HAS PROGESSIVE WEAKNESS OF MUSCULATURE OF UNKNOWN CAUSE, WHICH IS RECENT ONSET WITHIN PAST WEEK. PT HAD BEEN CONSTIPATED. WE DID PERFORM BOWEL CARE WITH NO EFFECT. THIS SHIFT I ADMINISTERED AN ENEMA, WITH GOOD EFFECT. BUE TREMORS ARE STILL SEVERE. PT SLEPT THROUGHOUT SHIFT, APPROPRIATELY USING HIS CALL BUTTON. NO NEW CONCERNS THIS SHIFT.
--- NOTE | 2020-02-23 09:12 | NUR ---
pt own rx was taken to pharmacy 16 tablet Selene Marti RN pharmacy is going to send us a yellow med slip
--- NOTE | 2020-02-23 11:49 | NUR ---
Patient is sitting on a chair and alert. Patient talks about the possibility of going to a quieter rm in the hospital and then about hopefully moving to an adult foster care facility. Patient says that he has lost some strength and momentum in the last couple days and that this has effected his mood. I normalize his experience, and provide spiritual guidance and prayer. Patient responds well and shows signs of an elevated mood. I will continue to remain available to patient and family.
--- NOTE | 2020-02-23 17:05 | NUR ---
PT IS A/OX3, PLEASANT AND COOPERATIVE, THE PT APPEARS TO BE BREATHING EASILY ON RA AT THIS TIME, THE PT DID REPORT THAT HE HAS OCCASIONALY BEEN COUGHING UP SOME THICK PHLEGM NOT WITNESSED BY THIS RN, THE PT REPORTED THAT HE WAS HAVING A BAD DAY TODAY, THAT HE FELT STIFF AND MORE TREMOROUS, PT WAS A 2 PERSON ASSIST FROM THE CHAIR BACK INTO THE BED TODAY, THE PT WORKED WITH THE PHYSICAL IN BED TODAY, PTS CALL LIGHT IN REACH, WILL CONTINUE TO MONITOR AND ASSESS FOR CHANGES
--- NOTE | 2020-02-24 05:10 | NUR ---
SHIFT SUMMARY ADMITTED FOR ETOH WITHDRAWAL. DNR CODE. PT HAD BEEN FEELING WEAK OVER THE PAST SEVERAL DAYS. YESTERDAY HE WAS ABLE TO WORK WITH PHYSICAL THERAPY. HE IS AWAITING PLACEMENT. HE SLEPT THROUGHOUT THIS SHIFT. HE DENIED PAIN OR DISCOMFORT. NO NEW CONCERNS
--- NOTE | 2020-02-24 18:49 | NUR ---
SHIFT SUMMARY ANDREA DENIED PAIN THIS SHIFT. GOT UP TO CHAIR WITH AO2 AND GAIT BELT, VERY STIFF AND SEVERE TREMORS IN BUE. MEAL SET UP PROVIDED, REQUIRED SOME ASSISTANCE TO EAT. USED URINAL APPROPRIATELY, REQUESTED ENEMA AND HAD LARGE SOFT BM. PT STATES HE FEELS LIKE HE HAS LIMITED LUNG CAPACITY (NO SOB NOTED, SATS FINE), CXR DONE. TOOK MEDS PRESCRIBED. CALL LIGHT IN REACH, TM
--- NOTE | 2020-02-25 04:54 | NUR ---
BUDGET MANAGER SUMMARY NO ACUTE CHANGES THIS SHIFT. PT AAOX3 AND VERY PLEASANT. CALLS APPROPRIATELY FOR ASSISTANCE. PAIN WELL MANAGED WITH SCHEDULED MEDICATIONS, DENIES BREAKTHROUGH PAIN. ASSISTED PT WITH DRINKING FLUIDS AND USING URINAL DUE TO SEVERE PARKINSON'S TREMORS. VSS, WILL CONTINUE TO MONITOR.
--- NOTE | 2020-02-25 18:49 | NUR ---
SHIFT SUMMARY ANDREA DENIED PAIN THIS SHIFT. VERY SLEEPY TODAY. REQUIRED ASSISTANCE WITH PARTS OF HIS MEAL FOR BREAKFAST AND LUNCH, TOO TIRED TO EAT DINNER. UP TO RECLINER CHAIR WITH AO2. CONTINENT IN URINAL. TOOK MEDS PRESCRIBED. CALL LIGHT IN REAC
--- NOTE | 2020-02-26 05:33 | NUR ---
BUTTONHOLE MARKER SUMMARY NO ACUTE CHANGES. PT AAOX4 AND VERY PLEASANT. DENIES PAIN, SOB, N/V. REPORTED SOME CONGESTION BUT DENIED COUGHING UP ANY SPUTUM. ASSISTED WITH ATTENDS CHANGES PT IS INCONTINENT AT TIMES, MAINLY WHILE SLEEPING. VSS, WILL CONTINUE TO MONITOR.
--- NOTE | 2020-02-26 19:15 | NUR ---
SHIFT SUMMARY ANDREA GOT TYLENOL FOR GENERALIZED PAIN THIS SHIFT. MEAL ASSISTANCE PROVIDED. CONTINENT URINE THIS SHIFT. HAD 2 LARGE BMS IN BED COL[place]N. TOOK MEDS PRESCRIBED. STILL HAS SEVERE BUE TREMORS AND VERY STIFF ON BLE.CALL LIGHT IN REACH, FREQUENT CHECKS
--- NOTE | 2020-02-27 05:32 | NUR ---
SHIFT SUMMARY PT SLEPT WELL THIS EVENING. SOME MOIST COUGH NOTED. PT WITH BASELINE TREMORS RELATED TO PARKINSONS. WAS ABLE TO FEED HIMSELF PART OF HIS DINNER USING HIS UTENSILS PROVIDED BY OT AND HIS WRIST WEIGHT. REQUIRED ASSISTANCE FOR THE REMAINDER OF IT. PT ATE 100% OF HIS DINNER TONIGHT. PT REMAINED IN BED THROUGHOUT THE NIGHT. USED THE BEDPAN AND URINAL AND WAS INCONTINENT, REPORTING THAT HE WAS FEELING TOO WEAK TO GET OOB. PT HAD EXTRA LARGE SOFT BM. PT HAD UNEVENTFUL NIGHT. CONTINUES TO AWAIT PLACEMENT. VITAL SIGNS STABLE. WILL CONTINUE TO MONITOR AND REPORT TO DAY RN.
--- NOTE | 2020-02-27 17:29 | NUR ---
SHIFT SUMMARY PATIENT ALERT AND ORIENTED THROUGHOUT THIS SHIFT. PATIENT HAS BEEN COOPERATIVE WITH CARE THROUGHOUT THIS SHIFT. PATIENT HAS PARKINSON'S AND IS EXTREMELY RIDGED. PATIENT HAS SEVERE TREMORS. PATIENT IS ABLE TO PULL HIMSELF UP IN BED WHEN THE BED IS LAYING FLAT. PATIENT HAS BEEN CONTINENT/INCONTINENT THIS SHIFT. PATIENT HAS SLEPT THROUGH MUCH OF THIS SHIFT. PATIENT IS CURRENTLY LAYING IN BED SLEEPING.
--- NOTE | 2020-02-28 04:02 | NUR ---
BUILDING CARPENTER HELPER SUMMARY PT IS ALERT AND ORIENTED, COOPERATIVE WITH CARE. USES CALL LIGHT APPROPRIATELY. USE OF URINAL/BEDPAN. HX OF ADVANCED PARKINSONS WITH SEVERE TREMORS NOTED. DENIES PAIN/SOB. VSS. NO ACUTE CHANGES AT THIS TIME, AWAITING PLACEMENT. BED IN LOWEST POSITION WITH CALL LIGHT IN REACH. WILL CONTINUE TO MONITOR AND REPORT TO ONCOMING RN.
--- NOTE | 2020-02-28 17:23 | NUR ---
SHIFT SUMMARY PT IS AO AND PLEASANT. PT DENIES PAIN, N/V, SOB. PT WORKED WITH PT/OT TODAY AND IS UP IN THE CHAIR FOR DINNER. PT IS A 2 PERSON MAX ASSIST FOR TRANSFERS, POSSIBLY A LIFT DEPENDING ON EXERTION LEVEL. PLAN IS FOR SNF PLACEMENT. PT HAS GOOD APPETITE THIS SHIFT. PT IS IN CHAIR, ALARM ON, CALL LIGHT IN REACH.
--- NOTE | 2020-02-28 18:02 | NUR ---
Page 5 of 5 SUMMARY: 02/27/19- Received message from [facility] Garcia, she and her feel that pt would not be a good fit and declined pt. Audrey from [facility] requested a new packet on pt to review. Provided Fax number, . -amanuelw 02/27/19- spoke with [facility] about update for placement. Received career services manager note stating that [facility] keycase assembler, Vaishali was contacted by them. [facility] has declined admission due to executive order in relation to COVID. Have listed of facilities to call for placement of pt. [facility] would be his placement after SNF. -amanuelw 02/27/20- Still waiting for placement. -amanuelw
--- NOTE | 2020-02-29 06:10 | NUR ---
SHIFT SUMMARY AOX4. SLOW TO RESPOND. FOLLOWS SIMPLE DIRECTIONS. VSS. TREMORS TO BUE R/T PARKINSONS. DENIES DYSPNEA, N/V, PAIN. REPORTED ABD DISTENTION, FIRM, STATES FEELS CONSTIPATED-GAVE ENEMA. HAD XL BM, PT REPORTS FEELING BETTER & ABD SOFT AFTERWARDS. AWAITING PLACEMENT. CALL LIGHT IN REACH & PT ABLE TO MAKE NEEDS KNOWN.
--- NOTE | 2020-02-29 14:53 | NUR ---
Spoke [facility] at [phone]. They did not receive the fax sent yesterday due to their fax having problems. Refaxed packet for their review. Attempted to talk with [facility] in [place]. Will need to call Kierra at [phone].
--- NOTE | 2020-02-29 17:48 | NUR ---
SHIFT SUMMARY: NO ACUTE EVENTS. UP IN CHAIR X 2. STATED PAIN IS CONTROLLED AT THIS TIME. IS CONTINENT/INCONTINENT AT TIMES. NEEDS ASSISTANCE WITH MEALS. APPEARS STABLE, IS AWAITING PLACEMENT.
--- NOTE | 2020-03-01 06:02 | NUR ---
SHIFT SUMMARY NO ACUTE CHANGES THIS SHIFT. AOX4. TREMORS BUE R/T ADVANCED PARKINSONS. VSS. REPORTS CHRONIC 5/10 PAIN IN L SCIATIC, STATES CURRENT MED REGIMEN ASSISTS c HIS PAIN LEVEL. DENIES N/V OR DYSPNEA. INCONT/CONT OF URINE. 2 MAX ASSIST BACK TO BED FROM RECLINER LAST NIGHT. AWAITING PLACEMENT. CALL LIGHT IN REACH & PT ABLE TO MAKE NEEDS KNOWN.
[2020-03-01 09:46] LABS: BASOPHILS ABSOLUTE AUTO 0.11 K/mm3 (0.00-0.23); BASOPHILS PERCENT AUTO 1 % (0-2); EOSINOPHILS ABSOLUTE AUTO 1.21 K/mm3 (0.00-0.68); EOSINOPHILS PERCENT AUTO 12 % (0-6); Hemoglobin 13.6 g/dL (13.5-17.5); IMMATURE GRAN ABSOLUTE AUTO 0.04 K/mm3 (0.00-0.10); IMMATURE GRAN PERCENT AUTO 0 % (0-1); LYMPHOCYTES ABSOLUTE AUTO 1.63 K/mm3 (0.84-5.20); LYMPHOCYTES PERCENT AUTO 16 % (21-46); MONOCYTES ABSOLUTE AUTO 1.22 K/mm3 (0.16-1.47); MONOCYTES PERCENT AUTO 12 % (4-13); Mean Corpuscular HGB 29.4 pg (26.0-34.0); Mean Corpuscular HGB Conc 32.4 g/dL (31.5-36.5); Mean Corpuscular Volume 91 fL (80-100); Mean Platelet Volume 9.5 fL (9.1-12.4); NEUTROPHILS ABSOLUTE AUTO 6.32 K/mm3 (1.96-9.15); NEUTROPHILS PERCENT AUTO 60 % (41-73); Platelet Count 238 K/mm3 (150-400); RDW Coefficient Variation 11.9 % (11.7-14.2); RDW Standard Deviation 39.7 fL (35.1-46.3); Red Blood Cell Count 4.63 M/mm3 (4.30-5.90); White Blood Cell Count 10.53 K/mm3 (4.00-11.30)
[2020-03-01 10:13] LABS: Anion Gap 8 mmol/L (6-16); Blood Urea Nitrogen 17 mg/dL (8-24); Bun/Creatinine Ratio 24.8 (12.0-20.0); CO2, Blood 28 mmol/L (21-32); Calcium, Blood 9.4 mg/dL (8.5-10.1); Chloride, Blood 103 mmol/L (98-108); Creatinine, Blood 0.69 mg/dL (0.60-1.20); Glomerular Filtration Rate >60 (60-); Glucose, Blood 79 mg/dL (70-99); Sodium, Blood 139 mmol/L (136-145)
--- NOTE | 2020-03-01 17:54 | NUR ---
SHIFT SUMMARY PT WORKED WITH PT AND OT THIS SHIFT. UP IN CHAIR MOST OF THE DAY. PT HAS A GOOD APPETITE AND EATS MOST OF HIS MEALS. NO COMPLAINTS OF PAIN OR SHORTNESS OF BREATH. WAITING FOR PLACEMENT. CALL LIGHT IN REACH. WILL CONTINUE TO MONITOR AND REPORT TO ONCOMING RN.
--- NOTE | 2020-03-02 04:13 | NUR ---
SHIFT SUMMARY ASSUMED CARE OF PT AT 1900. PT IS A/OX4. HERT SOUNDS REGULAR, LUNG SOUNDS CLEAR. PT HAS TREMORS T/O. PT WAS A 2P ASSIST TO BSC. PT HAD SMALL BOWEL MOVEMENT AND REQUESTED AN ENEMA BECAUSE HE FELT THAT HIS ABD PAIN WAS BECAUSE HE WAS CONSTIPATED. PT FELL ASLEEP AND REQUESTED FOR THE EMEMA LATER. NO ACUTE EVETNS, PT SLEPT T/O THE NIGHT. CALL LIGHT IN REACH, BED IN LOWEST POSTION.
--- NOTE | 2020-03-02 15:35 | NUR ---
03/02/20- spoke with Vaishali Saleem GUAN, pt's medical case manager, to discuss the patient's care needs. Reviewed with her PT and OT's recommendations and the fact that pt is requiring more assistance since he was admitted over 30 days ago. She did confirm that his daughters do live in the [place] area with friends of his. Reviewed with her pt's desire to be closer to his daughters. Vaishali reviewed what their requirements are for paying for [facility] placement. She has assigned a TC case management rn to [facility] and they will help with finding placement. Vaishali stated that now that she is aware of [facility] needs for post-hospital care, they will be able to aid in finding placement. She will contact myself and Jamia ([facility]) once she knows who will be his TC worker and they will start looking into placement closer to his daughters. -alyse 03/02/20- per chart review with Dr. Galeano, still working on placement. Discussed the denial for his Niraj PA. Doctor will talk with pt's PCP to discuss why he would like to pt to be on this medication. They will discuss this further. -alyse
--- NOTE | 2020-03-02 18:39 | NUR ---
SHIFT SUMMARY A&O WITH HISTORY OF PARKINSONS. EXPERIENCING TREMORS THROUGHOUT. GOT OUT OF BED AND TRANSFERED TO CHAIR WITH 2 PERS ASSISTANCE AND GAIT BELT. RECEIVED A BED BATH IN THE AFTERNOON. PT ACCEPTS CARE AND IS PLESANT TO WORK WITH. AWATING PLACEMENT. PT IN ROOM WATCHING TV, WAS ABLE TO TAKE A NAP IN THE LATE AFTERNOON. CALL LIGHT W/IN REACH.
--- NOTE | 2020-03-03 04:12 | NUR ---
SHIFT SUMMARY ASSUMED CARE OF PT AT 1900. PT IS A/OX4. HEART SOUNDS REGULAR, LUNG SOUNDS CLEAR. PT WAS CONTINENT OF BOWEL AND URINE. PT HAS SEVERE TREMORS TONIGHT. PT WAS UPSET ABOUT A FAMILY MATTER. PT SAT ON THE BED AND DID SOME OF HIS EXERCISES BECAUSE HE COULDNT SLEEP. NO ACUTE EVENTS, PT WAS ABLE TO SLEEP. CALL LIGHT IN REACH, BED IN LOWEST POSTION.
--- NOTE | 2020-03-03 11:12 | NUR ---
Received VM from [facility], they are declining pt for placement. -alyse
--- NOTE | 2020-03-03 13:51 | NUR ---
03/03/20- Michelle with [facility] is making calls trying to find placement for pt with concentration in the [place] area so that he can be closer to his daughters. Notified [facility] about conversation with [employer] and them assigning TC case assembler. -alyse 03/03/20- [facility] declined pt for placement. -alyse
--- NOTE | 2020-03-03 17:13 | NUR ---
SUMMARY PT SITTING UP IN THE CHAIR AT THE BEDSIDE, WORKED WITH PT/OT TODAY, SLEPT OFF AND ON, NEEDS ASSIST WITH MEALS, ABLE TO TAKE HIS PILLS WHOLE, PT WITH SEVERE PARKINSONS, HAS BEEN PLEASANT AND COOPERATIVE WITH CARE, VSS, NO ACUTE CHANGES
--- NOTE | 2020-03-04 06:49 | NUR ---
SHIFT SUMMARY PATIENT ALERT AND ORIENTED. HE HAD NO COMPLAINTS OF PAIN OR SHORTNESS OF BREATH. REQUIRED 2 MAX ASSIST TO TRANSFER FROM HIS RECLINER TO HIS BED. PATIENT SLEPT WELL OVERNIGHT AND HAD MINIMAL NEEDS. BED IN LOWEST POSITION WITH WHEELS LOCKED AND ALARM ON. CALL LIGHT WITHIN REACH. REPORT GIVEN TO ONCOMING RN.
--- NOTE | 2020-03-04 18:22 | NUR ---
SHIFT SUMMARY: NO ACUTE EVENTS. WORKED WITH PHYSICAL THERAPY, SAT IN CHAIR MOST OF THE DAY. GOOD PO INTAKE. TAKING PO BOWEL MEDS, WANTED ENEMA BUT WAS IN CHAIR; WILL PASS ON TO NOC SHIFT RN. DENIED PAIN.
--- NOTE | 2020-03-05 02:06 | NUR ---
03/04/192099 PT HAPPY AND COOPERATIVE; PT ASSISTED BACK TO BED X 2 ASSIST AND GAIT BELT; PT BEARS WEIGHT VERY POORLY AND REQUIRED 100% ASSISTANCE; PT HAS NOTABLE TREMORS BILATERAL UPPER ARMS AND REQUIRES ASSISTANCE WITH DRINKING FLUIDS FROM [place] AND TAKING MEDS.
--- NOTE | 2020-03-05 03:53 | NUR ---
SHIFT SUMMARY: 55 Y/O MALE RESTED COMFORTABLY ALL SHIFT; PT CONTINUES TO HAVE SPASTIC TREMORS TO BILATERAL UPPER ARMS THAT REQUIRE NURSING STAFF TO ASSIST WITH ALL ADLS/IADLS; ALERT AND ORIENTED X 4; PT AWAITING PLACEMENT TO SNF; BED ALARM APPLIED FOR SAFETY, BED LOW POSITION WITH CALL LIGHT AT SIDE.
--- NOTE | 2020-03-05 11:07 | NUR ---
03/05/20- Per chart review with Dr. Galeano, pt is stable to discharge once placement can be found. [facility] and [employer] case working on finding him a place. Whatever place is found MUST BE REVIEWED AND APPROVED BY [employer] since they will be the once to pay for his placement.-alyse
--- NOTE | 2020-03-05 18:21 | NUR ---
SHIFT SUMMARY: NO EVENTS THIS SHIFT. NO CHANGES IN OVERALL CONDITION. NO BM TODAY DESPITE ALL BOWEL MEDS GIVEN. TOLERATING DIET AND PO FLUIDS. DENIED PAIN, NO N/V.
--- NOTE | 2020-03-06 07:24 | NUR ---
SHIFT SUMMARY PATIENT ALERT AND ORIENTED. HAD NO COMPLAINTS OF PAIN OR SHORTNESS OF BREATH. NO SIGN OF ALCOHOL WITHDRAWL PRESENT. PATIENT SLEPT WELL OVERNIGHT. BED IN LOWEST POSITION WITH WHEELS LOCKED AND ALARM ON. CALL LIGHT WITHIN REACH. REPORT GIVEN TO ONCOMING RN.
--- NOTE | 2020-03-06 14:17 | NUR ---
This patient has given this student nurse Jg Appiah permission to provide care at this time.
--- NOTE | 2020-03-06 17:27 | NUR ---
PT IS A/OX3, PLEASANT AND COOPERATIVE, THE PT IS HARD TO UNDERSTAND AT TIMES, PT HAS SEVERE TREMORS DUE TO PARKINSON'S, PT IS A 2 PERSON ASSIST TO PIVOT TRANSFER TO THE CHAIR, THE PT ALSO NEEDS ASSISTANCE WITH MEALS DUE TO THE TREMORS, THE PT APPEARS TO BE BREATHING EASILY ON RA, THE PT WAS VERY SLEEPY THIS AFTERNOON AND DECLINED THE GABAPENTIN, REPORTED THAT HE THOUGHT THE TRAZADONE HE WAS TAKING AT BEDTIME IS WHAT WAS CAUSING THE SLEEPING TODAY, CALL LIGHT IN REACH, WILL CONTINUE TO MONITOR AND ASSESS FOR CHANGES
--- NOTE | 2020-03-06 20:41 | NUR ---
ASSUMED CARE. HEMANTH IS IN GOOD SPIRITS. AOX3, COOPERATIVE. SITTING UP IN CHAIR. STATES HE IS DOING GOOD. VS WNL. AFEBRILE. TREMORS STILL PRESENT. STATES HE HAS GOTTEN WEAK OVER SOME TIME COMPARED TO WHAT HE WAS SEVERAL WEEKS AGO. HE THINKS IT HAS TO DO WITH THE TRAZADONE, IT TENDS TO MAKE HIM SLEEPY T/O THE DAY DISPITE HIM CUTTING THE DOSE. HE REQUEST NOT TO HAVE IT TONIGHT. ALSO REQUEST FOR ENEMA DUE TO CONTIPATION. WILL CHECK ORDERS. CALL LIGHT IS IN REACH.
--- NOTE | 2020-03-07 05:19 | NUR ---
SHIFT SUMMARY: AOX3, COOPERTIVE. PARKINSONS. GOOD APPETITE, GOOD HYDRATION. VS WNL, AFEBRILE. PAIN MANAGED WITH CURRENT TREATMENT. GAVE ENEMA WITH 2 LARGE BM RESULT. SLEPT WELL AFTER MIDNIGHT MED. NO ACUTE CHANGES TO REPORT. CALL LIGHT IS IN REACH.
--- NOTE | 2020-03-07 12:10 | NUR ---
03/07/20- received call from Eva Noel with [employer], . She has been assigned patient's case. She reviewed her role with ROGE. -alyse
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
--- NOTE | 2020-03-07 17:23 | NUR ---
PT IS A/OX3, PLEASANT AND COOPERATIVE, THE PT IS UP WITH 2 PERSON ASSIST TO THE CHAIR, THE PT IS VERY WEAK ON HIS FEET AND STIFF, THE PT HAS SEVERE TREMORS FROM THE PARKISONS DISEASE, PT DID REPORT THAT HE FELT MORE AWAKE TODAY COMPARED TO YESTERDAY, PT WAS UP INTO THE CHAIR FOR ALL MEALS, PT APPEARS TO BE BREATHING EASILY ON RA, CALL LIGHT IN REACH, WILL CONTINUE TO MONITOR AND ASSESS FOR CHANGES
--- NOTE | 2020-03-07 19:40 | NUR ---
ASSUMED CARE. HEMANTH JUST GOT BACK TO BED FROM USING THE COMMODE. REPORTS NO CHANGES TODAY OTHER THEN HE WAS ABLE TO BE MORE ALERT SINCE HE DID NOT TAKE TRAZADONE. HE WAS STILL ABLE TO SLEEP, AND EVEN TOOK A NAP TODAY. DOES NOT WANT TO TAKE IT TONIGHT WELL. WILL MONITOR AND PROVIDE CARE. CALL LIGHT WITH IN REACH.
--- NOTE | 2020-03-08 05:29 | NUR ---
SHIFT SUMMARY: HEMANTH HAS SLEPT WELL T/O THE NIGHT. HAS HAD NO ACUTE CHANGES OR CONCERNS. STILL VERY WEAK AND STIFF ON TRANSFER. ABLE TO ASSIST SOME WITH ROLLING IN BED. VS WNL. STILL AWAITING PLACEMENT. CALL LIGHT HAS REMAINED IN REACH.
--- NOTE | 2020-03-08 05:33 | NUR ---
SHIFT SUMMARY: AOX3, SLOW TO RESPOND. FATIQUED. DENIES PAIN. NUMBNESS TO LEFT KNEE AREA. LEFT KNEE SWOLLEN, INCISION PINK AND HEALED. DRESSING TO LATERAL SIDE WITH URESIL DRAIN. DRAIN HAS SCANT AMOUNT OF SEROUS SANGUOUS OUTPUT THIS SHIFT. USING CONDOM CATH T/O NIGHT, URINE IS ORANGE TINGE, NO SEDIMENT. CONTINUES TO HAVE DECREASE APPETITE. H/H NOTED AT 8.1/24.7 WHICH IS INCREASE FROM YESTERDAY. SLEPT OFF AND ON T/O NIGHT. DENIED ANY CONCERNS. CALL LIGHT HAS REMAINED IN REACH.
--- NOTE | 2020-03-08 16:35 | NUR ---
SHIFT SUMMARY NO ACUTE CHANGES T/O SHIFT, PT CALM AND COOPERATIVE WITH CARE, A&Ox4. NO C/O CHEST PAIN, GENERALIZED PAIN, OR SOB T/O SHIFT. PT HAD A LARGE SOFT/FORMED BM THIS AFTERNOON. PT GOT PT UP IN CHAIR FOR A GOOD PORTION OF DAY. PT WAS A 2 PERSON STAND PIVOT TO BSC AND BACK TO BED. PT CAN BARE WEIGHT TOLERATED AND HAS LIMITED MOVEMENT IN THE LEGS. PT IS ON RA AND VITALS HAVE BEEN STABLE. HE IS CURRENTLY SLEEPING WITH BED IN LOWEST POSITION AND CALL LIGHT WITHIN REACH. STILL WAITING PLACEMENT.
--- NOTE | 2020-03-08 21:52 | NUR ---
ASSUMED CARE. ANDREA IS SLEEPING BUT AWAKENS TO SOUND. DROWSY AND NOT OPENING EYES. STATES HIS BODY JUST KNOWS WHEN HE NEEDS TO REST. DENIES ANY CHANGES OR CONCERNS. PM MEDS GIVEN. ATTENDS DRY. HE WAS ASLEEP BEFORE i EVEN LEFT THE ROOM. STILL WITHHOLDING TRAZADONE PER REQUEST. CALL LIGHT IS IN REACH.
--- NOTE | 2020-03-09 05:38 | NUR ---
SHIFT SUMMARY: HEMANTH HAS SLEPT ALMOST THE ENTIRE SHIFT, AWAKENING A FEW TIMES FOR URINAL USE OR ATTENDS CHANGE. STATES HIS BODY IS TIRED. VS WNL, AFEBRILE, NO COMPLAINTS NOTED, CALL LIGHT IS IN REACH.
--- NOTE | 2020-03-09 19:18 | NUR ---
SHIFT SUMMARY: NO ACUTE CHANGES TO REPORT THIS SHIFT. PT A&O; SLEEPY; CALM AND COOPERATIVE WITH CARE. UP TO CHAIR c 2-ASSIST R/T PARKINSONS & WEAKNESS. PT/OT FOLLOWING. MEDICALLY STABLE; AWAITING PLACEMENT. REPORT GIVEN TO ONCOMING RN.
--- NOTE | 2020-03-10 03:57 | NUR ---
SHIFT SUMMARY A/O, ABLE TO MAKE NEEDS KNOWN. COOPERATIVE WITH CARE. CALLS AND ANSWERS QUESTIONS APPROPRIATELY. NO C/O PAIN/DISCOMFORT. VERY TREMULOUS WITH DIAPHORESIS. STATES THAT HE GETS THAT WAY WHEN HE GETS STRESSED OUT AND DOESNT HAVE HIS MEDICATIONS. ALSO, THAT IT TAKES HIM A LITTLE WHILE TO CALM DOWN. REPOSITIONED TOLERATED T/O NIGHT. VSS. NO ACUTE CHANGES NOTED OVERNIGHT. APPEARED TO REST MUCH OF THE NIGHT. CONTINUES TO AWAIT PLACEMENT. BED IN LOWEST POSITION; ALARM ON. CALL LIGHT AND BELONGINGS WITHIN REACH. REPORT TO ONCOMING RN.
--- NOTE | 2020-03-10 16:20 | NUR ---
SHIFT SUMMARY PT RESTING QUIETLY AT START OF SHIFT. WOKE EASILY FOR CARE. PT WITH HX OF PARKINSONS, ADHD, AND POLYSUBSTANCE ABUSE. PT VERY STIFF WITH SEVERE TREMORS. MAKING IT DIFFICULT TO FEED HIMSELF. PT EATS WELL, ESPECIALLY WITH ASSISTANCE. PT THEN NEEDED TO GET TO BSC FOR BM; 3P MAX ASSIST USING GB TO GET TO BSC. 3P MAX ASSIST TO GET BACK TO BED. BED BATH GIVEN AND LINENS CHANGED AGAIN. PT IS MESSY WHEN FEEDING HIMSELF AND TRYING TO DRINK LIQUIDS. NO C/O PAIN. DENIES NEEDS. VERY PLEASANT AND GRATEFUL FOR CARE. DR HAQUE IN TO SEE PT; CONTINUES TO WAIT PLACEMENT. RESTING QUIETLY AT THIS TIME. CALL LT IN REACH.
--- NOTE | 2020-03-10 19:43 | NUR ---
ASSISTED OFF BEDSIDE COMMODE POST LARGE BM. ALERT AND ORIENTED. REPOSITIONED IN BED. CALL LIGHT IN REACH. NO C/O VOICED
--- NOTE | 2020-03-11 04:03 | NUR ---
SHIFT SUMMARY RESTING QUIETLY WITH OCCASIONAL INTERRUPTIONS - SUCH INCONTINENCE AND MEDICATIONS ORDERED. SEE MAR FOR DETAILS, CALL LIGHT IN REACH
--- NOTE | 2020-03-11 17:45 | NUR ---
SHIFT SUMMARY PATIENT ALERT AND ORIENTED THROUGHOUT THIS SHIFT. PATIENT UP TO THE RECLINER FOR BREAKFAST AND THROUGH LUNCH. PATIENT 2 PERSON ASSIST TRANSFER TO CHAIR AND BSC. PATIENT DENIES PAIN THROUGHOUT THIS SHIFT. PATIENT BACK TO BED AFTER LUNCH AND HAS NAPPED THROUGHOUT THE AFTERNOON. PATIENT CURRENTLY LAYING IN BED SLEEPING.
--- NOTE | 2020-03-11 19:12 | NUR ---
AWAKE. REPOSITIONED. CALL LIGHT IN REACH. NO C/O VOICED
--- NOTE | 2020-03-12 17:30 | NUR ---
SHIFT SUMMARY PATIENT ALERT AND ORIENTED THIS SHIFT. PATIENT 2 PERSON ASSIST TO THE COMODE AND BEDSIDE CHAIR. PATIENT COOPERATIVE WITH CARE. PATIENT SLEPT AFTER BREAKFAST UNTIL LATE AFTERNOON. PATIENT UP TO THE RECLINER UPON AWAKENING. PATIENT CURRENTLY UP IN THE RECLINER WATCHING TELEVISION.
[2020-03-12 22:40] LABS: Source, Urine Catheter
--- NOTE | 2020-03-12 22:40 | NUR ---
STRAIGHT CATHED FOR UA/URINE BACTERIAL CX WITH ASEPTIC TECHNIQUE. TOLERATED WELL. SPECIMEN SENT TO LAB FOR PROCESSING. CALL LIGHT IN REACH. SLIGHT DIAPHORESIS, TEMP AFEBRILE - SEE DOC FLOW SHEETS. WILL MONITOR
[2020-03-12 22:42] LABS: Bilirubin, Urine Neg (Neg); Blood, Urine Neg (Neg); Glucose Qualitative, Urine Neg (Neg); Ketones, Urine Neg (Neg); Leukocyte Esterase, Urine Neg (Neg); Nitrite, Urine Neg (Neg); Protein, Urine 1+ (Neg); Specific Gravity, Urine 1.015 (1.003-1.022); Urobilinogen, Urine 2+ (Normal); pH, Urine 6.5 (5.0-8.0)
[2020-03-12 22:47] LABS: Appearance, Urine Clear (Clear); Color, Urine Yellow (P-Yellow)
--- NOTE | 2020-03-13 06:14 | NUR ---
SHIFT SUMMARY HAS BEEN RESTING QUIETLY WITH OCCASIONAL EPISODES OF WAKING AND ASKING FOR DRINK OF WATER. CURRENTLY RESTING QUIETLY. CALL LIGHT IN REACH
--- NOTE | 2020-03-13 12:22 | NUR ---
03/13/20- received call from floor nurse stating that the patient is in need to a replacement social security so that he can get his money. Went up to speak with pt, he stated that he got it all taken care of. Speech at times was difficult to follow and got worse with his tremors. Confirmed with him multiple times that he had gotten his new card set up, pt acknowledged that this is true. Asked about his Suboxone, pt states that it is working very well and needs no dose changes at this time. While up on the floor, was asked to speak with an individual from [facility] that has come to do an assessment on pt to see if he is appropriate for their facility. Spoke with her and KELVIN Blandon, regarding the patient, what barriers we have run into with trying to find placement. Discussed Suboxone and that he is enrolled in MAT with [facility]. Explained briefly how the program works at [facility] in regards to follow up care and management of Suboxone. Briefly discussed how the patient is doing overall medically, etc. She stated that she will be doing a [id number] assessment of pt. She will reach out if she has further questions.-alyse
--- NOTE | 2020-03-13 18:21 | NUR ---
SHIFT SUMMARY PT A&O AND ABLE TO MAKE NEEDS KNOWN. PT IS A 2 PERS TRANSFER TO CHAIR. PT WAS UP IN CHAIR FOR BREAKFAST AND LUNCH. DURING MID MORING CHILD HEALTH ASSOCIATE REPORTED PT DIAPHORETIC. PT STATED HE OVER EXERTED HIMSELF WHEN TALKING ON THE PHONE. PT HAD DIFFICULT TIME HOLDING PHONE AND TALKING WITH TREMORS. PT VITALS WERE TAKEN AND WERE W/IN PT NORMAL RANGE. PT TOOK PILLS WHOLE IN WATER W/O ISSUES. CHILD HEALTH ASSOCIATE REPORTED PT HAVING DIFFICULTY EATING FOOD. INFORMED DR OF CONCERN. DR MENTIONED A SWALLOW EVAL MIGHT BE NEEDED. PT CURENLTY IN BED RESTING. CALL LIGHT W/IN REACH.
--- NOTE | 2020-03-13 20:58 | NUR ---
2030 PT WAS NOTED DURING H.S. MED PASS TO HAVE MUCH DIFFICULTY HOLDING GLASS OF WATER WITH BILATERAL UPPER ARM TREMORS; THIS NURSE ASSISTED PT WITH TAKING MEDS AND HELD GLASS OF WATER TO ENABLE HIM TAKE DRINKS OF WATER; BED ALARM MAINTAINED.
--- NOTE | 2020-03-14 04:32 | NUR ---
SHIFT SUMMARY: 55 Y/O MALE RESTING COMFORTABLY IN BED; PT ABLE TO VOICE ALL HIS NEEDS TO STAFF BY LISTENING VERY CAREFULLY; PT HAS VERY SPASTIC TREMORS TO BILATERAL UPPER EXTREMITIES AND REQUIRES ASSISTANCE WITH ALL ADLS/IADLS; BED ALARM APPLIED FOR SAFETY, BED LOW POSITION WITH CALL LIGHT AT SIDE; STILL AWAITING SNF PLACEMENT.
[2020-03-14 05:29] LABS: BASOPHILS ABSOLUTE AUTO 0.07 K/mm3 (0.00-0.23); BASOPHILS PERCENT AUTO 1 % (0-2); EOSINOPHILS ABSOLUTE AUTO 0.66 K/mm3 (0.00-0.68); EOSINOPHILS PERCENT AUTO 8 % (0-6); Hematocrit 40.2 % (37.0-53.0); Hemoglobin 12.8 g/dL (13.5-17.5); IMMATURE GRAN ABSOLUTE AUTO 0.02 K/mm3 (0.00-0.10); IMMATURE GRAN PERCENT AUTO 0 % (0-1); LYMPHOCYTES PERCENT AUTO 17 % (21-46); MONOCYTES ABSOLUTE AUTO 1.01 K/mm3 (0.16-1.47); MONOCYTES PERCENT AUTO 13 % (4-13); Mean Corpuscular HGB Conc 31.8 g/dL (31.5-36.5); Mean Corpuscular Volume 88 fL (80-100); Mean Platelet Volume 8.7 fL (9.1-12.4); NEUTROPHILS ABSOLUTE AUTO 4.79 K/mm3 (1.96-9.15); NEUTROPHILS PERCENT AUTO 61 % (41-73); Platelet Count 453 K/mm3 (150-400); RDW Coefficient Variation 11.7 % (11.7-14.2); RDW Standard Deviation 37.4 fL (35.1-46.3); Red Blood Cell Count 4.57 M/mm3 (4.30-5.90); White Blood Cell Count 7.85 K/mm3 (4.00-11.30)
[2020-03-14 05:53] LABS: Alanine Aminotransfer (ALT/SGP 36 U/L (12-78); Albumin, Blood 2.5 g/dL (3.4-5.0); Albumin/Globulin Ratio 0.6 (0.8-1.8); Alk Phos 90 U/L (50-136); Anion Gap 7 mmol/L (6-16); Aspartate Aminotrans (AST/SGOT 32 U/L (12-37); Bilirubin, Total 0.5 mg/dL (0.1-1.0); Blood Urea Nitrogen 13 mg/dL (8-24); Bun/Creatinine Ratio 21.8 (12.0-20.0); CO2, Blood 28 mmol/L (21-32); Calcium, Blood 9.2 mg/dL (8.5-10.1); Chloride, Blood 103 mmol/L (98-108); Globulin, Blood 4.5 g/dL (2.2-4.0); Glomerular Filtration Rate >60 (60-); Glucose, Blood 100 mg/dL (70-99); Magnesium, Blood 1.9 mg/dL (1.6-2.4); Phosphorus, Blood 3.8 mg/dL (2.5-4.9); Potassium, Blood 4.1 mmol/L (3.5-5.5); Sodium, Blood 138 mmol/L (136-145)
--- NOTE | 2020-03-14 18:38 | NUR ---
SHIFT SUMMARY PT IS A&O AND IS ABLE TO MAKE NEEDS KNOWN. PT HAD A SPEECH EVAL TODAY AND DIET CHANGED TO PUREE, PILL IN APPLE SAUCE. PT STATED FEELING DEHYDRATED AND REQUESTED AN IV AND FLUIDS, DR NOTIFIED OF REQUEST. PT IS EATING AND DRINKING T/O SHIFT. DURING AFTERNOON PT HAD INTERMENT DIAPHORESIS POSSIABLY DUE TO TREMORS, PT AFEBRILE. PT RESTING IN ROOM, BED IN LOWEST POSITION, CALL LIGHT W/IN REACH.
--- NOTE | 2020-03-15 03:59 | NUR ---
SHIFT SUMMARY PATIENT HAD NO ACUTE CHANGES OBSERVED. AXOX 3 AND TWO ASSIST TO BSC. USES URINAL WITH ASSIST. TAKES MEDICATION X ONE EACH WITH APPLE SAUCE. NO IV ACCESS. DENIES PAIN, SOB, AND N/V. VSS/AFEBRILE. BASELINE TREMORS WITH HX OF PARKINSON. CALL LIGHT IN REACH. BED IN LOWEST POSITION. WILL CONTINUE TO MONITOR UNTIL DAY SHIFT NURSE ASSUMES CARE.
--- NOTE | 2020-03-15 18:23 | NUR ---
SHIFT SUMMARY PT AOX4; CALLS APPROPRIATELY. PT HAS HX OF PARKINSONS; TREMORS PRESENTS AT ALL TIMES; NEED FEEDER. PT USES BSC WITH 2 P MAX; STILL AWAITS FOR PLACEMENT AT THIS TIME AND PT DENIES PAIN. BED IS IN THE LOWEST POSITION AND CALL LIGHT WITHI REACH
--- NOTE | 2020-03-16 05:01 | NUR ---
SPECIFICATIONS CHECKER SUMMARY NO ACUTE CHANGES THIS SHIFT. PT AAOX3 AND VERY PLEASANT. PT REPORTS PAIN WELL MANAGED WITH SCHEDULED BUPRENORPHINE. ATTENDS CHANGED NEED AND REPOSITIONED ALLOWED BY PT. PT HAS SLEPT MOST OF THE SHIFT WITH NO COMPLAINTS. VSS, WILL CONTINUE TO MONITOR.
[2020-03-16 05:43] LABS: Anion Gap 5 mmol/L (6-16); Blood Urea Nitrogen 13 mg/dL (8-24); Bun/Creatinine Ratio 22.5 (12.0-20.0); CO2, Blood 29 mmol/L (21-32); Calcium, Blood 9.1 mg/dL (8.5-10.1); Chloride, Blood 105 mmol/L (98-108); Creatinine, Blood 0.58 mg/dL (0.60-1.20); Glomerular Filtration Rate >60 (60-); Glucose, Blood 92 mg/dL (70-99); Potassium, Blood 3.9 mmol/L (3.5-5.5); Sodium, Blood 139 mmol/L (136-145)
--- NOTE | 2020-03-16 15:26 | NUR ---
Patient is sitting on a chair and eating ice cream. Patient immediately shares about the possibilities of DC to live near family who are willing to help him with his care needs. Patient also explains that both of his daughters are now in that same are ([place] ). Patient gets tearful as he talks about the larissa of seeing his daughters. I provide therapeutic listening and prayer. Patient voices appreciation for the time and care.
--- NOTE | 2020-03-16 19:16 | NUR ---
RESTING QUIETLY IN BED. CALL LIGHT IN REACH
--- NOTE | 2020-03-17 03:12 | NUR ---
SHIFT SUMMARY HAS BEEN RESTING WITH FEW INTERRUPTIONS THIS SHIFT SINCE HS. AWAKENED FOR MEDICATIONS SCHEDULED AND WOKE UP FOR USE OF URINAL. CALL LIGHT IN REACH.
--- NOTE | 2020-03-17 16:17 | NUR ---
PT IS A/OX3, PLEASANT AND COPERATIVE, THE PT IS A MAX ASSIST UP INTO THE CHAIR, THE PT HAS BEEN IN THE RECLINER FOR MOST OF THE DAY, PT HAS SEVERE TRMORS, THE APPEARS TO BE BREATHING EASILY ON RA AT THIS TIME, PT DENIES PAIN AT THIS TIME, CALL LIGHT IN REACH, WILL CONTINUE TO MONITOR AND ASSESS FOR CHANGES
--- NOTE | 2020-03-18 04:55 | NUR ---
SHIFT SUMMARY NO ACUTE CHANGES THIS SHIFT, SLEPT IN RECLINER UNTIL 2129 THEN WOKE AND ATE DINNER W/ASSISTANCE, AMBULATED TO BED W/2 ASSIST AND SLEPT T/O THE NIGHT, NO C/O ANY KIND, SLEEPING AT THIS TIME, CALL LIGHT IN REACH, BED ALARM ACTIVE, WILL CONT TO MONITOR UNTIL REPORT GIVEN TO DAY RN.
--- NOTE | 2020-03-18 19:27 | NUR ---
a+o but challenging to communicate due to tremors, call light in reach, saline locked, rm air, bsr shared with noc nurse and pt
--- NOTE | 2020-03-19 04:26 | NUR ---
SHIFT SUMMARY NO ACUTE CHANGES THIS SHIFT, NO C/O ANY KIND, SLEPT T/O THE NIGHT & SLEEPING AT THIS TIME, CALL LIGHT IN REACH, BED ALARM ACTIVE, WILL CONT TO MONITOR UNTIL REPORT GIVEN TO DAY RN.
--- NOTE | 2020-03-19 14:03 | NUR ---
SUMMARY: 03/19/20- per chart review with Dr. Winslow, pt is still needing placement and is ready to d/c when this is found. Pt mentioned to that his family is looking for an apartment for him to live in close to them so that they can take care of him. reports that it was hard to understand the pt. Unsure where this is and which family members are looking at this option. Will need to double check with the pt on this. Pt medically stable to d/c once placement can be found for pt. [facility] left a message on [facility] requesting they call them back about the pt. This will have to occur tomorrow during business hours. -alyse
--- NOTE | 2020-03-19 19:11 | NUR ---
a+o, parkinson, down for xray of lungs due to possible aspiration, requires max assist to move from one location to another, call light in reach, saline locked, theresa watts, bsr shared with noc nurse and pt stated he required no pain medication and for the light to be turned off as departing
--- NOTE | 2020-03-20 05:07 | NUR ---
TARE MAN SUMMARY PT A/O X4, PLEASANT AND COOPERATIVE. CHRONINC TREMORS DUE TO PARKINONS ANNIA IN THE BILATERAL ARMS. DENIES PAIN AND SLEPT WELL TONIGHT. REPOISITIONING PROVIDED. VSS, NO ACUTE CHANGES. CALL LIGHT WITHIN REACH.
[2020-03-20 05:47] LABS: BASOPHILS ABSOLUTE AUTO 0.09 K/mm3 (0.00-0.23); BASOPHILS PERCENT AUTO 1 % (0-2); EOSINOPHILS ABSOLUTE AUTO 0.85 K/mm3 (0.00-0.68); EOSINOPHILS PERCENT AUTO 8 % (0-6); Hematocrit 38.5 % (37.0-53.0); Hemoglobin 12.1 g/dL (13.5-17.5); IMMATURE GRAN ABSOLUTE AUTO 0.03 K/mm3 (0.00-0.10); IMMATURE GRAN PERCENT AUTO 0 % (0-1); LYMPHOCYTES ABSOLUTE AUTO 1.63 K/mm3 (0.84-5.20); LYMPHOCYTES PERCENT AUTO 16 % (21-46); MONOCYTES PERCENT AUTO 9 % (4-13); Mean Corpuscular HGB 27.8 pg (26.0-34.0); Mean Corpuscular HGB Conc 31.4 g/dL (31.5-36.5); Mean Corpuscular Volume 88 fL (80-100); Mean Platelet Volume 8.9 fL (9.1-12.4); NEUTROPHILS PERCENT AUTO 67 % (41-73); Platelet Count 361 K/mm3 (150-400); RDW Coefficient Variation 11.9 % (11.7-14.2); RDW Standard Deviation 38.5 fL (35.1-46.3); Red Blood Cell Count 4.36 M/mm3 (4.30-5.90)
[2020-03-20 06:23] LABS: Alanine Aminotransfer (ALT/SGP 46 U/L (12-78); Albumin, Blood 2.3 g/dL (3.4-5.0); Albumin/Globulin Ratio 0.6 (0.8-1.8); Alk Phos 90 U/L (50-136); Anion Gap 3 mmol/L (6-16); Aspartate Aminotrans (AST/SGOT 30 U/L (12-37); Bilirubin, Total 0.2 mg/dL (0.1-1.0); Blood Urea Nitrogen 13 mg/dL (8-24); Bun/Creatinine Ratio 22.7 (12.0-20.0); CO2, Blood 31 mmol/L (21-32); Calcium, Blood 8.9 mg/dL (8.5-10.1); Chloride, Blood 104 mmol/L (98-108); Creatinine, Blood 0.57 mg/dL (0.60-1.20); Globulin, Blood 3.9 g/dL (2.2-4.0); Glomerular Filtration Rate >60 (60-); Glucose, Blood 92 mg/dL (70-99); Potassium, Blood 3.9 mmol/L (3.5-5.5); Sodium, Blood 138 mmol/L (136-145); Total Protein, Blood 6.2 g/dL (6.4-8.2)
--- NOTE | 2020-03-20 16:28 | NUR ---
HOME HEALTH: 03/20/20- spoke with pt today regarding him telling the doctor that his family is looking at getting him an apartment. Pt states that the apartment is a handicap apartment in [place], [place]. This is an hour away from his daughters. Pt states that family (step-sister and step- brother in law) would be getting this for him and they would either provide 24 hr care for him or another family member would. Explained to him that at this time he would need someone with him to help with all his needs and that we needs to talk with the family to make sure this is a safe discharge for him with the care and support that he will need. Asked pt. if he had name and number for these people. He stated that he could not remember it. Asked how often he talks with them, he said it was daily. Asked that next time they call that he have his nurse write down their names and numbers so that we could call and speak with them about their plan. I asked the pt why this has not been brought up in the past, he stated that the apartment just became available to rent. I am unsure if the pt has complete understanding of the type and amount of care he needs once he d/c from the hospital. Have not heard back from [facility] about their assessment of pt and [facility] have not heard back either. Got number from [facility] and will give them a call tomorrow. -alyse
--- NOTE | 2020-03-20 18:28 | NUR ---
SHIFT SUMMARY NO ACUTE CHANGES T/O SHIFT, NO COMPLAINTS OF ANY KIND. UNASYN DELIVERED ORDERED. PT UP TO CHAIR FOR BREAKFAST AND LUNCH, ASSISTED WITH EACH MEAL BY FINANCIAL ENGINEER. A&Ox4, SLOW SPEECH BUT ABLE TO COMPREHEND PT NEEDS. MEDS DELIVERED 1 AT A TIME IN APPLESAUCE, PT TOLERATED THIS WELL. PT STATED HE FEELS BETTER SINCE IV ABX HAVE BEEN STARTED. STILL CONCERNS REGARDING DISCHARGE PLANS FOR PT. [employer] CARD GRADER STATED THERE HAS BEEN TALK REGARDING PT MOVING CLOSER TO FAMILY OR GOING TO [facility]. PT IS CURRENTLY BEING FED DINNER BY FINANCIAL ENGINEER, BED ALARM ON AND CALL LIGHT IS WITHIN REACH.
--- NOTE | 2020-03-20 19:39 | NUR ---
awake at rounding. hob elevated. no noted s/s acute distress. call light in reach
--- NOTE | 2020-03-21 04:21 | NUR ---
SHIFT SUMMARY HAS BEEN RESTING QUIETLY WITH FEW INTERRUPTIONS. AWAKENED FOR MEDICATIONS - SEE MAR. VOICED ANTIBIOTICS WORKING A HE FELT LESS TIRED SINCE TAKING THEM. CALL LIGHT IN REACH.
[2020-03-21 05:20] LABS: BASOPHILS ABSOLUTE AUTO 0.09 K/mm3 (0.00-0.23); BASOPHILS PERCENT AUTO 1 % (0-2); EOSINOPHILS ABSOLUTE AUTO 0.94 K/mm3 (0.00-0.68); EOSINOPHILS PERCENT AUTO 12 % (0-6); Hematocrit 38.2 % (37.0-53.0); IMMATURE GRAN ABSOLUTE AUTO 0.03 K/mm3 (0.00-0.10); IMMATURE GRAN PERCENT AUTO 0 % (0-1); LYMPHOCYTES ABSOLUTE AUTO 1.59 K/mm3 (0.84-5.20); LYMPHOCYTES PERCENT AUTO 20 % (21-46); MONOCYTES ABSOLUTE AUTO 0.73 K/mm3 (0.16-1.47); MONOCYTES PERCENT AUTO 9 % (4-13); Mean Corpuscular HGB 27.8 pg (26.0-34.0); Mean Corpuscular HGB Conc 31.4 g/dL (31.5-36.5); Mean Corpuscular Volume 88 fL (80-100); Mean Platelet Volume 9.1 fL (9.1-12.4); NEUTROPHILS ABSOLUTE AUTO 4.58 K/mm3 (1.96-9.15); NEUTROPHILS PERCENT AUTO 58 % (41-73); Platelet Count 356 K/mm3 (150-400); RDW Coefficient Variation 11.9 % (11.7-14.2); RDW Standard Deviation 38.2 fL (35.1-46.3); Red Blood Cell Count 4.32 M/mm3 (4.30-5.90); White Blood Cell Count 7.96 K/mm3 (4.00-11.30)
[2020-03-21 05:45] LABS: Alanine Aminotransfer (ALT/SGP 41 U/L (12-78); Albumin, Blood 2.3 g/dL (3.4-5.0); Albumin/Globulin Ratio 0.6 (0.8-1.8); Alk Phos 91 U/L (50-136); Anion Gap 5 mmol/L (6-16); Aspartate Aminotrans (AST/SGOT 34 U/L (12-37); Bilirubin, Total 0.2 mg/dL (0.1-1.0); Blood Urea Nitrogen 14 mg/dL (8-24); Bun/Creatinine Ratio 23.9 (12.0-20.0); CO2, Blood 31 mmol/L (21-32); Chloride, Blood 105 mmol/L (98-108); Creatinine, Blood 0.59 mg/dL (0.60-1.20); Glomerular Filtration Rate >60 (60-); Glucose, Blood 92 mg/dL (70-99); Potassium, Blood 4.3 mmol/L (3.5-5.5); Sodium, Blood 141 mmol/L (136-145); Total Protein, Blood 6.3 g/dL (6.4-8.2)
--- NOTE | 2020-03-21 16:51 | NUR ---
: HOME HEALTH: 03/21/20- went and visited with pt and his fcttrd-ca-djf Daniela. She states that she would like to be his caregiver and that she has a handicap apartment in [place], [place]. She states that she has worked in a medical office in the area and has been a caregiver in the recent past. She would like to help the pt out and help get him closer to his daughters. Discussed with them that this helpful and we can start working on this process. Unfortantely there are many things that need to be done for this to happen. Discussed his medical care needs and she states that there are clinic over there called [facility] that are like EF that pt could receive care from. Discussed his suboxone, Daniela is aware of this medication and what it treats. Discussed that he would need a provider who could prescribe this for him over there. She stated that [facility] can do this. We would also need to find a pharmacy that could fill this medication for him. Pt states that he has used [facility] in the past so that it can be transferred easily. Discussed with them that pt has an [employer] machine woodworking sander that needs to be involved in this process since they would be the agency that would pay for his living and care needs. Informed them that I would reach out to Vaishali with [employer] to discuss this and find out what needs to be done to help move the pt towards a safe discharge. Daniela states that she could take the pt in her car and transportation would not need to be set up. She states that she is over here for a few days and will be avaible to contact to discuss this plan moving forward. They acknowledged understanding. Called Vaishali with [employer] and left message asking her to return call to discuss this update. Called and spoke with Dr. Landrum about this. Informed him that pt would be moving across the state and would not be seeing [facility] anymore. stated that the patient would need to start working on finding a provider that will take him and prescribe the medication along with a PCP. Mentioned to doctor the clinic discussed during converstation with pt and sister. Informed [facility] of this option for pt housing and d/c. Will update them as things progress. Contact information for Daniela- [phone]. Pt asked that we please work on this option so that he can be closer to his girls and so that he can get out of the hospital. He has acknowledged that he has gotten weaker since being in the hosptial and he feels that once he is out and able to move around more independently, he will get stronger. Let him know that we would work on this and keep both him and his sister updated on the process as we work through everything that needs to be done to ensure that he has a safe d/c.-alyse
--- NOTE | 2020-03-21 18:20 | NUR ---
SHIFT SUMMARY PATIENT DENIES PAIN, NAUSEA, AND SHORTNESS OF BREATH. PATIENT UP IN CHAIR FOR MEALS. UP 2 ASSIST W/ GAIT BELT TO CHAIR. WORKED WITH PT TODAY AND SPEECH THERAPY TODAY. EATING AND DRINKING WELL. FAMILY VISITED IN AFTERNOON.
--- NOTE | 2020-03-21 19:38 | NUR ---
AWAKENS DURING ROUNDS. IV FLUSHED. ASSISTED WITH PERSONAL CARE. CALL LIGHT IN REACH
--- NOTE | 2020-03-22 03:08 | NUR ---
SHIFT SUMMARY SLEEPING AT INTERVALS, LESS SNORING AND COUGHING SINCE TURNED ON SIDE. ASPIRATION PRECAUTIONS MAINTAINED. IV ANTIBIOTICS INFUSING PER APR. NO C/O VOICED. CALL LIGHT IN REACH
[2020-03-22 05:33] LABS: BASOPHILS ABSOLUTE AUTO 0.12 K/mm3 (0.00-0.23); BASOPHILS PERCENT AUTO 2 % (0-2); EOSINOPHILS ABSOLUTE AUTO 0.94 K/mm3 (0.00-0.68); EOSINOPHILS PERCENT AUTO 11 % (0-6); Hematocrit 40.2 % (37.0-53.0); Hemoglobin 12.5 g/dL (13.5-17.5); IMMATURE GRAN ABSOLUTE AUTO 0.03 K/mm3 (0.00-0.10); IMMATURE GRAN PERCENT AUTO 0 % (0-1); LYMPHOCYTES ABSOLUTE AUTO 1.78 K/mm3 (0.84-5.20); LYMPHOCYTES PERCENT AUTO 22 % (21-46); MONOCYTES ABSOLUTE AUTO 0.85 K/mm3 (0.16-1.47); MONOCYTES PERCENT AUTO 10 % (4-13); Mean Corpuscular HGB Conc 31.1 g/dL (31.5-36.5); Mean Corpuscular Volume 90 fL (80-100); Mean Platelet Volume 8.9 fL (9.1-12.4); NEUTROPHILS ABSOLUTE AUTO 4.55 K/mm3 (1.96-9.15); NEUTROPHILS PERCENT AUTO 55 % (41-73); Platelet Count 360 K/mm3 (150-400); RDW Coefficient Variation 11.9 % (11.7-14.2); RDW Standard Deviation 39.6 fL (35.1-46.3); Red Blood Cell Count 4.46 M/mm3 (4.30-5.90); White Blood Cell Count 8.27 K/mm3 (4.00-11.30)
[2020-03-22 06:04] LABS: Alanine Aminotransfer (ALT/SGP 64 U/L (12-78); Albumin, Blood 2.4 g/dL (3.4-5.0); Albumin/Globulin Ratio 0.6 (0.8-1.8); Alk Phos 94 U/L (50-136); Anion Gap 5 mmol/L (6-16); Aspartate Aminotrans (AST/SGOT 32 U/L (12-37); Bilirubin, Total 0.3 mg/dL (0.1-1.0); Blood Urea Nitrogen 14 mg/dL (8-24); CO2, Blood 31 mmol/L (21-32); Calcium, Blood 9.3 mg/dL (8.5-10.1); Chloride, Blood 105 mmol/L (98-108); Creatinine, Blood 0.64 mg/dL (0.60-1.20); Globulin, Blood 4.1 g/dL (2.2-4.0); Glomerular Filtration Rate >60 (60-); Glucose, Blood 88 mg/dL (70-99); Potassium, Blood 4.5 mmol/L (3.5-5.5); Sodium, Blood 141 mmol/L (136-145); Total Protein, Blood 6.5 g/dL (6.4-8.2)
--- NOTE | 2020-03-22 12:39 | NUR ---
CARE COORDINATION REFERRAL - CCM: 03/22/20- SPOKE WITH PT'S [employer] MANAGEMENT ADVISOR, PUNEET OLSON. UPDATED HER ON THE FAMILY MEMBER THAT WOULD LIKE TO CARE FOR PT. SHARED WITH HER WHAT THEIR PLAN WAS FOR PT'S CARE AND LIVING ARRANGEMENT. DISCUSSED WHAT NEEDS TO BE DONE WITH THEIR AGENCY TO HELP PT WITH THIS. PROVIDED PUNEET WITH CONTACT INFORMATION FOR KRYSTAL, SISTER, AND SHE WILL REACH OUT TO HER TO DISCUSS WHAT THE SISTER WILL NEED TO DO TO BECOME A PAID PROVIDER FOR THE PT. PUNEET WOULD ALSO LIKE TO DISCUSS THIS WITH YESI, WHO WORKS AT [facility] AND HAS BEEN ASSIGNED TO PT. YESI IS OUT OF THE OFFICE TODAY, SO CONVERSATION WILL HAVE TO OCCUR ONCE SHE IS BACK. UPDATED KELVIN VELAZQUEZ. -GISELE
--- NOTE | 2020-03-22 16:11 | NUR ---
Spiritual care visit conducted. Patient tells me about his strength and clarity returning as his pneumonia is treated. Patient then tells me about his financial concerns and how it may effect his discharge plan. I provide therapeutic listening and prayer. Patient responds well and shows signs of reduced stress. I then meet with Jeanne from Care Management who tells me that she is aware of the situation but will visit patient and give him some direction and assure him that they will still be working to on his discharge plan. I will continue to remain available to help patient with the emotional/spiritual aspects of his medical issues and his long hospitalization.
--- NOTE | 2020-03-22 18:36 | NUR ---
SHIFT SUMMARY PT IS A&O AND IS ABLE TO MAKE NEEDS KNOWN. PT IS 2 PERSON PIVOT TRANSFER. PT WAS UP FOR PART OF SHIFT. PT SPENT PART OF SHIFT ON PHONE DEALING WITH PERSONAL ISSUES. PT TOOK ALL PO MEDICATION IN APPLESAUCE THIS SHIFT WITH NO ISSUES. PT CURENTLY IN BED. CALL LIGHT W/IN REACH.
[2020-03-23 05:09] LABS: BASOPHILS ABSOLUTE AUTO 0.11 K/mm3 (0.00-0.23); BASOPHILS PERCENT AUTO 2 % (0-2); EOSINOPHILS ABSOLUTE AUTO 0.72 K/mm3 (0.00-0.68); EOSINOPHILS PERCENT AUTO 12 % (0-6); Hematocrit 39.2 % (37.0-53.0); Hemoglobin 12.5 g/dL (13.5-17.5); IMMATURE GRAN ABSOLUTE AUTO 0.01 K/mm3 (0.00-0.10); IMMATURE GRAN PERCENT AUTO 0 % (0-1); LYMPHOCYTES ABSOLUTE AUTO 1.89 K/mm3 (0.84-5.20); LYMPHOCYTES PERCENT AUTO 31 % (21-46); MONOCYTES ABSOLUTE AUTO 0.63 K/mm3 (0.16-1.47); MONOCYTES PERCENT AUTO 10 % (4-13); Mean Corpuscular HGB 28.2 pg (26.0-34.0); Mean Corpuscular HGB Conc 31.9 g/dL (31.5-36.5); Mean Corpuscular Volume 88 fL (80-100); Mean Platelet Volume 8.8 fL (9.1-12.4); NEUTROPHILS ABSOLUTE AUTO 2.82 K/mm3 (1.96-9.15); NEUTROPHILS PERCENT AUTO 46 % (41-73); Platelet Count 367 K/mm3 (150-400); RDW Coefficient Variation 11.9 % (11.7-14.2); RDW Standard Deviation 38.2 fL (35.1-46.3); Red Blood Cell Count 4.44 M/mm3 (4.30-5.90); White Blood Cell Count 6.18 K/mm3 (4.00-11.30)
[2020-03-23 05:36] LABS: Alanine Aminotransfer (ALT/SGP 37 U/L (12-78); Albumin, Blood 2.3 g/dL (3.4-5.0); Albumin/Globulin Ratio 0.6 (0.8-1.8); Alk Phos 94 U/L (50-136); Anion Gap 6 mmol/L (6-16); Aspartate Aminotrans (AST/SGOT 29 U/L (12-37); Bilirubin, Total 0.3 mg/dL (0.1-1.0); Blood Urea Nitrogen 15 mg/dL (8-24); Bun/Creatinine Ratio 24.8 (12.0-20.0); CO2, Blood 29 mmol/L (21-32); Calcium, Blood 9.1 mg/dL (8.5-10.1); Chloride, Blood 106 mmol/L (98-108); Globulin, Blood 4.1 g/dL (2.2-4.0); Glomerular Filtration Rate >60 (60-); Glucose, Blood 91 mg/dL (70-99); Sodium, Blood 141 mmol/L (136-145); Total Protein, Blood 6.4 g/dL (6.4-8.2)
--- NOTE | 2020-03-23 06:06 | NUR ---
SHIFT SUMMARY A/O, ABLE TO MAKE NEEDS KNOWN. COOPERATIVE WITH CARE. CALLS AND ANSWERS QUESTIONS APPROPRIATELY. NO C/O PAIN/DISCOMFORT. APPEARED TO REST MUCH OF THE NIGHT. ATTENDS IN PLACE; ROUTINE CHECKS, DOES UTILIZE URINAL AND BSC AT TIMES. NO ACUTE CHANGES NOTED OVERNIGHT. AWAITING PLACEMENT. BED REMAINED IN LOWEST POSITION. CALL LIGHT AND BELONGINGS WITHIN REACH. CONTINUE WITH CURRENT PLAN OF CARE. REPORT TO ONCOMING RN.
--- NOTE | 2020-03-23 18:17 | NUR ---
SHIFT SUMMARY PT A&O AND ABLE TO MAKE NEEDS KNOWN. PT WAS FEED BY STACY NORWOOD FOR BREAKFAST AND LUNCH. EACH FEEDING TOOK APROX 50 MINUTES AND WAS UP IN CHAIR FOR MEALS. PT IS 2 PERSON STAND AND PIVOT. PT ABLE TO USE URINAL WITH ASSISTANCE. PT CURENTLY IN BED SLEEPING, CALL LIGHT W/IN REACH.
--- NOTE | 2020-03-24 03:55 | NUR ---
SHIFT SUMMARY A/O, ABLE TO MAKE NEEDS KNOWN. COOPERATIVE WITH CARE. CALLS AND ANSWERS QUESTIONS APPRORIATELY. C/O PAIN/DISCOMFORT TO L SCIATICA; MEDICATED PER EMAR. APPEARED TO REST MUCH OF NIGHT. IV ABX INFUSED WITHOUT COMPLICATIONS. NO OTHER ACUTE CHANGES NOTED OVERNIGHT. AWAITS PLACEMENT. BED REMAINED IN LOWEST POSITION. CALL LIGHT AND BELONGINGS WITHIN REACH. CONTINUE WITH CURRENT PLAN OF CARE. REPORT TO ONCOMING RN.
[2020-03-24 05:36] LABS: BASOPHILS PERCENT AUTO 2 % (0-2); EOSINOPHILS ABSOLUTE AUTO 0.67 K/mm3 (0.00-0.68); EOSINOPHILS PERCENT AUTO 12 % (0-6); Hematocrit 38.3 % (37.0-53.0); Hemoglobin 12.2 g/dL (13.5-17.5); IMMATURE GRAN ABSOLUTE AUTO 0.01 K/mm3 (0.00-0.10); IMMATURE GRAN PERCENT AUTO 0 % (0-1); LYMPHOCYTES ABSOLUTE AUTO 1.93 K/mm3 (0.84-5.20); LYMPHOCYTES PERCENT AUTO 35 % (21-46); MONOCYTES ABSOLUTE AUTO 0.55 K/mm3 (0.16-1.47); MONOCYTES PERCENT AUTO 10 % (4-13); Mean Corpuscular HGB 28.4 pg (26.0-34.0); Mean Corpuscular HGB Conc 31.9 g/dL (31.5-36.5); Mean Corpuscular Volume 89 fL (80-100); NEUTROPHILS ABSOLUTE AUTO 2.24 K/mm3 (1.96-9.15); NEUTROPHILS PERCENT AUTO 41 % (41-73); Platelet Count 359 K/mm3 (150-400); RDW Coefficient Variation 11.9 % (11.7-14.2); RDW Standard Deviation 38.5 fL (35.1-46.3)
[2020-03-24 05:57] LABS: Anion Gap 4 mmol/L (6-16); Blood Urea Nitrogen 14 mg/dL (8-24); Bun/Creatinine Ratio 23.1 (12.0-20.0); CO2, Blood 31 mmol/L (21-32); Calcium, Blood 8.6 mg/dL (8.5-10.1); Chloride, Blood 106 mmol/L (98-108); Creatinine, Blood 0.61 mg/dL (0.60-1.20); Glomerular Filtration Rate >60 (60-); Glucose, Blood 87 mg/dL (70-99); Potassium, Blood 4.1 mmol/L (3.5-5.5); Sodium, Blood 141 mmol/L (136-145)
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
--- NOTE | 2020-03-24 18:23 | NUR ---
SHIFT SUMMARY PT IS A&OX4. ABLE TO MAKE NEEDS KNOWN. PT IS 2 PERSON ASSIST WITH GATE BELT. PT TAKE PILLS IN APPLE SAUCE ONE AT A TIME. PT WAS UP AT 90 DEG FOR ALL MEALS, IT TOOK APROX 45-55 MINUTES TO FEED THE PT MEALS. PT DENIES P/N/V AT THIS TIME. PT IS CURENTLY IN BED LISTENING TO MUSIC. CALL LIGHT W/IN REACH.
--- NOTE | 2020-03-25 07:43 | NUR ---
Philippe slept very well overnight after HS medications. He was able to swallow meds two at a time in applesauce without difficulty. resisted turning once during night, but was happy when both hips were floated, and feet elevated. Initially had a complainat of left lateral thigh pain, but that resolved with his HS dose of valium.
--- NOTE | 2020-03-25 18:10 | NUR ---
summary PT IS A/O X3, PLEASANT/COOPERATIVE AFFECT. HX PARKINSONS, AWAITING ASSISTED LIVING PLACEMENT. BUE TREMULOUS, REQUIRES ASSIST w MEALS & FLUIDS. IV ANTIBX CONTINUE R/T ASP PNEUM. HE IS OOB FOR MEALS, HAS BEEN UP IN RECLINER MOST OF DAY. PARTICIPATE w PHYTHER TODAY, 1-2 ASSIST TO CHAIR. VSS.
--- NOTE | 2020-03-26 03:46 | NUR ---
PATIENT UP IN CHAIR UNTIL 2200. USED BEDSIDE COMMODE WITH TWO STRONG ASSIST TO HAVE MEDIUM FORMED BOWEL MOVEMENT BEFORE BED. COMPLAINED TWICE OF (MOSTLY) LEFT THIGH MUSCLE SPASMS. BOTH TIMES RESOLVED WITH HIS SCHEDULED MEDS AND TYLENOL
--- NOTE | 2020-03-26 15:28 | NUR ---
SUMMARY PT CONTINUES PLEASANT/COOPERATIVE. ASSITED UP TO RECLINER @ BF & STAYED UP UNTIL AFTER LUNCH THEN FATIGUED & REQUESTED BACK TO BED.. HE IS A/O X4, BUE PARKINSONS TREMOR THAT IS @ X'S SIGNIFICANT. HE REQUIRES ASSIST w MEALS & FLUIDS. BLE STIFF/RIGID, DOES NOT BR WT WELL, 2 ASSIST STAND/PIVOT. HX BLE NEUROPATHY, THIS AM APPROX 1+ EDEMA ANKLES. IV ANTIBX CONT R/T ASP PNEUM. VSS AFEBRILE, ON RA, LUNGS CLEAR THIS AM. HE CONTINUES TO AWAIT ASSISTED LIVING ARRANGEMENTS.
--- NOTE | 2020-03-27 05:11 | NUR ---
GOOD SPIRITS OVERNIGHT. SLEPT WELL BETWEEN WAKING FOR MEDICATIONS AND REPOSITIONING. A&OX3, DRINKING NECTAR THICK FLUIDS WELL. LIKES TO DRINK AFTER MEDS. MINIMAL COMPLAINTS OF PAIN OVERNIGHT WERE RESOLVED WITH HIS SCHEDULED MEDICATIONS
--- NOTE | 2020-03-27 15:38 | NUR ---
CCM: 03/27/20- received call from Vaishali with [employer], she has spoken with pt's family and they are agreeable to taking care of him. She reviewed with pt what the requirements are for her to become a state approved caregiver. Vaishali had been trying to get a hold of the pt to get verbal confirmation that this is his wishes. Provided her with his phone number. Met with pt, he stated that he had spoken with Vaishali and let her know that he is agreeable with the plan for his sister to take him to [facility] and be his caregiver. She will be over here until Friday per Black. -alyse
--- NOTE | 2020-03-27 15:52 | NUR ---
Spiritual care visit conducted. Patient tells me about a new ray of hope in placement and that he is hopeful something will come of it. Patient shares his continued struggle with forgiveness. We discuss his misty and what it might say about it forgiveness. He also shares some very healthy perspective on hope appreciative he is about being in the hospital here as opposed to living on the streets of [facility] with his Parkinson's Disease. I provide pastoral direct selling counselor, recitaion of scripture, companionship and prayer. Patient responds well and shows signs of catharsis and greater larissa. I will continue to remain available to patient and family
--- NOTE | 2020-03-27 18:24 | NUR ---
PATIENT IS ALERT AND ORIENTED AND COOPERATIVE WITH CARE. PAIN TREATED PER EMAR. PATIENT UP TO THE CHAIR FOR MOST OF THE DAY. WORKED WITH PHYSICAL THERAPY. NO NEW COMPLAINTS TODAY. WILL CONTINUE TO MONITOR
--- NOTE | 2020-03-28 06:28 | NUR ---
SHIFT SUMMARY PATIENT ALERT AND ORIENTED. HAD NO COMPLAINTS OF PAIN. SLEPT WELL OVERNIGHT. NO ACUTE ISSUES NOTED. IV PATENT AND FLUSHED. BED IN LOWEST POSITION WITH WHEELS LOCKED AND ALARM ON. CALL LIGHT WITHIN REACH. REPORT GIVEN TO ONCOMING RN.
--- NOTE | 2020-03-29 06:41 | NUR ---
TOBACCO CLOTH RECLAIMER SUMMARY PT A/O X4, SLEPT WELL TONIGHT. SEVERE PARKINSON'S IN BILATERAL ARMS. ROOM AIR. TAKES MEDS IN APPLESAUCE. NO ACUTE CHANGES. BED ALARM IN PLACE, CALL LIGHT WITHIN REACH.
--- NOTE | 2020-03-29 13:59 | NUR ---
Spiritual care visit conducted. Patient immediately tells me that he is open to hear any discharge ideas from anyone at this point. He still maintains his gratitude for being in the hospital and appreciates the care he is receiving. I read a reflection this sports writer authored that was inspired by the patient. The reflection will be in the employee bulletin. Patient states that he is honored to have something that he said used to encourage someone else. I ask patient to tell me [place] fishing stories which always seem to uplift the patient. He shares stories that are commical and have us both laughing. I provide therapeutic listening, companionship and prayer. Patient responds well and shows signs of an elevated mood. I will continue to remain available to patient and family.
--- NOTE | 2020-03-29 17:33 | NUR ---
PT HAS BEEN AOX4 AND COOPERATIVE OF CARE. PT WAS ABLE TO SIT UP FOR QUITE AWHILE TODAY AND DID WELL. PT DOESN'T GET ANY RELIEF FROM HIS TREMORS AND THIS SEEMS TO MAKE HIM TIRED. PT HAS CALL LIGHT WITHIN REACH AND DENIES ANY PAIN AT THIS TIME. WILL CONTINUE TO MONITOR.
--- NOTE | 2020-03-30 07:57 | NUR ---
SHIFT SUMMARY: A&OX3, ASPIRATION PRECAUTIONS MAINTANED. TOLERATING A PUREED DIET WITH NECTAR THICH LIQUIDS WELL. ABLE TO DRINK FLUID INDEPENADANTLY WHEN SET UP. LAST BM WAS 03/28/20, NEEDS ASSISTANCE TO VOID IN THE URINAL. BED ALARM IS ON FOR SAFETY.
--- NOTE | 2020-03-30 16:36 | NUR ---
03/30/20- Met with pt and updated him that we would be discharging him tomorrow into his sister, Daniela's care. Asked for her address for where he will be going so that we can have DME delivered to the home. He provided the address [address], [place], [place]. Pt would like to have a wheelchair and bed. Will have wheelchair delivered here to the hosptial and the bed delivered by [facility] to the home. Igor from [facility] will helped with this process. Dr. Landrum has written 3 rx for Buprenorphine for 3 months until the pt is est. care. Those have been left in pt's chart in locked box. Reviewed with pt the plan for d/c, the contact information for new PCP, Dr. Singleton with [facility] for appt 04/18/20 @ 830am. Gave the pt the packet that was filled out and faxed to [facility] to take with him. Left these documents in lock box for when he d/c. Tried to find the place that pt will be moving too on [address], was not successful. Went and discussed this with pt. He stated that they will live on the property of her uncle and he may have gotten the address wrong. Share my concerns about address and that I haven't been able to get a hold of sister today and she is not here for visiting hours as she has been for the last week and half. Pt said that everything is ok and he is not worried. Discussed with pt that we would like to discharge him tomorrow morning since he will have a long drive to [place] and would like him to get to the new place in the daylight. Asked that he try to get a hold of his sister and let her know that she can come earlier than visiting hours since he will be discharging tomorrow. He acknowleged understanding and said that he would contact her and let her know the plan. Contacted Vaishali with [employer] to update her on the plan for discharge, the address that was provided to me and that DME was being ordered for the pt. Vaishali stated that she will wait until Friday to transfer his case to the new area to ensure that pt has discharged and moved. Black is aware of the conversation and that he will get a new disability case manager once he moves over there. -amanuelw
--- NOTE | 2020-03-30 17:57 | NUR ---
SHIFT SUMMARY- PT IS A/O, PLESANT AND COOPERATIVE. HE IS EATING AND DRINKING WELL. HE WORKED WITH PT AND OT TODAY AND TOLERATED WELL. HE HAD A BM THIS SHIFT. HE IS USING THE URINAL. HIS BED IS IN THE LOW POSITION AND CALL LIGHT IS WITHIN REACH.
--- NOTE | 2020-03-31 06:02 | NUR ---
SHIFT SUMMARY: PATIENT IS A&OX3, NO REPORTS OF PAIN OR DISCOMFORT. VSS CALLING FOR ASSISTANCE WITH URINAL AND IN CONTINENT THIS SHIFT. TOLERATING PUREED DIET WITH NECTAR THICK LIQUIDS WELL.
[2020-03-31] MEDS ORDERED: AMPDEX5 PO (11:43)
[2020-03-31] MEDS ORDERED: DIAZ10 PO (11:44)
[2020-03-31] MEDS ORDERED: COLACE100 MG PO (11:45)
[2020-03-31] MEDS ORDERED: FAMO20 PO (11:45)
[2020-03-31] MEDS ORDERED: B-1100 M1 PO (11:46)
[2020-03-31] MEDS ORDERED: FOLI1 PO (11:46)
[2020-03-31] MEDS ORDERED: TRAZ50 PO (11:47)
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
--- NOTE | 2020-03-31 17:20 | NUR ---
SUMMARY PT IS A/O X4. HX PARKINSONS. BUE TREMORS THAT LIMIT HIS ABILITY TO EAT OR DRINK. BLE WEAKNESS/STIFFNESS THAT LIMITS AMBULATION/ADLS. HE IS MEDICALLY STABLE, DR KENDRICK & SALLY CARE MANAGERS ARE ATTEMPTING TO ARRANGE SAFE D/C w CAREGIVERS OR ASSISTED LIVING. D/C ORDERS WERE PLACED TODAY HOWEVER PLAN FELL THROUGH, D/C CANCELLED PER CARE MANAGERS. PT IS PLEASANT/COOPERATIVE. UP w 2 ASSIST TO CHAIR. VSS.
--- NOTE | 2020-04-01 03:26 | NUR ---
AIRCRAFT ENGINE MECHANIC OVERHAUL SUMMARY PT A&OX3, ABLE TO MAKE NEEDS KNOWN. PLEASANT AND COOPERATIVE TO CARE. HX OF PARKINSONS, PT HAD BUE TREMORS, WEAKNESS TO BLE. PT IS A 1-2P TO [facility]. NO C/O PAIN OR ANY DISCOMFORT THIS SHIFT. NO C/O CP, SOB, OR N&V. PT CALM AND RESTED IN BED T/O SHIFT. NO ACUTE CHANGES NOTED TO PT. BED AT LOWEST POSITION. CALL LIGHT WITHIN REACH.
--- NOTE | 2020-04-01 19:32 | NUR ---
SHIFT SUMMARY: NO ACUTE CHANGES TO REPORT THIS SHIFT. PT A&O; CALM AND COOPERATIVE WITH CARE. ASPIRATION PRECAUTIONS; MEDS WHOLE IN APPLE SAUCE; NECTAR-THICK LIQUIDS. AWAITING PLACEMENT. REPORT GIVEN TO ONCOMING RN.
--- NOTE | 2020-04-02 03:58 | NUR ---
PRICK STITCHER SUMMARY PT A&OX3, ABLE TO MAKE NEEDS KNOWN. PLEASANT AND COOPERATIVE TO CARE. NO ACUTE CHANGES NOTED TO PT THIS SHIFT. CALM AND RESTED IN BED T/O SHIFT. NO C/O PAIN OR ANY DISCOMFORT. DENIES CP, SOB, OR N&V. PT CONT TO BUE TREMORS AND WEAKNESS TO BLE, PT REQUIRES 1-2P ASSIST WITH TRANSFERS AND W/ BED MOBILITY. HX OF PARKINSONS. BED AT LOWEST POSITION. CALL LIGHT WITHIN REACH. AWAITING PLACEMENT.
--- NOTE | 2020-04-02 19:27 | NUR ---
SHIFT SUMMARY: NO ACUTE EVENTS TO REPORT THIS SHIFT. PT A&O; CALM AND COOPERATIVE WITH CARE. ASPIRATION PRECAUTIONS; PO MEDS WHOLE IN APPLE SAUCE. PT & OT FOLLOWING. AWAITING PLACEMENT. REPORT GIVEN TO ONCOMING RN.
--- NOTE | 2020-04-03 04:19 | NUR ---
INFORMATION STRATEGIST SUMMARY PT A&OX3, ABLE TO MAKE NEEDS KNOWN, PLEASANT AND COOPERATIVE TO CARE. NO C/O PAIN OR ANY DISCOMFORT T/O SHIFT. DENIES CP, SOB, OR N&V. NO ACUTE CHANGES NOTED TO PT, CALM AND RESTED T/O SHIFT. BED AT LOWEST POSITION. CALL LIGHT WITHIN REACH. AWAITING PLACEMENT.
--- NOTE | 2020-04-03 14:11 | NUR ---
Spiritual care visit conducted. Patient immediately tells me about how excited he was that he was able to walk for six steps today. Patient then talks about a few of the set backs and some possible solutions that could be upcoming. Patient shares some stories around the subject of self-determination and how he gains strength from his misty to see past where he is to press hard toward new goals. He also tells me that he does not want his vfocde-it-wzn, Hui Stallings to have any information about him or his medical information (I pass this information on to Candido in the medical floor RN station). We also discuss the power of hope. I listen empathically, reinforce helpful attitudes and practices and provide spiritual guidance, companionship and prayer. Patient responds well and shows signs of increased determination and hope. provide companionship an
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
--- NOTE | 2020-04-03 18:35 | NUR ---
Shift Summary Pleasant and cooperative with care. Calls appropriately. Up in recliner for most of day. Moderate PO intake, appetite good. Denies pain. Patient requesting "[place]" not receive any information RE patient. saddle tree stitcherENMA [place]. Worked with PT/OT. No acute changes. WCTM.
--- NOTE | 2020-04-04 08:03 | NUR ---
SUMMARY: PT A/OX4, CALLS APPROPRIATELY AND SPECIFIES NEEDS. HE'S PLEASANT AND COOPERATIVE W/CARE AND TURN SCHEDULE MAINTAINED. PT IS OCCASIONALLY INCONTINENT WHILE SLEEPING W/ATTENDS CHANGED PRN. PILLS TOLERATED CRUSHED IN APPLESAUCE AND FEEDER ASSIST REQUIRED D/T PARKINSONIAN TREMOR. HE DENIED NEEDING ANY PRN MEDS AND SLEPT MAJORITY OF SHIFT. NO ACUTE CHANGES, VSS AND AFEBRILE. WCTM AND REPORT TO DAY RN.
--- NOTE | 2020-04-04 15:14 | NUR ---
04/04/20- spoke with pt today about his situation. He states that he does not want to go to a SNF or long-term care facility because he will "curl up and " in one. He wants to be in a place on his own with a caregiver. Discussed the concerns with this plan, especially with the caregiver he has chosen, the fact that she has not been to see him since they found out his money is frozen on his debit card. Talked with him regarding the type of care that he does need and that he needs to contact his [employer] family independence case manager since they will be potentially be paying for his housing. Received call from Vaishali with [employer]. We discussed both of our converstations with Black today. We both have the same concerns regarding his plan for care. She discussed with him how things will work moving forward with their agency and how they will pay for his housing. Vaishali stated that Black was agreeable to go to an Adult Foster home in [place] or close to there. She has found one facility interested in him and asked that a packet be emailed to [email or web address] Attn: Nancy. Asked [facility] to help get this packet emailed. Vaishali will cont. to call other places for placement -kw
--- NOTE | 2020-04-04 15:58 | NUR ---
Spiritual care visit conducted. Patient explains about his frustrations again today with trying to make phone calls and be on hold while dealing with his Parkinson's disease. I provide pastoral mitochondrial disorders counselor, companionship and prayer. Patient responds well and shows shigns of reduced stress.
--- NOTE | 2020-04-04 18:33 | NUR ---
Shift Summary Worked with therapy today. Up in chair for a few hours. Denies any pain/discomfort. Cooperative and pleasant to work with. Appetite is good. No acute changes or concerns, WCTM.
--- NOTE | 2020-04-04 19:01 | NUR ---
Shift Summary Had uneventful day today. Up in chair for lunch. Continent while awake, make needs known. Feeder, appetite is great. Denies pain, nausea, vomiting. 1-2 p transfers from chair to bed. Baseline tremors, hx parkinsons. WCTM.
--- NOTE | 2020-04-05 07:54 | NUR ---
SUMMARY: PT A/OX4, CALLS APPROPRIATELY AND SPECIFIES NEEDS. HE'S 2 PERSON ASSIST OOB BUT SLEPT MAJORITY OF SHIFT. PT AWOKE FOR MEDS AND CARE BUT DENIED PAIN AND ALL OTHER COMPLAINTS. REPOSITION ASSIST PROVIDED AND ATTENDS CHANGE PRN FOR INCONTINENCE. PT ALSO ASISSTED W/URINAL AND BED COLÓN WHEN REQUESTED. PILLS TOLERATED W/APPLESAUCE AND FEEDER ASSIST REQUIRED. SEVERE PARKINSONIAN TREMORS PERSIST. PT IS MEDICALLY STABLE W/PLACEMENT PENDING. NO ACUTE CHANGES, VSS/AFEBRILE. WCTM AND REPORT TO DAY RN.
--- NOTE | 2020-04-05 18:40 | NUR ---
ALERT. ORIENTED. COOPERATIVE. BUE TREMORS. IV D'C. ABLE TO MAKE NEEDS KNOWN. UNLABORED RESPIRATIONS. ON SCHEDULED PAIN MEDS. HAS DENIED ANY PAIN. AWAITING PLACEMENT. TM
--- NOTE | 2020-04-06 04:10 | NUR ---
SHIFT SUMMARY PATIENT HAD NO ACUTE CHANGES OBSERVED. AXOX 3 AND BEDREST. TAKES MEDICATION X ONE EACH IN APPLESAUCE. NO IV ACCESS. DENIES PAIN, SOB, AND N/V. VSS/AFEBRILE. BASELINE BUE TREMORS WITH HX PARKINSON. CALL LIGHT IN REACH. BED IN LOWEST POSITION. WILL CONTINUE TO MONITOR UNTIL DAY SHIFT NURSE ASSUMES CARE.
--- NOTE | 2020-04-06 18:42 | NUR ---
SHIFT SUMMARY ANDREA GOT UP TO A CHAIR TODAY WITH AO2 AND GAIT BELT. HAD LARGE BM AFTER ENEMA. GOOD APPETITE, REQUIRED SOME ASSISTANCE. TOOK PILLS WELL WITH 1 AT A TIME IN APPLESAUCE, ASPIRATION PRECAUTIONS FOLLOWED. VOIDED IN URINAL. STILL VERY STIFF AND SPASTIC BUT EAGER TO GET UP OOB. CALL LIGHT IN REACH, TM
--- NOTE | 2020-04-07 03:53 | NUR ---
SHIFT SUMMARY PATIENT HAD NO ACUTE CHANGES OBSERVED. AXOX 3 AND TWO ASSIST STAND PIVOT TO BSC. TAKES MED X ONE EACH IN APPLESAUCE WITH ASSISTANCE. BASELINE BUE TREMORS WITH HX OF PARKINSON. NO IV ACCESS. DENIES PAIN, SOB, AND N/V. VSS/AFEBRILE. CONTINUED BOWEL CARE MEDICATION PRN. CALL LIGHT IN REACH. BED IN LOWEST POSITION. WILL CONTINUE TO MONITOR UNTIL DAY SHIFT NURSE ASSUMES CARE.
--- NOTE | 2020-04-07 13:37 | NUR ---
04/07/20- ATTEMPTED TO CONTACT PUNEET WITH [employer] TO GET AN UPDATE ON FOSTER CARE HOMES SHE IS LOOKING INTO. DIXIEOM. -MANDYW 04/06/20- CALLED PT'S [employer] AGRICULTURAL ADVISER FOR UPDATE ON PLACEMENT AND TO SEE IF ANY FACILITY HAS ACCEPTED THE PATIENT. LMOM. PER CHART, PT HAS HAD TROUBLE WITH CONSTIPATION, BOWEL CARE WILL BE STARTED PER DR. HAQUE. -MANDYW
--- NOTE | 2020-04-07 18:36 | NUR ---
SHIFT SUMMARY ANDREA GOT TYLENOL FOR HIS CHRONIC BACK PAIN TODAY. STILL CONSTIPATED, GOT ALL SCHEDULED AND PRN LAXATIVES AND ENEMA AND HAD BM IN BSC. GOT UP TO CHAIR WITH PT AND GOT TO BSC WITH AO2, TOO TIRED TO GO BACK TO BED, SO HE WAS A SIT TO STAND TRANSFER. ATE ALL MEALS WELL WITH FEED ASSIST. TOOK PILLS 1 AT A TIME WITH APPLESAUCE WITH NO PROBLEMS. CALL CAN IN REACH, WCTM
--- NOTE | 2020-04-08 05:16 | NUR ---
SHIFT SUMMARY: VSS. AFEB. AAOX4. PLEASANT AND COOPERATIVE. ABLE TO COMMUNICATE NEEDS. PRN STOOL SOFTENERS GIVEN W/ NO RESULTS YET TONIGHT. BT ACTIVE X 4. SARAH PO INTAKE. + FLATUS. ABD SOFT, NONTENDER, NONDISTENDED. BASELINE MUSCLE TREMORS/SPASMS OF BUE. GREATER WEAKNESS OF LEFT UPPER AND LOWER EXTREMITIES COMPARED TO RIGHT. SLEEPING WELL FOR MOST OF THE NIGHT. AROUSES EASILY. NO ACUTE CONCERNS OVERNIGHT. WCTM.
--- NOTE | 2020-04-08 17:24 | NUR ---
SHIFT SUMMARY- PT A/OX3. PT UP TO CHAIR WITH 2 STAND PIVOT ASSIST. PT PLEASANT AND COOPERATIVE. PT REPORTS CHRONIC PAIN TO LEFT LEG. PT WITH NOTED BUE TREMORS RELATED TO PARKINSONS. LS CLEAR/ DIMINISHED, ON RA. HRR. PT DENIES ANY NEW COMPLAINTS TODAY. PT CONT TO AWAIT PLACEMENT. NO BM TODAY BUT PRN'S GIVEN.
--- NOTE | 2020-04-09 06:10 | NUR ---
SHIFT SUMMARY: VSS. AFEB. AAOX3. ABLE TO COMMUNICATE NEEDS. CONT W/BUE TREMORING, INCREASING W/ PURPOSEFUL MOVEMENT. PT PERFORMED OWN ORAL CARE W/ SET UP ASSIST. ABLE TO ACCESS DRINKING CUPS INDEPENDENTLY FROM BED SIDE TABLE. CONTINENT OF URINE. BASELINE L SIDED WEAKNESS NOTED. PT APPEARS TO HAVE SLEPT WELL OVERNIGHT W/ NO ACUTE CHANGES.
--- NOTE | 2020-04-09 16:35 | NUR ---
SHIFT SUMMARY- PT A/OX3, PLEASANT AND COOPERATIVE. PT CONTINUES TO AWAIT PLACEMENT. NO NEW COMPLAINTS TODAY. LS CLEAR/ DIMINISHED, ON RA. OCCASIONAL MOSIT NPC. PT UP TO CHAIR WITH 1-2 ASSIST. TREMORS TO BUE R/T PARKINSONS, PT NEEDS ASSISTANCE WITH EATING AT TIMES. STILL NO BM TODAY BUT BOWEL MEDS GIVEN. NO OTHER ACUTE CHANGES THIS SHIFT.
--- NOTE | 2020-04-10 05:27 | NUR ---
SHIFT SUMMARY- PT. A&O WITH PARKINSONS. HAD NO ACUTE EVENTS OVERNIGHT. APPEARED TO HAVE RESTED COMFORTABLY T/O THE NIGHT, NO APPARENT DISTRESS NOTED. PT. CONT/INCONT, USED URINAL IN BED AND ATTENDS IN PLACE. MEDICATIONS TAKEN ONE AT A TIME WITH APPLESAUCE, TOLERATES WELL. DENIED ANY NEEDS DURING THE NIGHT AND NO COMPLAINTS OF PAIN OR DISCOMFORT. VSS. CALL LIGHT WITHIN REACH AND SIDE RAILS UPX2. WILL CONT TO MONITOR.
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
--- NOTE | 2020-04-10 17:51 | NUR ---
PATIENT IS ALERT AND OREINTED AND COOPERATIVE WITH CARE. NO C/O PAIN. PATIENT GOT UP TO THE RECLINER TODAY. HE HAS A GOOD APPETITE. NO NEW COMPLAINTS TODAY. WILL CONTINUE TO MONITOR.
--- NOTE | 2020-04-11 04:31 | NUR ---
SHIFT SUMMARY A/O, ABLE TO MAKE NEEDS KNOWN. COOPERATIVE WITH CARE. CALLS AND ANSWERS QUESTIONS APPROPRIATELY. NO C/O PAIN/DISCOMFORT. APPEARED TO REST T/O NIGHT. ROUTINE ATTENDS CHECKS AND TURNING; UTILIZES URINAL AT TIMES. NO ACUTE CHANGES NOTED OVERNIGHT. BED REMAINS IN LOWEST POSITION; ALARM ON. CALL LIGHT AND BELONGINGS WITHIN REACH. AWAITING PLACEMENT. CONTINUE WITH CURRENT PLAN OF CARE. REPORT TO ONCOMING RN.
[2020-04-11 05:30] LABS: BASOPHILS ABSOLUTE AUTO 0.09 K/mm3 (0.00-0.23); BASOPHILS PERCENT AUTO 1 % (0-2); EOSINOPHILS ABSOLUTE AUTO 1.25 K/mm3 (0.00-0.68); EOSINOPHILS PERCENT AUTO 17 % (0-6); Hematocrit 40.3 % (37.0-53.0); Hemoglobin 12.9 g/dL (13.5-17.5); IMMATURE GRAN ABSOLUTE AUTO 0.03 K/mm3 (0.00-0.10); IMMATURE GRAN PERCENT AUTO 0 % (0-1); LYMPHOCYTES PERCENT AUTO 22 % (21-46); MONOCYTES ABSOLUTE AUTO 0.65 K/mm3 (0.16-1.47); MONOCYTES PERCENT AUTO 9 % (4-13); Mean Corpuscular HGB 27.7 pg (26.0-34.0); Mean Corpuscular Volume 87 fL (80-100); Mean Platelet Volume 10.3 fL (9.1-12.4); NEUTROPHILS ABSOLUTE AUTO 3.87 K/mm3 (1.96-9.15); NEUTROPHILS PERCENT AUTO 51 % (41-73); Platelet Count 207 K/mm3 (150-400); RDW Coefficient Variation 13.4 % (11.7-14.2); RDW Standard Deviation 42.4 fL (35.1-46.3); Red Blood Cell Count 4.66 M/mm3 (4.30-5.90); White Blood Cell Count 7.59 K/mm3 (4.00-11.30)
[2020-04-11 05:59] LABS: Alanine Aminotransfer (ALT/SGP 32 U/L (12-78); Albumin, Blood 2.8 g/dL (3.4-5.0); Albumin/Globulin Ratio 0.7 (0.8-1.8); Alk Phos 99 U/L (50-136); Anion Gap 6 mmol/L (6-16); Aspartate Aminotrans (AST/SGOT 31 U/L (12-37); Bilirubin, Total 0.4 mg/dL (0.1-1.0); Blood Urea Nitrogen 16 mg/dL (8-24); Bun/Creatinine Ratio 21.3 (12.0-20.0); CO2, Blood 29 mmol/L (21-32); Calcium, Blood 8.9 mg/dL (8.5-10.1); Chloride, Blood 106 mmol/L (98-108); Creatinine, Blood 0.75 mg/dL (0.60-1.20); Globulin, Blood 3.8 g/dL (2.2-4.0); Glomerular Filtration Rate >60 (60-); Glucose, Blood 89 mg/dL (70-99); Magnesium, Blood 1.9 mg/dL (1.6-2.4); Phosphorus, Blood 4.4 mg/dL (2.5-4.9); Potassium, Blood 4.1 mmol/L (3.5-5.5); Sodium, Blood 141 mmol/L (136-145); Total Protein, Blood 6.6 g/dL (6.4-8.2)
--- NOTE | 2020-04-11 18:16 | NUR ---
NO ACUTE CHANGES. PT IS PLEASANT AND COOPERATIVE WITH CARES. HE HAS BEEN UP IN CHAIR AND HAS BEEN ABLE TO FEED SELF THIS SHIFT. CALL LIGHT WITHIN REACH.
--- NOTE | 2020-04-11 19:00 | NUR ---
ASSUMED CARE RECEIVED REPORT FROM ENMA JONES. PT LYING IN BED WATCHING TV, IN NO ACUTE DISTRESS. NO ACUTE NEEDS ASSESSED AT THIS TIME. CALL LIGHT, POSSESSIONS IN REACH, BED IN LOW POSITION WITH ALARMS ON. CONTINUE TO MONITOR.
--- NOTE | 2020-04-12 03:54 | NUR ---
SHIFT SUMMARY PT ASLEEP, IN NO ACUTE DISTRESS. SLEPT ON AND OFF T/O NIGHT, EASILY AROUSABLE. VS REVIEWED,WNL. NO ACUTE CHANGES IN CONDITION NOTED T/O NIGHT. PT CALLS AND MAKES NEEDS KNOWN APPROPRIATELY. NO ACUTE NEEDS ASSESSED AT THIS TIME. CALL LIGHT, POSSESSIONS IN REACH, BED IN LOW POSITION WITH ALARMS ON. CONTINUE TO MONITOR, REPORT OFF TO DAY RN.
--- NOTE | 2020-04-12 17:29 | NUR ---
SHIFT SUMMARY: NO ACUTE EVENTS. DENIES PAIN. TOLERATING PO INTAKE. HAD 2 BM'S AFTER SUPPOSITORY AND ENEMA, VERY HARD, PROBABLY NEEDS BOWEL MEDS DAILY. ONE TO TWO PERSON ASSIST AND GAIT BELT FOR TRANSFERS. IN CHAIR MOST OF THE AFTERNOON.
--- NOTE | 2020-04-13 04:40 | NUR ---
SHIFT SUMMARY PT SLEPT WELL THROUGH MUCH OF THE NIGHT. HAD ONE SMALL HARD BM WITH A SMALL AMOUNT OF LIQUID BM AROUND IT. DENIED FEELING THE NEED TO HAVE ANY FURTHER BM'S. SCHEDULED HS BOWEL CARE GIVEN. PT USED URINAL W/ ASSISTANCE MOST OF THE NIGHT, DOES HAVE MOMENTS OF INCONTINENCE. PT WAS ABLE TO EAT MOST OF HIS DINNER INDEPENDENTLY, ONLY REQUIRING A SMALL AMOUNT OF ASSISTANCE AT THE END. PT HAS SEVERE BASELINE TREMORS. NO ACUTE CHANGES THIS SHIFT. VITAL SIGNS STABLE. WILL CONTINUE TO MONITOR.
--- NOTE | 2020-04-13 10:24 | NUR ---
04/13/20- CALL WAS PLACED TO [facility] IN [place]. THEY HAVE AN OPENING AND THEY DO ACCEPT INDIVIDUALS ON [address]. WAS ADVISED THAT THEY ARE ON EXECUTIVE ORDER BUT THEY ARE GETTING PEOPLE PLACED WITH SPECIAL CIRCUMSTANCES. FAXED PACKET TO THIAGO AT [phone]. THIAGO CAN BE REACHED BY PHONE AT [phone] -KJW 04/12/20- ATTEMPTED TO REACH PUNEET WITH [employer] TO SEE IF SHE WAS ABLE TO SPEAK WITH [facility] IN [place]. LMOM.- KJW
--- NOTE | 2020-04-13 14:42 | NUR ---
Patient talks at length about the direction he is now leaning toward for palcement as he agrees with some many hospital staff about his declining condition and the kinds of facilities that would best meet his needs. He tells me about the last few conversations he has had with his daughters and then he shares several stories about the girls lives growing up and his role in it. We discuss his misty and his need to fully trust God. I listen empathically and provide prayer and emotional support. I will continue to remain available to patient and family.
--- NOTE | 2020-04-13 16:41 | NUR ---
PATIENT IS ALERT AND ORIENTED AND COOPERATIVE WITH CARE. TREATED FOR PAIN PER EMAR. GIVEN PRN MIRALAX THIS MORNING. NO NEWS ON PLACEMENT. PATIENT IS UP IN THE RECLINER. WILL CONTINUE TO MONITOR
--- NOTE | 2020-04-14 05:42 | NUR ---
SHIFT SUMMARY NO ACUTE CHANGES THIS SHIFT. PT CONTINUES TO HAVE BASELINE TREMORS. ATE DINNER WELL. VOIDING WELL. NO COMPLAINTS OF PAIN. SLEPT OFF AND ON THROUGH THE NIGHT WHEN NOT WAKING TO VOID. CONTINENT THROUGH MOST OF THE SHIFT. HAVING ONE EPISODE OF INCONTINENCE DUE TO URGENCY. VITAL SIGNS STABLE. PT RESTING IN BED AT THIS TIME. CONTINUES TO AWAIT PLACEMENT. WILL CONTINUE TO MONITOR.
--- NOTE | 2020-04-14 16:39 | NUR ---
Patient being seen by Dr Mendoza 04/14, , Dr Torres starting 04/17. cp No eta for discharge at this time pending placment. cp
--- NOTE | 2020-04-14 16:44 | NUR ---
ADMIT:03/15/20 DISCHARGE: DX: afib, chf CC: [facility] Page 2 SAM CALL: Will require placment due to memory deficets RESIDENCE: Paula case managment is looking for longterm care, memory. CAREGIVER: no hippa contacts EFAngela Amaya [phone]- Friend, will be ride home from Hospital. RACHEL HERRMANN [phone]. SON. Medicaid counseling case manager - Clara Mccord [phone] DX: htn, copd, hearing loss, AFIB, CHF, see list. DME: no record CCM: no record HOME HEALTH: no record SUMMARY: ADMIT 03/15/20 04/14/[address] Mendoza 04/14 04/15 04/16 Dr Torres starting 04/17. cp 04/14/20 Michelle MCM s/w [facility], they are looking for diagnosis, history causing dementia symptoms, behaviors. He will need a payee. Michelle will call son Jesse to discuss payee and patient history. cp 04/13/20 Met with Gato and Emma from [facility], they were reveiwing another patient, wanted to check in again on Larroxanes current status. Told her I s/w counseling case manager at [employer], Financials complete on the . cp
--- NOTE | 2020-04-14 20:33 | NUR ---
ASSUMPTION OF CARE. HEMANTH IS ALREADY IN BED, HE IS VERY TIRED AND READY TO GO TO SLEEP. REPOSITIONED WITH PILLOW UNDER LEFT HIP. BOTTOM IS GETTING VERY SORE AND RED. ENCOURAGED HIM TO MAKE SURE HE IS REPOSITIONED OFTEN. DENIES ANY ACUTE CHANGES TODAY. GOOD APPETITE. HAD BM PRIOR TO SHIFT. URINATED YELLOW CLEAR URINE. VOIDS VERY LITTLE ENCOURAGED WATER INTAKE. GAVE HIM SOME THICKEN WATER. STILL AWAITING PLACEMENT. CALL LIGHT IS IN REACH.
--- NOTE | 2020-04-15 05:24 | NUR ---
SHIFT SUMMARY: JUSTIN HAS BEEN VERY TIRED THIS SHIFT. WOULD WAKE UP TO TAKE HIS MEDICATION OR USE THE URINAL BUT THEN GOES RIGHT BACK TO SLEEP. REPOSITIONED EVERY 2 HOURS. PAIN MANAGED WITH CURRENT TREATMENT. VS WNL, AFEBRILE. AWAITING PLACEMENT. NO ACUTE CHANGES THIS SHIFT. CALL LIGHT IS IN REACH.
--- NOTE | 2020-04-15 17:20 | NUR ---
SHIFT SUMMARY PT UP TO CHAIR ONCE TODAY WITH 2P ASSIST. PT TOLERATING PO INTAKE & FLUIDS WELL. PT RECIEVED BEDBATH TODAY. EGGCRATE PLACED IN ROOM TO BE PUT ON BED NEXT TIME PT GETS UP. PT TOELRATING REPOSITIONS Q2H. CURRENTLY UP IN BED EATING DINNER. CALL LIGHT IN REACH. DENIES OTHER NEEDS AT THIS TIME. PLACEMENT BEING WORKED ON BY DC PLANNING.
--- NOTE | 2020-04-16 05:22 | NUR ---
04/16/20 0515 PT SLEPT ON AND OFF. REPOSITIONED Q 2 HOURS. VOIDED IN URINAL SEVERAL TIMES. VITALS STABLE. DENIES ANY DISCOMFORT OR OTHER S/S THIS SHIFT.
--- NOTE | 2020-04-16 18:02 | NUR ---
SHIFT SUMMARY PT GOT UP INTO CHAIR FOR LUNCH TODAY. EGG-CRATE PLACED TO BED WHEN PT WAS UP FOR ADDED COMFORT. FOAM PLACED TO PT BOTTOM FOR PREVENTION WELL. AWAITING PLACEMENT PER DC PLANNING. PT PLEASANT & COOPERATIVE T/O SHIFT. VS REVIEWED. PT UP IN BED, EATING DINNER. CALL LIGHT IN REACH.
--- NOTE | 2020-04-17 08:00 | NUR ---
04/17/20 0545 REPOSITIONED Q 2 HOURS WITH PILLOWS. VITALS REMAIN STABLE. TOOK ONLY ORAL FLUIDS LIKE ENSURE AND NECTAR THICK JUICES. VOIDED TWICE. UNEVENTFUL NIGHT.
--- NOTE | 2020-04-17 18:52 | NUR ---
SHIFT SUMMARY ANUPAM COMPLAINED OF GENERALIZED PAIN AND GOT TYLENOL THIS SHIFT. UP TO CHAIR WITH AO2 AND GAIT BELT. CONTINENT STOOL AND URINE, HAD 2 LARGE BM THIS SHIFT. TREMORS PRESENT, GOT FEED ASSIST WITH ASP PRECAUTIONS. LOW BP IN A.M., SPOKE TO DR BELL AROUND 10AM, WE WILL CONTINUE TO MONITOR, PT ASYMPTOMATIC. TOOK MEDS PRESCRIBED, WCTM
--- NOTE | 2020-04-18 06:46 | NUR ---
04/18/20 0600 VITALS STABLE THIS SHIFT. TAKING ORAL FLUIDS WELL. NO BM THIS SHIFT. REPOSITIONED Q 2 HOURS. UNEVENTFULL NIGHT.
--- NOTE | 2020-04-18 14:46 | NUR ---
Spiritual care visit conducted. Patient tells me about an exciting opportunity at the the local [place] facility for placement. Because of his 3 sons and their service, he may be eligible. Patient also talks about an exercise machine in the PT gym that has helped loosen up considerably. Patient then talks at length about his sons and their achievements and then his daughters and how proud he is of them all. He tells me about their struggles as well. Patient continues to emphasize how he longs to be in a country type environment that can inspire him. He continues to express gratitude for the amazing staff at the hospital who take exceptional care of him and are watching out for his best interest. I provide companionship and prayer. Patient responds well and shows signs of being able to find peace in his trying circumstances.
--- NOTE | 2020-04-18 14:57 | NUR ---
04/18/20- RECEIVED CALL FROM [facility] IN [place] ABOUT PT'S APPT. UPDATED THEM THAT PLAN FOR PT TO MOVE TO THAT AREA FELL THROUGH AND CANCELLED APPT. CALLED [facility] TO CONFIRM THAT THEY WILL BE COMING TO VISIT THE PT TODAY, WAS INFORMED THAT THIAGO, WHO IS DOING THE INTERVIEW, HAD LEFT FOR HER APPT. -GISELE
--- NOTE | 2020-04-18 19:25 | NUR ---
SHIFT SUMMARY [facility] CAME AND ASSESSED PT AT 2PM. PT STATES SHE SAID SHE WILL ACCEPT HIM AT THE END OF NEXT WEEK. GOT BED BATH. UP TO CHAIR FOR LUNCH WITH AO2 AND GAIT BELT. CONTINENT IN URINAL. DENIED PAIN, CALLED APPROPRIATELY, VERY PLEASANT. ATE MEALS WITH FULL MEAL SET UP AND SOME PARTIAL ASSIST. CALL LIGHT IN REACH, REPORT GIVEN TO NIGHT NURSE
--- NOTE | 2020-04-19 04:13 | NUR ---
CHEF ASSISTANT SUMMARY A/O X4, PT APPEARED TO SLEEP T/O THE NIGHT. DENIES PAIN OR SOB. PLAN IS TO [facility]C TO [facility] W[facility] PER PT. NO ACUTE CHANGES AT THIS TIME. BED IN LOWEST POSITION WITH CALL LIGHT IN REACH. WILL CONTINUE TO MONITOR AND REPORT TO ONCOMING RN.
--- NOTE | 2020-04-19 15:00 | NUR ---
Spiritual care visit conducted. Patient tells me about his meeting on 04/18/20 with a staff member from [facility] and how she accepted him "on the spot" to fill an opening they have. Patient looks forward to having his space and being able to go outside. Patient states that he waited all this time so God could arrange the just the right place with just the right people. He again voices his appreciation for the hospital staff for all their care, patience and kindness. I provide therapeutic listening and prayer. Patient voices gratitude for the visit.
--- NOTE | 2020-04-19 17:27 | NUR ---
04/19/20- received call today that pt has been accepted by [facility] in [place]. Nancy with [facility] is working on getting him placed. She requested a SLUM or MOCA eval for pt's cognitive status. Attempted to call Fatimah Polo, with speech to see if one of these evals has been completed. Cognitive eval will need to be faxed to [facility]. [facility] will be able to take the patient either or Fri. next week. Spoke with pt about this, he is excited and looks forward to getting out of the hospital. He does not have any belongings that will need to be gathered to go with him. Contacted Vaishali with [employer], she is agreeable with this plan. She stated during call that pt is due for Medicaid Assessment and she will complete this prior to transferring his case to [facility]. -alyse
--- NOTE | 2020-04-19 18:27 | NUR ---
PT PLEASANT TODAY. NO C/O PAIN. TAKING MEDS PRESCRIBED. HAD HIM IN CHAIR FOR SOME TIME TODAY. TRANSFERRED BACK TO BED WITH 2 ASST STAND AND PIVOT. NO NEW CONCERNS AT THIS TIME. BED IN LOW POSITION, CALLLITE IN REACH, CALLS APPROP
--- NOTE | 2020-04-20 04:55 | NUR ---
MANUFACTURING ENGINEER SUPERVISOR SUMMARY PT A&OX3, ABLE TO MAKE NEEDS KNOWN. PLEASANT AND COOPERATIVE TO CARE. NO ACUTE CHANGES NOTED TO PT THIS SHIFT. NO C/O PAIN OR ANY DISCOMFORT. DENIES CP, SOB, OR N/V/D. PT CALM AND RESTED IN BED T/O SHIFT. BED AT LOWEST POSITION. CALL LIGHT WITHIN REACH.
--- NOTE | 2020-04-20 17:06 | NUR ---
NO ACUTE CHANGES TO PT. HE HAS BEEN UP IN CHAIR, FEEDING HIMSELF. HE REQUIRES SOME ASSISTANCE WHEN HE TIRES BUT IS MOSTLY ABLE TO DO IT HIMSELF. HE IS PLEASANT AND ORIENTED. 1-2 ASSIST TO TRANSFER. PT IS ABLE TO EXPRESS ANY NEEDS.
--- NOTE | 2020-04-21 06:01 | NUR ---
SUMMARY PT HAS SLEPT T/O SHIFT. PT HAD NO ISSUES NOTED. PT CURRENTLY SLEEPING IN NO DISTRESS. CALL LIGHT IN REACH
--- NOTE | 2020-04-21 12:03 | NUR ---
Spiritual care visit conducted. Patient is sitting on a chair and alert. Patient tells me about his successful PT and OT visits and his breakthrough with Social Security in getting his funds released. Patient then needs assistance from PERFUMER and I let him use the bedside comode.
--- NOTE | 2020-04-21 18:10 | NUR ---
SHIFT SUMMARY NO ACUTE CHANGES THIS SHIFT. PT A/O X4 AND HAS ADVANCED PARKINSON'S DISEASE. 2 PERSON MAX ASSIST TO GET UP. ABLE TO MAKE NEEDS KNOWN. VSS. RESTING COMFORTABLY IN BED WITH HIS CALL LIGHT IN REACH.
--- NOTE | 2020-04-21 22:30 | NUR ---
ASSUMPTION OF CARE. HEMANTH WAS ABLE TO GET UP TO BSC WITH 2 PERSON ASSIST. ENEMA WAS GIVEN DUE TO DIFFICULTY GOING. EXTRA LARGE BM NOTED. WAS ABLE TO STAND HOLDING ONTO THE BED AND GET SELF IN BED WITH VERY MINIMAL ASSIST. DENIED ANY CHANGES RECENTLY. LUNGS CLEAR, HR REGULAR. WILL CONTINUE TO MONITOR. CALL LIGHT IN REACH.
--- NOTE | 2020-04-22 04:33 | NUR ---
SHIFT SUMMARY: HEMANTH HAD A GOOD NIGHT. WAS ABLE TO GET SELF FROM THE COMMODE INTO BED WITH MINIMAL ASSISTANCE TONIGHT. RECEIVED A ENEMA WITH EXTRA LARGE BM RESULT. SLEPT WELL T/O THE NIGHT. VS WNL, AFEBRILE. PAIN MANAGED WITH CURRENT TREATMENT. CALL LIGHT USED APPROPRIATLY.
--- NOTE | 2020-04-22 17:18 | NUR ---
PT IS A/OX3, PLEASANT AND COOPERATIVE, THE PT IS UP WITH 1-2 PERSON ASSIST TO THE CHAIR, THE PT WAS UP THIS AM TO THE CHAIR FOR BREAKFAST AND STAYED IN THE CHAIR UNTIL AFTER LUNCH, THE PT DECLINED TO GET UP FOR DINNER, THE PT WAS UP IN HIGH FOWLERS POSITION AND ASSISTED WITH DINNER BY THE CARDING UTILITY TENDER, THE PT APPEARED TO BE BREATHING EASILY T/O THE DAY ON RA, PT HAS SEVERE TREMORS DUE TO PARKINSONS DISEASE, PT IS AWAITING PLACEMENT BEFORE DISCHARGE, CALL LIGHT IN REACH NO OTHER CHANGES NOTICED THIS SHIFT
--- NOTE | 2020-04-23 07:20 | NUR ---
SHIFT SUMMARY PT IS A 55 Y/O MALE, ORIGINALLY ADMITTED FOR ALCOHOL WITHDRAWAL AND CURRENTLY AWAITING PLACEMENT. HE IS A&O X 3, WITH SOME SPEECH IMPEDIMENT. HX OF PARKINSONS WITH BUE TREMORS NOTED. PT MEDICATED FOR CHRONIC PAIN WITH SCHEDULED PAIN MEDICATION. NO C/O NAUSEA OR SOB. VITAL SIGNS STABLE. NO ACUTE CHANGES IN PT CONDITION NOTED. WILL CONTINUE TO MONITOR AND TREAT PER EMAR UNTIL HAND OFF TO DAY SHIFT RN.
--- NOTE | 2020-04-23 19:24 | NUR ---
SHIFT SUMMARY PATIENT MEDICATED SCHEDULED FOR PAIN, DENIES NAUSEA AND SHORTNESS OF BREATH. UP IN CHAIR FOR MEALS, TRANSFER 1-2 MAX STAND PIVOT. EATING AND DRINKING WELL. SISTER IN LAW ROBERT ATTEMPTED TO GAIN INFORMATION ABOUT PATIENT BY PRESENTING HERSELF HIS SISTER OVER THE PHONE. SHE WAS DENIED ACCESS TO PATIENT AND PATIENT INFORMATION.
--- NOTE | 2020-04-24 06:45 | NUR ---
SHIFT SUMMARY PT IS A 55 Y/O MALE, ADMITTED FOR ETOH WITHDRAWAL AND CURRENTLY AWAITING PLACEMENT. HE IS A&O X 3 WITH SLURRED SPEECH, PARKINSONS WITH BUE TREMORS AT BASELINE. HE WAS MEDICATED FOR CHRONIC PAIN WITH SCHEDULED BUPRENORPHINE. NO C/O NAUSEA OR SOB. VITAL SIGNS STABLE. NO ACUTE CHANGES IN PT CONDITION NOTED DURING THE NIGHT. WILL CONTINUE TO MONITOR AND TREAT PER EMAR UNTIL HAND OFF TO DAY SHIFT RN.
--- NOTE | 2020-04-24 13:13 | NUR ---
Spiritual care visit conducted. Patient educates me on many of the nuances of the Parkinson's Disease including the loss of being able to make facial expressions and the constant struggle with constipation. Patient then tells me that he has no idea what the facility is like where he is going so I pull up the [facility] facility up on-line and show him pictures. Patient asks if I could shave his head so he looks good when he arrives and can make a good 1st impression. He informs me that RN's do not do this kind shaving. I gladly shave patient's head and patient voices much gratitude for this help. We talk about stategies for dealing with his progressive disease and how to stay out in front of it emotionally/spiritually. Patient responds well and shows signs of greater peace about his future. I will continue to remain available to patient and family.
--- NOTE | 2020-04-24 19:54 | NUR ---
SHIFT SUMMARY: NO ACUTE CHANGES TO REPORT THIS SHIFT. PT A&O; SLURRED SPEECH; CALM AND COOEPRATIVE WITH CARE. MEDICATED FOR PAIN PER EMAR. ASPIRATION PRECAUTIONS. PHYSICAL THERAPY FOLLOWING. AWAITING PLACEMENT. REPORT GIVEN TO ONCOMING RN.
--- NOTE | 2020-04-25 05:54 | NUR ---
SHIFT SUMMARY NO ACUTE CHANGES THIS SHIFT. AOX4. VSS. MEDICATED PER EMAR FOR CHRONIC PAIN. AWAITING PLACEMENT. CALL LIGHT IN REACH & PT ABLE TO MAKE NEEDS KNOWN.
--- NOTE | 2020-04-25 15:23 | NUR ---
ASSUMED PT CARE @8239. CLIENT HAS BEEN AA7OX4. PT PLEASANT AND COOPERATIVE. 1 ASSIST. CALLS APPROPRIATELY. APPETITE GOOD. DENIES PAIN. NO STATED CONCERNS AT THIS TIME
--- NOTE | 2020-04-25 18:51 | NUR ---
NO MAJOR CHANGES. PT AA&OX4, PLEASANT AND COOPERATIVE. PAIN WELL CONTROLLED. 1ASSIST. WILL BE TRANSFERING TO [facility] 04/26 OR 04/25. CLIENT AGREEABLE WITH THIS PLAN. NO STATED CONCERNS.
--- NOTE | 2020-04-26 06:01 | NUR ---
SHIFT SUMMARY NO ACUTE CHANGES THIS SHIFT. AOX3. VSS. SLEPT WELL T/O NIGHT. REPORTS 09/02 CHRONIC PAIN, MEDICATED PER EMAR. DENIES SOB, N/V. TAKES MEDS 1@ A TIME IN APPLESAUCE. CONTINENT c URINAL. PLAN IS TO DC TO [facility] TODAY OR TOMORROW PER REPORT. CALL LIGHT IN REACH & PT ABLE TO MAKE NEEDS KNOWN.
--- NOTE | 2020-04-26 11:50 | NUR ---
Spiritual care visit conducted. Patient tells me about the lack of sleep he has experience as he anticipates his upcoming DC. Patient also shares about how much he misses his family and wishes they could visit or he could visit them. Patient explains about some of the fears and excitement he feels about leaving the hospital after such a long stay. I listen empathically and provide companionship and prayer. Patient responds well and shows signs of reduced stress. I will continue to remain available to patient and family.
--- NOTE | 2020-04-26 18:05 | NUR ---
Client AA&Ox4, pleasant and cooperative. Denies pain. Good appetite. Fleet enema administered, Pt with large BM. Client to discharge to [place] on Friday04/28/20. Client has no questions or concerns at this time
--- NOTE | 2020-04-27 06:42 | NUR ---
SHIFT SUMMARY- PT. A&O, PLEASANT AND COOPERATIVE WITH CARE. HAD NO ACUTE EVENTS OVERNIGHT, APPEARED TO HAVE RESTED COMFORTABLY T/O THE NIGHT. PT. DENIED ANY NEEDS DURING THE NIGHT. NO APPARENT DISTRESS NOTED. CALL LIGHT WITHIN REACH AND SIDE RAILS UPX2. WILL CONT TO MONITOR.
--- NOTE | 2020-04-27 15:41 | NUR ---
HE HAS BEEN UP IN THE RECLINER CHAIR SINCE AFTER BREAKFAST, SOMETIMES RECLINED AND SOMETIMES WITH FEET ON THE FLOOR. HIS ARM TREMORS ARE SEVERE BUT HE CAN STILL PARTIALLY FEED HIMSELF WITH THE WEIGHT ON HIS WRIST AND CAN DO SOME OF HIS PAPER SORTING. I ALSO DIALED THE PHONE FOR HIM TO SPEAK TO SS. HE HELD THE PHONE BUT COULD NOT DIAL. NO COMPLAINTS. HE IS LOOKING FORWARD TO LEAVING TOMORROW.
[2020-04-27] MEDS ORDERED: BISA10S PR (17:52)
[2020-04-27] MEDS ORDERED: ACET500 PO (17:52)
[2020-04-27] MEDS ORDERED: ATOR40TA PO (17:52)
[2020-04-27] MEDS ORDERED: LACT10SY PO (17:54)
[2020-04-27] MEDS ORDERED: MICO100S TOP (17:54)
[2020-04-27] MEDS ORDERED: SENNA LAXATIVE8.6 MG PO (17:55)
[2020-04-27] MEDS ORDERED: VISBIOME 112.51 EACH PO (17:55)
[2020-04-27] MEDS ORDERED: ONDA4ODT MM (17:55)
--- NOTE | 2020-04-27 19:02 | NUR ---
HE IS BACK IN BED AFTER BEING UP A LOT OF THE DAY. HE HAS HAD AN UNEVENTFUL DAY AND PLAN IS TO DISCHARGE HIM TOMORROW.
--- NOTE | 2020-04-28 05:47 | NUR ---
SHIFT SUMMARY- NO ACUTE EVENTS OVERNIGHT. PT. APPEARED TO HAVE SLEPT COMFORTABLY MOST OF THE NIGHT, NO APPAARENT DISTRESS NOTED. MEDICATIONS TAKEN W/O DIFFICULTY. TOLERATING PO NECTAR THICKENED FLUIDS WELL. REPOSITIONED FOR COMFORT AND PRN. NEW MEPILEX DSG APPLIED TO SACRUM. PT. HAD NO COMPLAINTS T/O THE THE SHIFT, VSS. PLAN FOR [facility] [place] TODAY. CALL LIGHT WITHIN REACH AND SIDE RAILS UPX2. WILL CONT TO MONITOR.
[2020-04-28] MEDS ORDERED: BUPRENORPHINE HC2 MG SL (08:14)
[2020-04-28 08:47] LABS: Influenza A, PCR NEGATIVE (NEGATIVE); Influenza B, PCR NEGATIVE (NEGATIVE); Resp Syncytial Virus, PCR NEGATIVE (NEGATIVE); SARS-Cov-2 (COVID-19) PCR, MMC NEGATIVE (NEGATIVE)
--- NOTE | 2020-04-28 11:19 | NUR ---
Spiritual care visit conducted. Patient is sitting on a chair and alert. Patient tells me that he is "all nerves" about his transfer to a SNF in [place] today. I help him gather his personal belongings, and provide anxiety containment and prayer. Patient responds well and shows signs of increased peace.
--- NOTE | 2020-04-28 13:33 | NUR ---
DISCHARGE SUMMARY PT AxOx4 WITH OCCASIONAL CONFUSION/DIFFICULTY COMMUNICATING. PLEASANT AND COOPERATIVE WITH CARE. SEVERELY MOBILITY LIMITATION D/T ADVANCED PARKINSON'S DISEASE. PT DC'ING TODAY TO [facility]. REPORT CALLED TO ENMA ARTEAGA AT [facility]. VITALS REVIEWED. PT DENIES ANY FURTHER NEEDS AT THIS TIME. PT TRANSFERRED TO FOR TRANSPORT BY 2 PERSON ASSIST WITH FWW AND GB. DC PACKED GIVEN TO TRANSPORTER. SHUTTLE FINAL INSPECTOR ESCORTED TRANSPORTER AND PATIENT OUT.
== END 2020-04-28 13:33 | DRG 896 ==
LOC: ER 11:38 → MEDS 17:18 → PCU 17:18 → MEDS 02-03 16:40 → EDPENDDIS 03-31 08:27 → ENPENDDIS 03-31 08:27 → MEDS 04-28 13:33
PROVIDERS: Emergency Medicine; Family Medicine; Hospitalist; Internal Medicine; ADMIT Family Medicine
DX: F10.230 Alcohol dependence with withdrawal, uncomplicated (principal); J69.0 Pneumonitis due to inhalation of food and vomit; F33.9 Major depressive disorder, recurrent, unspecified; I69.951 Hemiplegia and hemiparesis following unspecified cerebrovascular disease affecting right dominant side; F19.10 Other psychoactive substance abuse, uncomplicated; F90.9 Attention-deficit hyperactivity disorder, unspecified type; F32.89 Other specified depressive episodes; M54.40 Lumbago with sciatica, unspecified side; R62.7 Adult failure to thrive; G20 Parkinson's disease; Z23 Encounter for immunization; R53.81 Other malaise; B35.4 Tinea corporis; F11.23 Opioid dependence with withdrawal; F43.0 Acute stress reaction; I48.91 Unspecified atrial fibrillation; Y90.3 Blood alcohol level of 60-79 mg/100 ml; Z66 Do not resuscitate
CPT/HCPCS: 0241U; 36415; 71045; 71046; 80048; 80053; 80076; 83690; 83735; 84100; 85025; 85610; 85651; 86140; 87086; 92523; 92526; 92610; 96361; 96365; 96366; 96375; 97110; 97110-CQ; 97112; 97116; 97162; 97166; 97168; 97530; 97530-CQ; 97535; 99285-25; A9270; A9270-GY; G0008; G0480; J0295; J1644; J1650; J2060; J2405; J3411; J3475; J7030; J7042; J7050; J7120; Q2038

== ENCOUNTER 2023-07-26 15:58 | Observation (INO) | payer MEDICARE, OTHER ==
[~2023-07-26] VITALS: Ht 180.3 cm; Wt 93.0 kg
[~2023-07-26 15:58] MED LIST changes: +ACET500 PO; +AMPDEX5 PO; +ATOR40TA PO; +B-1100 M1 PO; +BISA10S PR; +BUPRENORPHINE HC2 MG SL; +BUPRENORPHINE HC8 MG SL; +COLACE100 MG PO; +DIAZ10 PO; +FAMO20 PO; +FOLI1 PO; +LACT10SY PO; +MICO100S TOP; +MIRALAX17 GM PO; +NARCAN4 M1; +SENNA LAXATIVE8.6 MG PO; +TRAZ50 PO; +VISBIOME 112.51 EACH PO
[2023-07-26 16:24] LABS: BASOPHILS ABSOLUTE AUTO 0.03 K/mm3 (0.00-0.23); BASOPHILS PERCENT AUTO 1 % (0-2); EOSINOPHILS ABSOLUTE AUTO 0.03 K/mm3 (0.00-0.68); EOSINOPHILS PERCENT AUTO 1 % (0-6); Hematocrit 45.6 % (37.0-53.0); Hemoglobin 15.2 g/dL (13.5-17.5); IMMATURE GRAN ABSOLUTE AUTO 0.02 K/mm3 (0.00-0.10); IMMATURE GRAN PERCENT AUTO 0 % (0-1); LYMPHOCYTES ABSOLUTE AUTO 1.36 K/mm3 (0.84-5.20); LYMPHOCYTES PERCENT AUTO 22 % (21-46); MONOCYTES ABSOLUTE AUTO 0.56 K/mm3 (0.16-1.47); MONOCYTES PERCENT AUTO 9 % (4-13); Mean Corpuscular HGB 28.7 pg (26.0-34.0); Mean Corpuscular HGB Conc 33.3 g/dL (31.5-36.5); Mean Corpuscular Volume 86 fL (80-100); Mean Platelet Volume 9.6 fL (9.1-12.4); NEUTROPHILS ABSOLUTE AUTO 4.28 K/mm3 (1.96-9.15); NEUTROPHILS PERCENT AUTO 68 % (41-73); Platelet Count 235 K/mm3 (150-400); RDW Coefficient Variation 13.1 % (11.7-14.2); RDW Standard Deviation 40.8 fL (35.1-46.3); White Blood Cell Count 6.28 K/mm3 (4.00-11.30)
[2023-07-26 16:41] LABS: Albumin, Blood 4.3 g/dL (3.4-5.0); Bilirubin, Total 0.3 mg/dL (0.1-1.0); Bun/Creatinine Ratio 18.8 (12.0-20.0); Calcium, Blood 9.2 mg/dL (8.5-10.1); Creatinine, Blood 0.64 mg/dL (0.60-1.20); Globulin, Blood 4.1 g/dL (2.2-4.0); Total Protein, Blood 8.4 g/dL (6.4-8.2)
[2023-07-26 19:37] LABS: Source, Urine Clean Catch
[2023-07-26 19:45] LABS: Appearance, Urine Clear (Clear); Bilirubin, Urine Neg (Neg); Blood, Urine 1+ (Neg); Color, Urine Yellow (P-Yellow); Glucose Qualitative, Urine Neg (Neg); Ketones, Urine Neg (Neg); Leukocyte Esterase, Urine Neg (Neg); Nitrite, Urine Neg (Neg); Protein, Urine 3+ (Neg); Specific Gravity, Urine 1.015 (1.003-1.022); Urobilinogen, Urine NORM (Normal)
[2023-07-26 20:04] LABS: Bacteria Mod /hpf; Squamous Epithelial Cells Rare /hpf (Few); White Blood Cells, Urine 0-2 /hpf (0-5)
[2023-07-26 20:05] LABS: Mucus Light (0-Heavy); Spermatozoa Few /hpf
[2023-07-26] MEDS ORDERED: Acetaminophen 325 MG TABLET PO PRN (20:10)
[2023-07-26 20:11] LABS: U Benzodiazapine Screen DETECTED; U Buprenorphine Screen DETECTED
[2023-07-26 20:12] LABS: U Amphetamine Screen Not Detected; U Barbituate Screen Not Detected; U Cannabinoids Screen Not Detected; U Cocaine Screen Not Detected; U Methadone Screen Not Detected; U Methamphetamine Screen Not Detected; U Opiates Screen Not Detected; U Oxycodone Screen Not Detected; U Phencyclidine Screen Not Detected
[2023-07-26] MEDS ORDERED: Polyethylene Glycol 3350 17 gm PO SCH (21:00)
[2023-07-26] MEDS ORDERED: Levodopa/Carbidopa 100 / 25 MG Tab PO SCH (21:00)
[2023-07-26] MEDS ORDERED: Diazepam 5 MG Tab PO SCH (21:00)
[2023-07-26] MEDS ORDERED: Sennosides 8.6 MG Tab PO SCH (21:00)
[2023-07-26 21:35] VITALS: BP 174/90
[2023-07-26] MEDS ORDERED: ARTIFICIAL TEAR15 M2 BOTHEYES (22:36)
[2023-07-26] MEDS ORDERED: Betamethasone V15 G1 TOP (22:38)
[2023-07-26] MEDS ORDERED: ZYRTEC10 M2 PO (22:39)
[2023-07-26] MEDS ORDERED: Celexa20 MG PO (22:40)
[2023-07-26] MEDS ORDERED: ALEVAZOL56.7 G1 TOP (22:40)
[2023-07-26] MEDS ORDERED: ALEVE ARTHRITI100 GM TOP (22:41)
[2023-07-26] MEDS ORDERED: FERSU300 PO (22:42)
[2023-07-26] MEDS ORDERED: IBUP200 PO (22:43)
[2023-07-26] MEDS ORDERED: DULCOLAX400 MG/5 M PO (22:44)
[2023-07-26] MEDS ORDERED: Promod946 ML PO (22:46)
[2023-07-26] MEDS ORDERED: TRIDERM28.4 GM TOP (22:47)
[2023-07-27 02:52] VITALS: BP 146/81
[2023-07-27] MEDS ORDERED: Ondansetron HCl 2 MG / ML 2ML Vial IV PRN (03:00)
[2023-07-27] MEDS ORDERED: Melatonin 5 MG Tablet PO PRN (03:00)
[2023-07-27 07:38] VITALS: BP 163/91
[2023-07-27] MEDS ORDERED: Enoxaparin 40 MG/0.4 ML SYR SC SCH (09:00)
[2023-07-27] MEDS ORDERED: buprenorphine HCL 2 MG TAB.SUBL SL SCH (13:20)
[2023-07-27] MEDS ORDERED: Amantadine HCl 100 MG Cap PO SCH ×2 (14:00)
[2023-07-27] MEDS ORDERED: Misc. Topical TOP PRN (14:05)
[2023-07-27] MEDS ORDERED: Loratadine 10 MG Tab PO PRN (14:05)
[2023-07-27 15:31] VITALS: BP 131/86
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
--- NOTE | 2023-07-27 17:57 | NUR ---
SHIFT SUMMARY SITS SELF UP IN BED. BED ALARM ON AND CHAIR ALARM NOW ON SINCE HE GOT UP IN A CHAIR FOR SUPPER. LAUGHS A LOT AND CHATTY WITH STAFF BUT CAN BE HARD TO UNDERSTAND. REPORTS PAIN FREQUENTLY AND ASKING FOR HIS SCHEDULED BUPRENORPHINE. TENTATIVE PLAN FOR PT TO DISCHARGE TOMORROW. SANTO AT [facility] [place] STATED SHE THINKS HE HAS RIDE BENEFITS WITH HIS INSURANCE. PT STATES HE THINKS HIS CAR IS IN THE [place]. HE ALSO STATES HE GENERALLY HAS HIS DEEP BRAIN STIMULATOR CHARGED ON MONDAYS AND HE HAS A FILAMENT CUTTER IN THE CAR THAT IS AT THE [place]. FOUND A RECEIPT FROM [email or web address] IN CHART AND CALLED [email or web address]. THEY REPORT PT HAS PERDOMO IN THE SAFE IN THEIR OFFICE.
[2023-07-27] MEDS ORDERED: Buprenorphine HCL/Naloxone HCL 8MG-2MG Tab SL SCH ×2 (18:00)
[2023-07-27 20:19] VITALS: BP 152/93
[2023-07-27] MEDS ORDERED: Docusate Sodium 100 MG Cap PO SCH (21:00)
[2023-07-27] MEDS ORDERED: Atorvastatin 40 MG Tab PO SCH (21:00)
[2023-07-27] MEDS ORDERED: Famotidine 20 MG Tab PO SCH (21:00)
[2023-07-27] MEDS ORDERED: Diazepam 10 MG Tab PO PRN (21:25)
[2023-07-27] MEDS ORDERED: Diazepam 5 MG Tab PO ONE (22:35)
[2023-07-28 02:01] VITALS: BP 143/84
--- NOTE | 2023-07-28 04:40 | NUR ---
SHIFT SUMMARY: ANUPAM IS A&OX3-4. VSS, NO ACUTE EVENTS OVERNIGHT. HE IS TOLERATING PO INTAKE WELL, URINATING WITHOUT DIFFICULTY, AND REPORTS MINIMAL PAIN CONTROL WITH MEDICATIONS PER MAR. PT REPOSITIONS SELF TO HELP WITH PAIN CONTROL. IV TO L AC PATENT. HE IS LYING IN BED WITH THE CALL LIGHT IN REACH. WILL GIVE REPORT TO DAY SHIFT RN.
[2023-07-28 07:44] VITALS: BP 107/54
[2023-07-28] MEDS ORDERED: Citalopram Hydrobromide 20 MG Tab PO SCH (09:00)
[2023-07-28] MEDS ORDERED: Aspirin 81 MG Chew PO SCH (09:00)
[2023-07-28] MEDS ORDERED: Diazepam 5 MG Tab PO SCH (09:00)
--- NOTE | 2023-07-28 14:10 | NUR ---
PT AWAKE AT START OF SHIFT, RESTING QUIETLY FOWLERS. PT'S SPEECH IS VERY GARBLED AND DIFFICULT TO UNDERSTAND. PT WITH SEVERE PARKINSONS. DR BROWN IN TO SEE PT AND ATTEMPTED TO DISCUSS PLAN OF CARE. SANITATION TANK WASHER IN TO SEE PT AND ARRANGE D/C BACK TO FACILITY IN [place]. DEPARTMENT STORE GENERAL MANAGER FOR BRAIN STIMULATOR LEFT IN [facility] WILL BE REPLACED AND DELIVERED TO FACILITY TOMORROW AFTERNOON. PT ASSISTED TO W/C FOR D/C AND TAKEN BY SECURITY TO OBTAIN PACKAGE KEPT WHILE INPATIENT. PT LEFT WITH ENTIRE CONTENTS OF PACKAGE. PT RETURNING TO FACILITY VIA W/C TRANSPORT.
[2023-07-28] MEDS ORDERED: MELATONIN5 M1 PO (14:16)
[2023-07-28] MEDS ORDERED: SINEMET 25-1001 EAC1 PO (14:16)
== END 2023-07-28 13:55 | disposition home or self-care (01) ==
LOC: ER 15:58 → MEDS 15:59
PROVIDERS: Emergency Medicine; ADMIT Internal Medicine
DX: G20.A1 Parkinson's disease without dyskinesia, without mention of fluctuations (principal); F32.9 Major depressive disorder, single episode, unspecified; F11.90 Opioid use, unspecified, uncomplicated; F90.9 Attention-deficit hyperactivity disorder, unspecified type; I95.9 Hypotension, unspecified; Z66 Do not resuscitate; Z79.899 Other long term (current) drug therapy
CPT/HCPCS: 70450; 71045; 80053; 81001; 85025; 87086; 93005; 93010; 96372; 96374; 97110; 97116; 97162; 97165; 97535; 99285-25; A9270; G0378; J1650; J2405